=== PATIENT | female | born 1960 | race Hispanic/Latino ===

== ENCOUNTER 2018-05-16 17:55 | Emergency (ER) | payer BC ==
--- OUTSIDE RECORDS SUMMARY | 2018-05-16 17:57 | XMS REPORT | Clinical Summary ---
:1960 Author Organization [facility] Address [address] [place] [id number] Care Team Providers Name Role Phone Marco Marin MD Primary Care Provider Allergies Active Allergy Reactions Severity Noted Date Comments No Known Drug Allergies 03/15/2016 Medications Medication Sig Dispensed Refills Start Date End Date Status compress.stocking,kn Compression 1 each 1 04/02/2017 Active ee,reg,med Stockings use as miscIndications: directed Cardiac pacemaker in situ, Dizzy Active Problems Problem Noted Date Dizzy 04/02/2017 Cardiac pacemaker in situ 03/15/2016 Shortness of breath 03/15/2016 Syncope 03/15/2016 Encounters Date Type Specialty Care Team Description 10/18/2017 Hospital Encounter Procedural Jorge Luis Goodman Cardiology PhD 10/18/2017 Hospital Encounter Procedural Jorge Luis Goodman Cardiology PhD 10/18/2017 Hospital Encounter Radiology Roberto Carlos Nichols Transient cerebral MD Justice ischemia, unspecified type 08/30/2017 Transcribe Orders Radiology Malka Chapman Transient cerebral ischemia, unspecified type (Primary Dx) after 05/15/2017 Family History Medical History Relation Name Comments Coronary artery disease Other Family Hx Relation Name Status Comments Other Family Hx Social History Tobacco Use Types Packs/Day Years Used Date Never Smoker Smokeless Tobacco: Never Used Alcohol Use Drinks/Week oz/Week Comments Yes occasional Sex Assigned at Date Recorded Not on file Job Start Date Occupation Industry Not on file Not on file Not on file Travel History Travel Start Travel End No recent travel history available. Last Filed Vital Signs Vital Sign Reading Time Taken Blood Pressure 139/79 10/18/2017 1:52 PM CDT Pulse 70 10/18/2017 1:52 PM CDT Temperature - - Respiratory Rate 18 10/18/2017 1:00 PM CDT Oxygen Saturation 93% 10/18/2017 1:52 PM CDT Inhaled Oxygen Concentration - - Weight 81.6 kg (180 lb) 10/18/2017 1:00 PM CDT Height - - Body Mass Index 32.92 10/18/2017 1:00 PM CDT Plan of Treatment Health Maintenance Due Date Last Done Comments CERVICAL CANCER SCREENING 1981 BREAST CANCER SCREENING 2010 COLON CANCER SCREENING 2010 SHINGLES VACCINES (1 of 2) 2010 INFLUENZA VACCINE 12/18/2017 Procedures Procedure Name Priority Date/Time Associated Diagnosis Comments MRI BRAIN WO Routine 10/18/2017 2:00 PM Transient cerebral Results for this CONTRAST CDT ischemia, procedure are in unspecified type the results section. after 05/15/2017 Results MRI Brain Wo Contrast (10/18/2017 2:00 PM CDT) Narrative Performed At EXAMINATION:MRI BRAIN WO CONTRAST [facility] CLINICAL HISTORY:G45.9 Transient cerebral ischemic attackunspecified, G45.9 COMPARISON:MRI of the brain dated December 02, 2015 TECHNIQUE: Multiplanar MRI imaging without IV Gadolinium was performed. FINDINGS: The brain parenchyma is unremarkable with no signal abnormality. There is no evidence of acute infarction, hemorrhage, mass lesion, or midline shift. Ventricles, sulci, and cisterns are age-appropriate in size and configuration. There is no extra-axial fluid collection. Flow voids of the major intracranial vessels are intact. Visualized paranasal sinuses and mastoid air cells are clear. Bones, orbits, and soft tissues are unremarkable. IMPRESSION: Unremarkable brain MRI with no evidence of acute infarction, hemorrhage, or mass lesion. [facility]-[id number] Procedure Note Hm Interface, Radiology Results Incoming - 10/18/2017 2:44 PM CDT EXAMINATION: MRI BRAIN WO CONTRAST CLINICAL HISTORY: G45.9 Transient cerebral ischemic attack unspecified, G45.9 COMPARISON: MRI of the brain dated December 02, 2015 TECHNIQUE: Multiplanar MRI imaging without IV Gadolinium was performed. FINDINGS: The brain parenchyma is unremarkable with no signal abnormality. There is no evidence of acute infarction, hemorrhage, mass lesion, or midline shift. Ventricles, sulci, and cisterns are age-appropriate in size and configuration. There is no extra-axial fluid collection. Flow voids of the major intracranial vessels are intact. Visualized paranasal sinuses and mastoid air cells are clear. Bones, orbits, and soft tissues are unremarkable. IMPRESSION: Unremarkable brain MRI with no evidence of acute infarction, hemorrhage, or mass lesion. [id number] Performing Organization Address City/State/Zipcode Phone Number [facility] [address] [place] [address] after 05/15/2017 Insurance Payer Benefit Plan / Group Subscriber ID Type Phone Address BCBS BCBS CHOICE PPO/F[employer]ERAL EMPL PPO xxxxxxxxxxxx PPO [phone] [id number] (Work) Advance Directives Patient has advance care planning documents on file. For more information, please contact:Junior Claire[address] [place] [address]
[2018-05-16 18:46] LABS: Absolute Monocytes 0.5 K/uL (0.1-1.3); Basophils % 0.5 % (0-1.3); Eosinophils % 2.4 % (0-4.4); Hematocrit 37.9 % (36.0-45.0); Lymphocytes % 44.8 % (15.3-44.8); MPV 8.3 fL (7.6-11.3); Monocytes % 7.5 % (3.3-12.3); RBC Red Blood Cell Count 4.25 M/uL (3.86-4.86)
[2018-05-16 18:48] LABS: Urine Blood NEGATIVE (NEG); Urine Glucose NEGATIVE (NEG); Urine Protein NEGATIVE (NEG); Urine Specific Gravity 1.015 (1.005-1.030); Urine pH 7.5 (5.0-7.0)
[2018-05-16] MEDS ORDERED: ACETAMINOPHEN 325 MG TABLET ONE (18:53)
[2018-05-16] MEDS ORDERED: NA CHLORIDE 0.9% 1,000 ML ONE (18:55)
[2018-05-16 19:06] LABS: Albumin 3.4 g/dL (3.4-5.0); Bilirubin Total 0.3 mg/dL (0.2-1.0); Potassium 3.4 mmol/L (3.5-5.1); Protein, Total 6.8 g/dL (6.4-8.2); Troponin I 0.03 ng/mL (0.0-0.045)
--- NOTE | 2018-05-16 19:11 | EDPHYS ---
Physician Documentation [facility] Name: Crystal Bates Age: 58 yrs Sex: Female : 1960 Arrival Date: 05/16/2018 Time: 17:57 Bed 23 Private MD: ED Physician Juan Carlos Gardner HPI: 05/16 18:07 This 58 yrs old Female presents to ER via EMS with complaints of Near Syncope. nicol 19:12 This 58 yrs old Female presents to ER via EMS with complaints of Near Syncope, nicol after giving blood. 18:07 The patient has experienced near-syncope, almost passed out, felt dizzy, felt faint, nicol felt generally weak. Onset: The symptoms/episode began/occurred just prior to arrival. Duration: This was a single episode, that lasted an unknown period of time. Context: the episode(s) was witnessed, by family. Associated injury: The patient did not suffer any apparent associated injury. Associated signs and symptoms: Pertinent positives:. Current symptoms: Currently, the patient is not experiencing any symptoms. The patient has not experienced similar symptoms in the past. Historical: - Allergies: 18:07 No Known Allergies; kr2 - Home Meds: 18:07 Magnesium Oxide Oral [Active]; Aspirin Oral [Active]; kr2 - PMHx: 18:07 Hypertension; kr2 - PSHx: 18:07 pacemaker; ; kr2 - Immunization history:: Adult Immunizations up to date. - Social history:: Smoking status: Patient/guardian denies using tobacco. - Ebola Screening: : No symptoms or risks identified at this time. - Family history:: not pertinent. ROS: 18:07 Constitutional: Negative for fever, chills, and weight loss, Eyes: Negative for injury, nicol pain, redness, and discharge, ENT: Negative for injury, pain, and discharge, Neck: Negative for injury, pain, and swelling, Cardiovascular: Negative for chest pain, palpitations, and edema, Respiratory: Negative for shortness of breath, cough, wheezing, and pleuritic chest pain, Abdomen/GI: Negative for abdominal pain, nausea, vomiting, diarrhea, and constipation, Back: Negative for injury and pain, : Negative for injury, bleeding, discharge, and swelling, MS/Extremity: Negative for injury and deformity, Skin: Negative for injury, rash, and discoloration, Psych: Negative for depression, anxiety, suicide ideation, homicidal ideation, and hallucinations, Allergy/Immunology: Negative for hives, rash, and allergies, Endocrine: Negative for neck swelling, polydipsia, polyuria, polyphagia, and marked weight changes, Hematologic/Lymphatic: Negative for swollen nodes, abnormal bleeding, and unusual bruising. 18:07 Neuro: Positive for dizziness, near syncope, weakness. Exam: 18:07 Constitutional: This is a well developed, well nourished patient who is awake, alert, nicol and in no acute distress. Head/Face: Normocephalic, atraumatic. Eyes: Pupils equal round and reactive to light, extra-ocular motions intact. Lids and lashes normal. Conjunctiva and sclera are non-icteric and not injected. Cornea within normal limits. Periorbital areas with no swelling, redness, or edema. ENT: Nares patent. No nasal discharge, no septal abnormalities noted. Tympanic membranes are normal and external auditory canals are clear. Oropharynx with no redness, swelling, or masses, exudates, or evidence of obstruction, uvula midline. Mucous membranes moist. Neck: Trachea midline, no thyromegaly or masses palpated, and no cervical lymphadenopathy. Supple, full range of motion without nuchal rigidity, or vertebral point tenderness. No Meningismus. Chest/axilla: Normal chest wall appearance and motion. Nontender with no deformity. No lesions are appreciated. Cardiovascular: Regular rate and rhythm with a normal S1 and S2. No gallops, murmurs, or rubs. Normal PMI, no JVD. No pulse deficits. Respiratory: Lungs have equal breath sounds bilaterally, clear to auscultation and percussion. No rales, rhonchi or wheezes noted. No increased work of breathing, no retractions or nasal flaring. Abdomen/GI: Soft, non-tender, with normal bowel sounds. No distension or tympany. No guarding or rebound. No evidence of tenderness throughout. Back: No spinal tenderness. No costovertebral tenderness. Full range of motion. Skin: Warm, dry with normal turgor. Normal color with no rashes, no lesions, and no evidence of cellulitis. MS/ Extremity: Pulses equal, no cyanosis. Neurovascular intact. Full, normal range of motion. Neuro: Awake and alert, GCS 15, oriented to person, place, time, and situation. Cranial nerves II-XII grossly intact. Motor strength 5/5 in all extremities. Sensory grossly intact. Cerebellar exam normal. Normal gait. Psych: Awake, alert, with orientation to person, place and time. Behavior, mood, and affect are within normal limits. 18:07 Musculoskeletal/extremity: DVT Exam: No signs of deep vein thrombosis. no pain, no swelling, no tenderness, negative Homans' sign noted on exam, no appreciated bluish discoloration, no erythema, no increased warmth. Vital Signs: 18:05 BP 141 / 81; Pulse 60; Resp 17; Temp 98.8; Pulse Ox 99% ; Weight 82.55 kg; Height 5 ft. kr2 2 in. (157.48 cm); Pain 0/10; 18:52 BP 135 / 78; Pulse 60; Resp 17; Pulse Ox 98% ; kr2 19:20 BP 130 / 70; Pulse 60; Resp 17; Pulse Ox 100% ; kr2 18:05 Body Mass Index 33.29 (82.55 kg, 157.48 cm) kr2 MDM: 17:59 Patient medically screened. [facility] 18:11 Data reviewed: vital signs, nurses notes, lab test result(s), EKG, radiologic studies, [facility] CT scan, plain films. 05/16 18:07 Order name: CBC with Diff; Complete Time: 19:08 [facility] 05/16 18:07 Order name: Comprehensive Metabolic Panel; Complete Time: 19:08 [facility] 05/16 18:07 Order name: Troponin I; Complete Time: 19:08 [facility] 05/16 18:07 Order name: Chest Single View XRAY [facility] 05/16 18:07 Order name: BNP; Complete Time: 19:08 [facility] 05/16 18:37 Order name: Urine Dipstick--Ancillary (enter results); Complete Time: 19:08 05/16 18:07 Order name: EKG; Complete Time: 18:08 [facility] 05/16 18:07 Order name: EKG - Nurse/Tech; Complete Time: 18:19 [facility] 05/16 18:07 Order name: Urine Dipstick-Ancillary (obtain specimen); Complete Time: 18:40 [facility] Administered Medications: 18:19 Drug: NS 0.9% 1000 ml Route: IV; Rate: 1 bolus; Site: right antecubital; kr2 19:24 Follow up: Response: No adverse reaction; IV Status: Completed infusion kr2 18:47 Drug: Tylenol 650 mg Route: PO; kr2 19:24 Follow up: Response: No adverse reaction; Pain is decreased kr2 19:24 Drug: Potassium Effervescent Tablet 25 mEq Route: PO; kr2 19:27 Follow up: Response: Medication administered at discharge. kr2 Disposition: 05/16/18 19:10 Discharged to Home. Impression: Syncope and collapse - near. - Condition is Stable. - Discharge Instructions: Near-Syncope, Weakness, Near-Syncope, [id number], Weakness, [id number], Vasovagal Syncope, Adult. - Medication Reconciliation Form, Thank You Letter, Antibiotic Education, Prescription Opioid Use form. - Follow up: Private Physician; When: 2 - 3 days; Reason: Recheck today's complaints, Continuance of care, Re-evaluation by your physician. - Problem is new. - Symptoms have improved. Signatures: Dispatcher [employer] EDJuan Carlos Esquivel MD MD cha Reaves, Karey, RN RN kr2 Corrections: (The following items were deleted from the chart) 19:36 19:10 05/16/2018 19:10 Discharged to Home. Impression: Syncope and collapse - near. kr2 Condition is Stable. Forms are Medication Reconciliation Form, Thank You Letter, Antibiotic Education, Prescription Opioid Use. Follow up: Private Physician; When: 2 - 3 days; Reason: Recheck today's complaints, Continuance of care, Re-evaluation by your physician. Problem is new. Symptoms have improved. nicol
--- NOTE | 2018-05-16 19:11 | ER ---
Nurse's Notes [facility] Name: Crystal Bates Age: 58 yrs Sex: Female : 1960 Arrival Date: 05/16/2018 Time: 17:57 Bed 23 Private MD: Diagnosis: Syncope and collapse-near Presentation: 05/16 18:01 Presenting complaint: EMS states: Patient gave blood today and began feeling dizzy, kr2 light headed and like she was going to pass out. We started an IV and gave her NS and she has started to feel better, she does have a pacemaker. Transition of care: patient was not received from another setting of care. Onset of symptoms. Risk Assessment: Do you want to hurt yourself or someone else? Patient reports no desire to harm self or others. Initial Sepsis Screen: Does the patient meet any 2 criteria? No. Patient's initial sepsis screen is negative. Does the patient have a suspected source of infection? No. Patient's initial sepsis screen is negative. Care prior to arrival: Medication(s) given: Normal saline infusion, IV initiated. 20 GA, in the right antecubital area, Glucose check: 121. 18:01 Method Of Arrival: EMS: [facility] kr2 18:01 Acuity: SONIA 3 kr2 Triage Assessment: 18:08 General: Appears in no apparent distress. comfortable, well nourished, Behavior is kr2 calm, cooperative. Pain: Denies pain. Neuro: Level of Consciousness is awake, alert, obeys commands, Oriented to person, place, time, situation, Appropriate for age. Cardiovascular: Capillary refill < 3 seconds in bilateral fingers Patient's skin is warm and dry. Rhythm is Respiratory: Airway is patent Respiratory pattern is regular, symmetrical. GI: Abdomen is non-distended, obese. Derm: Skin is intact, is healthy with good turgor, Skin is pink, warm \T\ dry. pale. Musculoskeletal: Circulation, motion, and sensation intact. Historical: - Allergies: 18:07 No Known Allergies; kr2 - Home Meds: 18:07 Magnesium Oxide Oral [Active]; Aspirin Oral [Active]; kr2 - PMHx: 18:07 Hypertension; kr2 - PSHx: 18:07 pacemaker; ; kr2 - Immunization history:: Adult Immunizations up to date. - Social history:: Smoking status: Patient/guardian denies using tobacco. - Ebola Screening: : No symptoms or risks identified at this time. - Family history:: not pertinent. Screenin:07 Abuse screen: Denies threats or abuse. Denies injuries from another. Nutritional kr2 screening: No deficits noted. Tuberculosis screening: No symptoms or risk factors identified. Fall Risk Assessment: 18:27 Reassessment: See triage assessment. kr2 19:29 Reassessment: Patient appears in no apparent distress at this time. Patient and/or kr2 family updated on plan of care and expected duration. Pain level reassessed. Patient is alert, oriented x 3, equal unlabored respirations, skin warm/dry/pink. Patient denies pain at this time. Patient states feeling better. Vital Signs: 18:05 BP 141 / 81; Pulse 60; Resp 17; Temp 98.8; Pulse Ox 99% ; Weight 82.55 kg; Height 5 ft. kr2 2 in. (157.48 cm); Pain 0/10; 18:52 BP 135 / 78; Pulse 60; Resp 17; Pulse Ox 98% ; kr2 19:20 BP 130 / 70; Pulse 60; Resp 17; Pulse Ox 100% ; kr2 18:05 Body Mass Index 33.29 (82.55 kg, 157.48 cm) kr2 ED Course: 17:57 Patient arrived in ED. ss 17:59 Juan Carlos Gardner MD is Attending Physician. nicol 18:01 Joana Drew, MATTIE is Primary Nurse. kr2 18:04 Triage completed. kr2 18:09 Patient has correct armband on for positive identification. Bed in low position. Call kr2 light in reach. Side rails up X2. Adult w/ patient. quality assurance monitor final on. Pulse ox on. NIBP on. Door closed. Warm blanket given. Head of bed elevated. 18:10 Arm band placed on right wrist. kr2 18:21 EKG done, by ED staff, reviewed by Juan Carlos Gardner MD. kr2 18:58 Chest Single View XRAY In Process Unspecified. EDMS 19:29 No provider procedures requiring assistance completed. IV discontinued, intact, kr2 bleeding controlled, No redness/swelling at site. Pressure dressing applied. Administered Medications: 18:19 Drug: NS 0.9% 1000 ml Route: IV; Rate: 1 bolus; Site: right antecubital; kr2 19:24 Follow up: Response: No adverse reaction; IV Status: Completed infusion kr2 18:47 Drug: Tylenol 650 mg Route: PO; kr2 19:24 Follow up: Response: No adverse reaction; Pain is decreased kr2 19:24 Drug: Potassium Effervescent Tablet 25 mEq Route: PO; kr2 19:27 Follow up: Response: Medication administered at discharge. kr2 Outcome: 19:10 Discharge ordered by MD. camarena 19:30 Discharged to home ambulatory, with family. kr2 19:30 Condition: good 19:30 Discharge instructions given to patient, family, Instructed on discharge instructions, follow up and referral plans. Demonstrated understanding of instructions, follow-up care. 19:36 Patient left the ED. kr2 Signatures: Dispatcher [employer] EDMS Juan Carlos Gardner MD MD cha Smirch, Shelby, RN RN Joana Drew RN RN kr2 Corrections: (The following items were deleted from the chart) 19:30 19:30 BP 130 / 70; Pulse 60bpm; Resp 17bpm; Pulse Ox 100%; kr2 kr2
[2018-05-16] MEDS ORDERED: POTASSIUM 25 MEQ EFFERV TAB ONE (19:30)
--- NOTE | 2018-05-16 19:53 | RAD REPORT ---
EXAM DESCRIPTION: Freddy Single View05/16/2018 6:57 pm CLINICAL HISTORY: sob COMPARISON: none FINDINGS: The lungs appear clear of acute infiltrate. The heart is mildly enlarged. Pacemaker leads are in place. IMPRESSION: No acute abnormalities displayed
--- NOTE | 2018-05-17 08:30 | EKG ---
Test Date: 2018-05-16 Test Time: 18:13:39 Roller Leveler: RL MEASUREMENT RESULTS: Intervals: Rate: 60 CT: 310 QRSD: 130 QT: 462 QTc: 462 [place]: P: 17 CT: 310 QRS: -45 T: -18 INTERPRETIVE STATEMENTS: Atrial-paced rhythm with prolonged AV conduction Left axis deviation Nonspecific intraventricular block Cannot rule out Septal infarct, age undetermined Abnormal ECG Compared to ECG 08/16/2007 20:00:50 Sinus rhythm no longer present Myocardial infarct finding still present Electronically Signed On 05-17-18 08:29:50 DRUG ENFORCEMENT AGENT by Demario Reynoso
== END 2018-05-16 19:36 | disposition home or self-care (01) ==
LOC: ER 17:55
DX: R55 Syncope and collapse (principal); R94.31 Abnormal electrocardiogram [ECG] [EKG]; I45.4 Nonspecific intraventricular block; I10 Essential (primary) hypertension; Z79.82 Long term (current) use of aspirin
CPT/HCPCS: 36415; 71045; 80053; 81003; 83880; 84484; 85025; 93005; 96360; 99284; J7030

== ENCOUNTER 2019-06-15 07:11 | Day surgery (SDC) | payer BC ==
[2019-06-15] MEDS ORDERED: Ringers Lactate 1,000 ML IV ONE (08:02)
[2019-06-15] MEDS ORDERED: propofoL 200 MG/20 ML VIAL IV ONE (08:26)
--- NOTE | 2019-06-15 08:58 | ENDO RPT ---
[address], [address] COLONOSCOPY PROCEDURE REPORT EXAM DATE: 06/15/2019 PATIENT NAME: Crystal Bates MR #: [id number] BIRTHDATE: 1960 ATTENDING: Justin Collazo MD STATUS: outpatient [employer] DE[employer] SHERIFF: Jessica Hickman and Luann Hudson RN INDICATIONS: The patient is a 59 yr old Female here for a colonoscopy due to change in bowel habits PROCEDURE PERFORMED: Colonoscopy MEDICATIONS: Per Anesthesia. ESTIMATED BLOOD LOSS: None CONSENT: The patient understands the risks and benefits of the procedure and understands that these risks include, but are not limited to: sedation, allergic reaction, infection, perforation and/or bleeding. Alternative means of evaluation and treatment include, among others: physical exam, x-rays, and/or surgical intervention. The patient elects to proceed with this endoscopic procedure. DESCRIPTION OF PROCEDURE: During intra-op preparation period all mechanical medical equipment was checked for proper function. Hand hygiene and appropriate measures for infection prevention was taken. Procedure, possible complications, alternatives including, but not limited to possibility of bleeding, perforation, tear, infection, sepsis, need for surgery, need for blood transfusion, were explained to the patient. After the risks, benefits and alternatives of the procedure were thoroughly explained, Informed consent was verified, confirmed and timeout was successfully executed by the treatment team. The patient was placed in the left lateral position. A digital rectal exam was performed and revealed external hemorrhoids. After appropriate level of anesthesia, the scope was passed. The [id number] ([id number]) endoscope was introduced through the anus and advanced to the cecum, which was identified by transillumination from the light source, the appendix, and the ileocecal valve. The instrument was then slowly withdrawn as the colon was fully examined. Scope withdrawal time was . COLON FINDINGS: Diverticula was found in the descending colon. The opening was medium sized. Retroflexed views revealed no abnormalities and Retroflexed views revealed small hemorrhoids. The scope was then completely withdrawn from the patient and the procedure terminated. ADVERSE EVENTS: There were no complications. IMPRESSIONS: 1. Diverticula in the descending colon 2. External hemorrhoids 3. Internal hemorrhoids RECOMMENDATIONS: 1. follow-up: office 1 week(s) 2. hemorrhoidal hygiene 3. no seeds in diet RECALL: Return in 5-10 year(s) for Colonoscopy. Justin Collazo MD eSigned: Justin Collazo MD 06/15/2019 8:58 AM cc: Marco Marin M.D. CPT CODES: ICD9 CODES: PATIENT NAME: Crystal BatesRanjan MR#: [id number]
[2019-06-15 09:10] VITALS: TEMP 97.5
[2019-06-15 09:11] VITALS: O2SAT 99
[2019-06-15 09:42] VITALS: BP 144/83
== END 2019-06-15 09:41 | disposition home or self-care (01) ==
LOC: OR 07:11
PROVIDERS: ATTEND Surgery
PROC: 0DJD8ZZ Inspection of Lower Intestinal Tract, Via Natural or Artificial Opening Endoscopic (ICD-10-PCS; principal; 2019-06-15 08:30)
DX: K59.00 Constipation, unspecified (principal); K57.30 Diverticulosis of large intestine without perforation or abscess without bleeding; K64.4 Residual hemorrhoidal skin tags; K64.8 Other hemorrhoids
CPT/HCPCS: J2704; J7120

== ENCOUNTER 2022-11-07 20:54 | Inpatient (IN) | payer BC ==
--- OUTSIDE RECORDS SUMMARY | 2022-11-07 20:58 | XMS REPORT | Continuity of Care Document ---
:1960 Author Organization [facility] t Address [address] [facility]. [address] [place] [address] Care Team Providers Name Role Phone Marco Augustin MD Primary Care Physician Arjun Marc Attending Clinician Unavailable Danilo Laurent Attending Clinician Unavailable Mishel Jacques MA Attending Clinician Unavailable MARCUS RIZZO Attending Clinician Unavailable MD MARCUS RIZZO Attending Clinician Unavailable MARÍA HOPPER Attending Clinician Unavailable Malka Jain RN Attending Clinician Unavailable Only, Adc Test Attending Clinician Unavailable Wan Larson MD Attending Clinician WAN LARSON Attending Clinician Unavailable Doctor Unassigned, [place] Attending Clinician Unavailable Arjun Marc Admitting Clinician Unavailable Danilo Laurent Admitting Clinician Unavailable MARCUS RIZZO Admitting Clinician Unavailable MD MARCUS RIZZO Admitting Clinician Unavailable MARÍA HOPPER Admitting Clinician Unavailable Payers Payer Name Policy Type Policy Number Effective Date Expiration Date S ource Problems Condition Condition Condition Status Onset Resolution Last Treating Co mments Source Name Details Category Date Date Treatment Clinician Date Exhaustion Exhaustion Disease Active M ethodi of cardiac of cardiac 9-[facility] pacemaker pacemaker 00:00: [facility] battery battery 00 l Abnormal Abnormal Disease Active Metho di cardiovasc cardiovasc 8-11 st ular ular 00:00: Hospita stress stress 00 l test test CAD in CAD in Disease Active Methodi [place] 8-11 st artery artery 00:00: Hospita 00 l Dizzy Dizzy Disease Active 2016-05 Methodi 1-[facility] 00:00: Hospita 00 l Cardiac Cardiac Disease Active 2015-05 Methodi pacemaker pacemaker 0-27 st in situ in situ 00:00: Hospita 00 l SOB SOB Disease Active 2015-05 Methodi (shortness (shortness 0-27 st of breath) of breath) 00:00: Ho spita 00 l Syncope Syncope Disease Active 2015-05 Methodi 0[facility] [address] 00:00: Hospita 00 l Allergies, Adverse Reactions, Alerts Allergy Allergy Status Severity Reaction(s) Onset Inactive Treating Comm ents Source Name Type Date Date Clinician No Known DA Active U [facility] Allergie 9-12 [facility] 00:[facility]: [facility] 00 [place] [facility] [place] NO KNOWN Drug Active Univers ALLERGIE Class ity of S [facility] Family History Family Member Diagnosis Comments Start Date Stop Date Source Other Coronary artery [facility] disease Social History Social Habit Start Date Stop Date Quantity Comments Source Exposure to Not sure [facility] SARS-CoV-2 (event) [facility] Gender identity [facility] Sexual orientation [facility] History of Social 2022-08-23 2022-08-[address] function 00:00:00 00:00:00 Hospital Alcohol intake 2020-02-05 2020-02-05 Current drinker Metho dist 00:00:00 00:00:00 of [facility] Hospital (finding) Tobacco use and 2017-04-23 2017-04-23 Smokeless tobacco Me [facility]ist exposure 00:00:00 00:00:00 non-user Hospital Alcohol Comment 2016-03-15 2016-03-15 occasional [facility] 00:00:00 00:00:00 Hospital Sex Assigned At [birth year] [facility] 00:00:00 00:00:00 Hospital Smoking Status Start Date Stop Date Source Unknown if ever smoked [facility] Never smoked tobacco [facility]spital Medications Ordered Filled Start Stop Current Ordering Indication Dosage Frequency Signature Comments Components Source Medication Medication Date Date Medication? 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 [facility] mg tablet 21 l tretinoin-e 2020-0 Yes QD Apply 1 Met hodi mol 9-skin 02-[address] cleansr1 09:20: n Hospita (TRETIN-X 21 topically l Cream Kit) daily. 0.1 % combo Topical pack cream UNABLE TO 2020-0 Yes Q90D every 3 Metho di FIND 02-15 (three) st 09:20: months. Hospita 21 Bio T l hormone replacemen t pellets vitamin 2020-0 Yes 1{tbl} QD Take 1 Method i D3-folic 02-[address] acid 5,000 09:20: mouth Hospit a unit- 1 mg 21 daily. l tablet UNABLE TO 2020-0 Yes 1{tbl} QD 1 tablet Me thodi FIND 02-[address] 09:20: Shield 1 Hospita 21 tablet l daily (immune supplement ) docusate 2020-0 Yes 300mg QD Take 300 Meth hawk sodium 9-[address] (COLACE) 09:20: mouth Hospita 100 MG 21 daily. l capsule GARLIC ORAL 2020-0 Yes 1{tbl} QD Take 1 Me thodi -[address] 09:20: mouth Hospita 21 daily. l magnesium 2020-0 Yes 800mg QD Take 800 Met hodi oxide 9-[address] (MAG-OX) 09:20: mouth Hospita 400 mg 21 daily. l (241.3 mg magnesium) tablet multivitami 2020-0 Yes 1{tbl} QD Take 1 Me thodi n - tablet by st (THERAGRAN) 09:20: mouth Hospi ta tablet 21 daily. l medroxyPROG 2020-0 Yes 10mg QD Take 10 mg Methodi ESTERone - by mouth st (PROVERA) 09:20: daily. Hospit a 10 MG 21 l tablet TURMERIC 2020-0 Yes 1{tbl} QD Take 1 Metho di ORAL - tablet by st 09:20: mouth Hospita 21 daily. l UNABLE TO 2020-0 Yes DIMS SGS Meth hawk FIND 02-[address] 09:20: tablet Hospita 21 daily l UNABLE TO 2020-0 Yes Liver Methodi FIND 02-[address] 09:20: take 1 Hospita 21 tablet [place] [address] 50mg Q8H Take 50 mg Me thodi (ULTRAM) 50 9-[address] mg tablet 09:20: every 8 Hospi ta 21 (eight) l hours as needed for moderate pain .acute pain. New prescripti on minocycline Yes 100mg Q.5D Take 100 M ethodi (MINOCIN) 9-[address] 100 MG 09:20: mouth 2 Hospita capsule 21 (two) l times a day. For 5 days only ( new prescripti on ) No known No [facility] No known No [facility] medications ity [facility] No known No Univers medications [facility] Procedures Procedure Date / Time Performed Performing Clinician [facility] debra [id number] 2020-05-10 00:00:00 MICAELA Anasri [facility] PHYSICIAN ORDERS 2020-01-04 05:01:00 Doctor Unassigned, No Unive [facility] Plan of Care Planned Activity Planned Date Details Comments Source Future Scheduled 2022-10-24 [facility]ening for [facility] Test 20:06:53 malignant neoplasm of colon (procedure) [code = 954071885] Future Scheduled 2022-10-24 [facility]ening for [facility] Test 20:06:53 malignant neoplasm of colon (procedure) [code = 151218286] Future Scheduled 2022-10-24 [facility]ening for [facility] Test 20:06:53 malignant neoplasm of colon (procedure) [code = 491352933] Future Scheduled 2022-10-24 COVID-19 VACCINE (#1) [facility] Test 20:06:53 [code = COVID-19 VACCINE (#1)] Future Scheduled 2022-10-24 Pneumococcal Vaccine: [facility] Test 20:06:53 Pediatrics (0 to 5 Years) and At-Risk Patients (6 to 64 Years) (1 - PCV) [code = Pneumococcal Vaccine: Pediatrics (0 to 5 Years) and At-Risk Patients (6 to 64 Years) (1 - PCV)] Future Scheduled 2022-10-24 Hepatitis C screening [facility] Test 20:06:53 (procedure) [code = 967066009] Future Scheduled 2022-10-24 Screening for [facility] Test 20:06:53 malignant neoplasm of cervix (procedure) [code = 298930277] Future Scheduled 2022-10-24 BREAST CANCER [facility] Test 20:06:53 SCREENING [code = BREAST CANCER SCREENING] Future Scheduled 2022-10-24 Screening for [facility] Test 20:06:53 malignant neoplasm of colon (procedure) [code = 311547181] Future Scheduled 2022-10-24 Screening for [facility] Test 20:06:53 malignant neoplasm of colon (procedure) [code = 615514894] Future Scheduled 2022-10-24 SHINGLES VACCINES (1 Met [facility] Test 20:06:53 of 2) [code = SHINGLES VACCINES (1 of 2)] Future Scheduled 2022-10-24 INFLUENZA VACCINE [facility] Test 20:06:53 [code = INFLUENZA VACCINE] Encounters Start End Encounter Admission Attending Care Care Encounter Source Date/Time Date/Time Type Type Clinicians Facility Department ID 2020-05-08 Inpatient JULITA Marc [facility] [id number] [facility] 02:05:[address] [place] [address] 2022-08-01 2022-08-01 Outpatient [facility] [id number] [facility] 11:52:00 11:52:00 Danilo 35 [facility] 2022-07-05 2022-07-05 Telephone Jacques, 1.2.840.1 [id number] Methodi 00:00:00 00:00:[address] 3.430.2.7 Hospit a .3.652555 l .8 2022-07-04 2022-07-04 Telephone Jacques, 1.2.840.1 [id number] Methodi 00:00:00 00:00:[address] 3.430.2.7 Hospit a .3.740447 l .8 2022-02-15 2022-02-15 Outpatient KYLE Laurent [facility] [id number] [facility] 08:00:00 08:00:00 Danilo 65 [facility] 2020-02-01 2020-02-01 Outpatient [facility] [id number] [place] [address] 00:00:00 00:00:00 NADIM 084 Method i 2020-01-29 2020-01-29 Outpatient SO, [facility] [id number] [place] 00:00:00 00:00:00 NADIM 174 Method i 2020-01-07 2020-01-07 Outpatient HOPPER, [facility] [id number] [place] 00:00:00 00:00:00 MARÍA 632 Method i 2020-01-05 2020-01-05 Letter SASCHA Jain 1.2.840.114 [id number] 00:00:00 00:00:00 (Out) Malka PEACOCK 350.1.13.10 it y of [place] [address].2.7.2.[address] Mick [id number] [address] 2020-01-05 2020-01-05 Letter SASCHA Jain 1.2.840.114 [id number] 00:00:00 00:00:00 (Out) Malka PEACOCK 350.1.13.10 [place] [address]..2.[facility] [id number] 019 2020-01-04 2020-01-04 Laboratory Only, [facility] Test [facility] 1.2.840. 114 [id number] [facility] 09:16:06 09:31:06 Only Wan Larson 350.1.13.10 ity [facility] 4.2.7.2.686 [facility] [id number] [address] 2020-01-04 2020-01-04 Laboratory Only, [facility] 1.2.840.114 [id number] 09:16:06 09:31:06 Only Test [place] 350.1.13.10 [place] 4.2.7.2.686 [place] [id number] 2020-01-04 2020-01-04 Outpatient R WAN LARSON [facility] [id number] Univers 09:00:00 09:00:00 ity [facility] 2020-01-04 2020-01-04 Orders Doctor CAICEDO 1.2.840.114 [id number] 00:00:00 00:00:00 Only UnassignedAYUSH 350.1.13.10 [place] [facility] 4.2.7.2.686 [id number] 009 2020-01-04 2020-01-04 Orders Doctor SASCHA 1.2.840.114 [id number] 00:00:00 00:00:00 Only Unassigned, AYUSH 350.1.13.10 ity of [place] [facility] 4.2.7.2.[address] Mick as [id number] [facility] 009 Branch 2019-12-29 2019-12-29 Outpatient WARD [facility] [id number] [place] 00:00:00 00:00:00 MARÍA [address] 2019-12-22 2019-12-22 Outpatient [facility] [id number] [place] 00:00:00 00:00:[address] 2019-12-08 2019-12-08 Outpatient WARD [facility] [id number] [place] 00:00:00 00:00:00 MARÍA [address] Results Test Description Test Time Test Comments Results Result Comments Source SURGICAL 2022-08-02 16:12:00 Test Item Value Reference Range Interpretation Comme nts SURGICAL RUN (test DATE: 08/02/22 [facility] PAGE 1 RUN TIME: 1612 Specimen Inquiry RUN USER: INTERFACE code = LORE SR) ENT: LAKSHMI BATES LOC: JOHN U #: [id number] AGE/SX: 62/F ROOM: RE08/01/22REG DR: Latasha Laurent DO : 60 BED: DIS: STATUS: REG REF TLOC: SPEC #: [id number] RECD: 08/01/22 STATUS: SOUSteve REQ #: [id number] ZENON: 08/01/[address]: Danilo Laurent DO ENTE RED: 08/01/22 SP TYPE: SURGICAL OTHR DR: ORDERED: ANATOMIC SPEC, SPEC TRACK, [id number] PROC EDURES: [id number] (08/01/22) TISSUES: A. ENDOMETRIUM CURETTINGS / BIOPSY - CURETTINGS POLYP F INAL DIAGNOSIS A. UTERUS, ENDOMETRIAL POLYP, CURETTAGE: - Fragments of benign endocervical tissu e with polyp, negative for atypia, negative for malignancy - Copious mucin GROSS DESCRIPTION Rece ived in formalin labeled with the patient's name, , MRN and designated"endometrial curet tings", is a 4.5 x 4.5 x 0.3 cm aggregate of minute sagastume tissue fragmentsand an abundance of clear mucin. Received in a surgical collection sock. Filtered andentirely submitted in kecia settes A1-A3. MP 08/01/22 Technical component performed at [facility] [place] [address] Immunohistochemical stains and Special Stains are performed at [facility] [employer], [address], [place] [address] Unless gross only, the diagnosis is based upon microscopic examination. Immunohistochemistry: This t est was developed and its performance characteristicsdetermined by this laboratory. It has not been approved nor does it need approval by [place] FDA. Appropriate positive and negative contro ls are reviewed and judged to beacceptable. This laboratory is certified under the Clinical Laboratory ImprovementAmendments (CLIA-88) as qualified to perform high complexity clinical lab oratory testing. CLINICAL INFORMATION 3/15/23 POST MENOPAUSAL BLEEDING. OUT OF BODY 0834, IN FORMALIN 0835 DMITRY ALEJANDRE ON NEXT PAGE RUN DATE: 08/02/22 [facility] PAGE 2 RUN TIME: 1611 Specimen Inquiry RUN USER: INTERFACE SPEC #: [id number] PATIENT: LAKSHMI BATES Meghan #[id number] (Continued) ------- Signed SIGNATURE ON FILE Darwin Pitts 08/02/22 7383 END OF REPORT CBC W/AUTO [id number] 07:52:00 Test Item Value Reference Range Interpretation Comments WHITE BLOOD CELL (test code = 7.5 x10 3/uL 4.5-11.0 N WBC) RED BLOOD CELL (test code = 3.09 x10 6/uL 3.54-5.02 L RBC) HEMOGLOBIN (test code = HGB) 8.5 g/dL 11.0-15.0 L HEMATOCRIT (test code = HCT) 27.6 % 33.0-45.0 L MEAN CELL VOLUME (test code = 89.3 fL 81.0-99.0 N MCV) MEAN CELL HGB (test code = MCH) 27.5 pg 27.0-33.0 N MEAN CELL HGB CONCETRATION 30.8 g/dL 33.0-37.0 L (test code = MCHC) RED CELL DISTRIBUTION WIDTH CV 14.6 % 11.5-14.5 H (test code = RDW) RED CELL DISTRIBUTION WIDTH SD 46.8 fL 37.0-54.0 N (test code = RDW-SD) PLATELET COUNT (test code = 528 x10 3/uL 150-400 H PLT) MEAN PLATELET VOLUME (test code 9.4 fL 7.0-9.0 H = MPV) NEUTROPHIL % (test code = NT%) 65.9 % 56.0-77.0 N IMMATURE GRANULOCYTE % (test 1.7 % 0.0-2.0 N code = IG%) LYMPHOCYTE % (test code = LY%) 19.9 % 14.0-32.0 N MONOCYTE % (test code = MO%) 8.9 % 4.8-9.0 N EOSINOPHIL % (test code = EO%) 2.9 % 0.3-3.7 N BASOPHIL % (test code = BA%) 0.7 % 0.0-2.0 N NUCLEATED RBC % (test code = 0.0 % 0-0 N NRBC%) NEUTROPHIL # (test code = NT#) 4.95 x10 3/uL 2.0-7.6 N IMMATURE GRANULOCYTE # (test 0.13 x10 3/uL 0.00-0.03 H code = IG#) LYMPHOCYTE # (test code = LY#) 1.50 x10 3/uL 1.0-3.8 N MONOCYTE # (test code = MO#) 0.67 x10 3/uL 0.1-0.8 N EOSINOPHIL # (test code = EO#) 0.22 x10 3/uL 0.0-0.2 H BASOPHIL # (test code = BA#) 0.05 x10 3/uL 0.0-0.2 N NUCLEATED RBC # (test code = 0.00 x10 3/uL 0.0-0.1 N NRBC#) MANUAL DIFF REQUIRED (test code NO = MDIFF) BASIC METABOLIC [id number] 07:31:00 Test Item Value Reference Range Interpretation Comments SODIUM (test code = NA) 139 mEq/L 134-147 N POTASSIUM (test code = 3.5 mEq/L 3.4-5.0 N K) CHLORIDE (test code = 104 mEq/L 100-108 N CL) CARBON DIOXIDE (test 26 mEq/l 21-33 N code = CO2) ANION GAP (test code = 13 0-20 N GAP) GLUCOSE (test code = 102 mg/dL 70-110 GLU) BLOOD UREA NITROGEN 17 mg/dL 7-18 N (test code = BUN) GLOMERULAR FILTRATION 20.6 80-90 L Units of measure = RATE (test code = GFR) ml/mi n/1.73 m2 CREATININE (test code = 2.4 mg/dL 0.6-1.3 H CREAT) CALCIUM (test code = 9.5 mg/dL 8.0-10.5 N CA) [id number] 07:31:00 Test Item Value Reference Range Interpretation Comments PHOSPHOROUS (test code = PHOS) 4.4 MG/DL 2.5-4.9 N [id number] 07:31:00 Test Item Value Reference Range Interpretation Comments MAGNESIUM (test code = MAG) 2.27 mg/dL 1.80-2.40 N CBC W/AUTO [id number] 08:06:00 Test Item Value Reference Range Interpretation Comments WHITE BLOOD CELL (test code = 10.6 x10 3/uL 4.5-11.0 N WBC) RED BLOOD CELL (test code = 3.06 x10 6/uL 3.54-5.02 L RBC) HEMOGLOBIN (test code = HGB) 8.4 g/dL 11.0-15.0 L HEMATOCRIT (test code = HCT) 27.4 % 33.0-45.0 L MEAN CELL VOLUME (test code = 89.5 fL 81.0-99.0 N MCV) MEAN CELL HGB (test code = MCH) 27.5 pg 27.0-33.0 N MEAN CELL HGB CONCETRATION 30.7 g/dL 33.0-37.0 L (test code = MCHC) RED CELL DISTRIBUTION WIDTH CV 14.4 % 11.5-14.5 N (test code = RDW) RED CELL DISTRIBUTION WIDTH SD 46.5 fL 37.0-54.0 N (test code = RDW-SD) PLATELET COUNT (test code = 537 x10 3/uL 150-400 H PLT) MEAN PLATELET VOLUME (test code 9.4 fL 7.0-9.0 H = MPV) NEUTROPHIL % (test code = NT%) 74.9 % 56.0-77.0 N IMMATURE GRANULOCYTE % (test 2.0 % 0.0-2.0 N code = IG%) LYMPHOCYTE % (test code = LY%) 14.8 % 14.0-32.0 N MONOCYTE % (test code = MO%) 5.9 % 4.8-9.0 N EOSINOPHIL % (test code = EO%) 1.9 % 0.3-3.7 N BASOPHIL % (test code = BA%) 0.5 % 0.0-2.0 N NUCLEATED RBC % (test code = 0.0 % 0-0 N NRBC%) NEUTROPHIL # (test code = NT#) 7.93 x10 3/uL 2.0-7.6 H IMMATURE GRANULOCYTE # (test 0.21 x10 3/uL 0.00-0.03 H code = IG#) LYMPHOCYTE # (test code = LY#) 1.56 x10 3/uL 1.0-3.8 N MONOCYTE # (test code = MO#) 0.62 x10 3/uL 0.1-0.8 N EOSINOPHIL # (test code = EO#) 0.20 x10 3/uL 0.0-0.2 N BASOPHIL # (test code = BA#) 0.05 x10 3/uL 0.0-0.2 N NUCLEATED RBC # (test code = 0.00 x10 3/uL 0.0-0.1 N NRBC#) MANUAL DIFF REQUIRED (test code NO = MDIFF) BASIC METABOLIC [id number] 07:57:00 Test Item Value Reference Range Interpretation Comments SODIUM (test code = NA) 138 mEq/L 134-147 N POTASSIUM (test code = 3.6 mEq/L 3.4-5.0 N K) CHLORIDE (test code = 103 mEq/L 100-108 N CL) CARBON DIOXIDE (test 26 mEq/l 21-33 N code = CO2) ANION GAP (test code = 13 0-20 N GAP) GLUCOSE (test code = 161 mg/dL 70-110 H GLU) BLOOD UREA NITROGEN 19 mg/dL 7-18 H (test code = BUN) GLOMERULAR FILTRATION 22.8 80-90 L Units of measure = RATE (test code = GFR) ml/mi n/1.73 m2 CREATININE (test code = 2.2 mg/dL 0.6-1.3 H CREAT) CALCIUM (test code = 9.2 mg/dL 8.0-10.5 N CA) BASIC METABOLIC [id number] 07:38:00 Test Item Value Reference Range Interpretation Comments SODIUM (test code = NA) 137 mEq/L 134-147 N POTASSIUM (test code = 3.1 mEq/L 3.4-5.0 L K) CHLORIDE (test code = 101 mEq/L 100-108 N CL) CARBON DIOXIDE (test 26 mEq/l 21-33 N code = CO2) ANION GAP (test code = 13 0-20 N GAP) GLUCOSE (test code = 90 mg/dL 70-110 N GLU) BLOOD UREA NITROGEN 20 mg/dL 7-18 H (test code = BUN) GLOMERULAR FILTRATION 20.6 80-90 L Units of measure = RATE (test code = GFR) ml/mi n/1.73 m2 CREATININE (test code = 2.4 mg/dL 0.6-1.3 H CREAT) CALCIUM (test code = 8.8 mg/dL 8.0-10.5 N CA) [id number] 07:38:00 Test Item Value Reference Range Interpretation Comments PHOSPHOROUS (test code = PHOS) 4.7 MG/DL 2.5-4.9 N [id number] 07:38:00 Test Item Value Reference Range Interpretation Comments MAGNESIUM (test code = MAG) 2.04 mg/dL 1.80-2.40 N CBC W/AUTO [id number] 07:16:00 Test Item Value Reference Range Interpretation Comments WHITE BLOOD CELL (test code = 12.8 x10 3/uL 4.5-11.0 H WBC) RED BLOOD CELL (test code = 2.74 x10 6/uL 3.54-5.02 L RBC) HEMOGLOBIN (test code = HGB) 7.6 g/dL 11.0-15.0 L HEMATOCRIT (test code = HCT) 24.4 % 33.0-45.0 L MEAN CELL VOLUME (test code = 89.1 fL 81.0-99.0 N MCV) MEAN CELL HGB (test code = MCH) 27.7 pg 27.0-33.0 N MEAN CELL HGB CONCETRATION 31.1 g/dL 33.0-37.0 L (test code = MCHC) RED CELL DISTRIBUTION WIDTH CV 14.6 % 11.5-14.5 H (test code = RDW) RED CELL DISTRIBUTION WIDTH SD 46.5 fL 37.0-54.0 N (test code = RDW-SD) PLATELET COUNT (test code = 492 x10 3/uL 150-400 H PLT) MEAN PLATELET VOLUME (test code 9.6 fL 7.0-9.0 H = MPV) NEUTROPHIL % (test code = NT%) 77.1 % 56.0-77.0 H IMMATURE GRANULOCYTE % (test 1.8 % 0.0-2.0 N code = IG%) LYMPHOCYTE % (test code = LY%) 12.3 % 14.0-32.0 L MONOCYTE % (test code = MO%) 6.7 % 4.8-9.0 N EOSINOPHIL % (test code = EO%) 1.7 % 0.3-3.7 N BASOPHIL % (test code = BA%) 0.4 % 0.0-2.0 N NUCLEATED RBC % (test code = 0.0 % 0-0 N NRBC%) NEUTROPHIL # (test code = NT#) 9.82 x10 3/uL 2.0-7.6 H IMMATURE GRANULOCYTE # (test 0.23 x10 3/uL 0.00-0.03 H code = IG#) LYMPHOCYTE # (test code = LY#) 1.57 x10 3/uL 1.0-3.8 N MONOCYTE # (test code = MO#) 0.86 x10 3/uL 0.1-0.8 H EOSINOPHIL # (test code = EO#) 0.22 x10 3/uL 0.0-0.2 H BASOPHIL # (test code = BA#) 0.05 x10 3/uL 0.0-0.2 N NUCLEATED RBC # (test code = 0.00 x10 3/uL 0.0-0.1 N NRBC#) MANUAL DIFF REQUIRED (test code NO = MDIFF) BASIC METABOLIC [id number] 04:46:00 Test Item Value Reference Range Interpretation Comments SODIUM (test code = NA) 138 mEq/L 134-147 N POTASSIUM (test code = 3.7 mEq/L 3.4-5.0 N K) CHLORIDE (test code = 105 mEq/L 100-108 N CL) CARBON DIOXIDE (test 22 mEq/l 21-33 N code = CO2) ANION GAP (test code = 15 0-20 N GAP) GLUCOSE (test code = 111 mg/dL 70-110 H GLU) BLOOD UREA NITROGEN 19 mg/dL 7-18 H (test code = BUN) GLOMERULAR FILTRATION 18.0 80-90 L Units of measure = RATE (test code = GFR) ml/mi n/1.73 m2 CREATININE (test code = 2.7 mg/dL 0.6-1.3 H CREAT) CALCIUM (test code = 8.7 mg/dL 8.0-10.5 N CA) [id number] 04:46:00 Test Item Value Reference Range Interpretation Comments PHOSPHOROUS (test code = PHOS) 4.7 MG/DL 2.5-4.9 N [id number] 04:46:00 Test Item Value Reference Range Interpretation Comments MAGNESIUM (test code = MAG) 2.10 mg/dL 1.80-2.40 N - XR SHOULDER 1 V [id number] 15:34:00 [facility] 1960 Sex: F FAX: Arjun Saenz [phone] [place]: St: ADM Name: LAKSHMI BATES [facility] : 1960 Age/S: 60/F [address] [place] [address] Unit #: [id number] Loc: G.5509 [place] [address] Phys: Seamus Bower MD Acct: [id number] Dis Date: Status: ADM IN PHONE #: [phone] Exam Date: 05/12/2020 1340 FAX #: Reason: PICC PLACEMENT EXAMS: CPT CODE: [id number] XR SHOULDER 1 [place] [id number] PROCEDURE: Single view right shoulder INDICATION: 60-year-old female post PICC placement COMPARISON: Chest radiograph 05/09/2020 FINDINGS: Right upper extremity PICC noted terminating in the proximal SVC. Partially visualized left subclavian pacer leads. No acute osseous abnormality. Visualized right lung appears clear.IMPRESSION: 1. Right upper extremity PICC noted terminating in the proximal SVC. SL: [id number] at 1534 Reported and signed by: Chapito Cox M.D. CC: Arjun Marc DO Technologist: ANTHONY Cha) Trnscrd Date/Time/By: 05/12/2020 (3370) : By: [email or web address] Orig Print D/T: S: 05/12/2020 (1244) PAGE 1 Signed ReportBASIC METABOLIC [id number] 04:43:00 Test Item Value Reference Range Interpretation Comments SODIUM (test code = NA) 138 mEq/L 134-147 N POTASSIUM (test code = 3.7 mEq/L 3.4-5.0 N K) CHLORIDE (test code = 108 mEq/L 100-108 N CL) CARBON DIOXIDE (test 21 mEq/l 21-33 N code = CO2) ANION GAP (test code = 13 0-20 N GAP) GLUCOSE (test code = 115 mg/dL 70-110 H GLU) BLOOD UREA NITROGEN 17 mg/dL 7-18 N (test code = BUN) GLOMERULAR FILTRATION 19.6 80-90 L Units of measure = RATE (test code = GFR) ml/mi n/1.73 m2 CREATININE (test code = 2.5 mg/dL 0.6-1.3 H CREAT) CALCIUM (test code = 8.5 mg/dL 8.0-10.5 N CA) [id number] 04:43:00 Test Item Value Reference Range Interpretation Comments PHOSPHOROUS (test code = PHOS) 4.2 MG/DL 2.5-4.9 N [id number] 04:43:00 Test Item Value Reference Range Interpretation Comments MAGNESIUM (test code = MAG) 2.22 mg/dL 1.80-2.40 N - US RETROPERITONEAL [id number] 14:44:00 [facility]: LAKSHMI BATES : 1960 Sex: F Name:LAKSHMI BATES [facility] [place] : 1960 Age/S: 60 / F [address] [place] [address] Unit #: [id number] Loc: [facility] [id number] Phys: Mynor Hines MD Acct: [id number] Dis Date: Status: ADM IN PHONE #: [phone] Exam Date: 05/11/2020 1441 FAX #: [phone] Reason: ARF, ON VANC, SEPSIS, R/O ATN/INTERSTITIAL NEPH EXAMS: CPT CODE: [id number] [facility] COM [id number] PROCEDURE: RENAL ULTRASOUND CHRIST CATION: Acute renal failure COMPARISON: CT abdomen pelvis 05/07/2020 TECHNIQUE: Sonographic evaluation of the kidneys and urinary bladder was performed. FINDINGS: KIDNEYS: The right kidney measures 11.1 cm in length. Normal contour and parenchymal echogenicity. There is no hydronephrosis, nephrolithiasis, mass lesion or perinephric collection. 3.5 cm echogenic mass above the upper pole right kidney compatible with myelolipoma of the adrenal gland noted on recent CT The left kidney measures 12.2 cm in length. Normal contour and parenchymal echogenicity. There is no hydronephrosis, nephrolithiasis, mass lesion or perinephric collection. BLADDER: Not visualized due to patient condition VASCULATURE: The visualized aorta, common iliac arteries and IVC are unremarkable. IMPRESSION: 1. Normal evaluationof kidneys. 2. 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 PAGE 1 Signed Report (CONTINUED) Name: LAKSHMI BATES [facility] [place] : 1960 Age/S: 60 / F [address] [place] [address] Unit #: [id number] Loc: [place] [address] Phys: Mynor Hines MD Acct: [id number] Dis Date: Status: ADM IN PHONE #: [phone] Exam Date: 05/11/2020 1441 FAX #: [phone] Reason: ARF, ON VANC, SEPSIS, R/O ATN/INTERSTITIAL NEPH EXAMS: CPT CODE: [id number] [facility] [address] (Continued) CC: Arjun Marc DO; Mynor Hines MD Technologist: Shahnaz De RDMS(Nora)(BR) Trnscb Date/Time:05/11/2020 (1444) PreetG Orig Print D/T: S: 05/11/2020 (2170) Probe: PAGE 2 Signed ReportBASIC METABOLIC [id number] 07:55:00 Test Item Value Reference Range Interpretation Comments SODIUM (test code = NA) 136 mEq/L 134-147 N POTASSIUM (test code = 3.9 mEq/L 3.4-5.0 N K) CHLORIDE (test code = 106 mEq/L 100-108 N CL) CARBON DIOXIDE (test 22 mEq/l 21-33 N code = CO2) ANION GAP (test code = 12 0-20 N GAP) GLUCOSE (test code = 116 mg/dL 70-110 H GLU) BLOOD UREA NITROGEN 15 mg/dL 7-18 N (test code = BUN) GLOMERULAR FILTRATION 21.6 80-90 L Units of measure = RATE (test code = GFR) ml/mi n/1.73 m2 CREATININE (test code = 2.3 mg/dL 0.6-1.3 H CREAT) CALCIUM (test code = 9.6 mg/dL 8.0-10.5 N CA) [id number] 07:55:00 Test Item Value Reference Range Interpretation Comments PHOSPHOROUS (test code = PHOS) 4.2 MG/DL 2.5-4.9 N [id number] 07:55:00 Test Item Value Reference Range Interpretation Comments MAGNESIUM (test code = MAG) 2.29 mg/dL 1.80-2.40 N TOTAL IRON BINDING [id number] 21:04:00 Test Item Value Reference Range Interpretation Comments SERUM IRON (test code = IRON) 25 mcg/dL 35-150 L TOTAL IRON BINDING CAPACITY (test 220 mcg/dL 260-445 L code = TIBC) UIBC (test code = UIBC) 195 mcg/dL IRON SATURATION (test code = 11.4 % 14-34 L FESAT) VITAMIN [id number] 21:04:00 Test Item Value Reference Range Interpretation Comments VITAMIN B12 (test code = VITB12) 3984 pg/mL 193-986 H [id number] 21:04:00 Test Item Value Reference Range Interpretation Comments VANCOMYCIN (test code = VANCO) 28.2 mcg/mL [id number] 21:04:00 Test Item Value Reference Range Interpretation Comments FERRITIN (test code = TEDDY) 92.0 ng/mL 11.0-306.8 N URINALYSIS [id number] 20:45:00 Test Item Value Reference Range Interpretation Comments UA COLOR (test code = COLU) STRAW YEL/STRAW UA APPEARANCE (test code = APPU) CLEAR CLEAR UA GLUCOSE DIPSTICK (test code = NEGATIVE NEGATIVE DGLUU) UA BILIRUBIN DIPSTICK (test code NEGATIVE NEGATIVE = BILU) UA KETONE DIPSTICK (test code = NEGATIVE NEGATIVE KETU) UA SPECIFIC GRAVITY (test code = 1.002 1.005-1.030 L SGU) UA BLOOD DIPSTICK (test code = NEGATIVE NEGATIVE ZAC) UA PH DIPSTICK (test code = AYO) 6.0 5.0-7.0 N UA PROTEIN DIPSTICK (test code = NEGATIVE NEGATIVE PROU) UA UROBILINIOGEN DIPSTICK (test 0.2 mg/dL 0.2-1.0 code = URO) UA NITRITE DIPSTICK (test code = NEGATIVE NEGATIVE LESLIE) UA LEUKOCYTE ESTERASE DIPSTICK NEGATIVE NEGATIVE (test code = LEUU) UA RBC (test code = RBCU) 0-3 RBC/HPF 0-3 UA WBC NO REFLEX (test code = 0-3 WBC/HPF 0-3 WBCUCL) UA BACTERIA (test code = BACU) TRACE /HPF NONE SEEN UA SQUAMOUS CELLS (test code = 0-5 /HPF NONE SEEN SQU) UR SODIUM [id number] 20:45:00 Test Item Value Reference Range Interpretation Comments UR SODIUM RANDOM 12 MEQ/L The Referen ce Range and (test code = BRIANNA) Method Per formance specificationsh ave not been established for this fluid. The test result should be correlated into the clinical context forinte rpretation. URINALYSIS [id number] 20:42:00 Test Item Value Reference Range Interpretation Comments UA COLOR (test code = COLU) YEL/STRAW UA APPEARANCE (test code = APPU) CLEAR UA GLUCOSE DIPSTICK (test code = NEGATIVE DGLUU) UA BILIRUBIN DIPSTICK (test code = NEGATIVE BILU) UA KETONE DIPSTICK (test code = NEGATIVE KETU) UA SPECIFIC GRAVITY (test code = 1.005-1.030 SGU) UA BLOOD DIPSTICK (test code = ZAC) NEGATIVE UA PH DIPSTICK (test code = AYO) 5.0-7.0 UA PROTEIN DIPSTICK (test code = NEGATIVE PROU) UA UROBILINIOGEN DIPSTICK (test code mg/dL 0.2-1.0 = URO) UA NITRITE DIPSTICK (test code = NEGATIVE LESLIE) UA LEUKOCYTE ESTERASE DIPSTICK (test NEGATIVE code = LEUU) UA RBC (test code = RBCU) RBC/HPF 0-3 UR SODIUM [id number] 20:42:00 Test Item Value Reference Range Interpretation Comments UR SODIUM RANDOM 12 MEQ/L The Referen ce Range and (test code = BRIANNA) Method Per formance specificationsh ave not been established for this fluid. The test result should be correlated into the clinical context forinte rpretation. UR PROTEIN [id number] 19:49:00 Test Item Value Reference Range Interpretation Comments UR PROTEIN RANDOM 16 mg/dL No te: Change in (test code = UNITS of MEASUR EMENT. PROTU) The Reference R jordana and Method Performa nce specificationsh ave not been established for this fluid. The test result should be correlated into the clinical context forinte rpretation. UR CREATININE [id number] 19:49:00 Test Item Value Reference Range Interpretation Comments UR CREATININE 19.8 mg/dL The Reference Range and RANDOM (test code Method Per formance = CREATU) specificationsh ave not been establishe d for this fluid. The test resultshould be correlated into the clinical contex t forinterpretati on. BASIC METABOLIC [id number] 09:49:00 Test Item Value Reference Range Interpretation Comments SODIUM (test code = NA) 134 mEq/L 134-147 N POTASSIUM (test code = 3.8 mEq/L 3.4-5.0 N K) CHLORIDE (test code = 104 mEq/L 100-108 N CL) CARBON DIOXIDE (test 22 mEq/l 21-33 N code = CO2) ANION GAP (test code = 12 0-20 N GAP) GLUCOSE (test code = 159 mg/dL 70-110 H GLU) BLOOD UREA NITROGEN 12 mg/dL 7-18 N (test code = BUN) GLOMERULAR FILTRATION 30.7 80-90 L Units of measure = RATE (test code = GFR) ml/mi n/1.73 m2 CREATININE (test code = 1.7 mg/dL 0.6-1.3 H CREAT) CALCIUM (test code = 8.5 mg/dL 8.0-10.5 N CA) BASIC METABOLIC [id number] 08:05:00 Test Item Value Reference Range Interpretation Comments SODIUM (test code = NA) 134 mEq/L 134-147 N POTASSIUM (test code = 4.0 mEq/L 3.4-5.0 N K) CHLORIDE (test code = 105 mEq/L 100-108 N CL) CARBON DIOXIDE (test 22 mEq/l 21-33 N code = CO2) ANION GAP (test code = 11 0-20 N GAP) GLUCOSE (test code = 139 mg/dL 70-110 H GLU) BLOOD UREA NITROGEN 12 mg/dL 7-18 (test code = BUN) GLOMERULAR FILTRATION 32.9 80-90 L Units of measure = RATE (test code = GFR) ml/mi n/1.73 m2 CREATININE (test code = 1.6 mg/dL 0.6-1.3 H CREAT) CALCIUM (test code = 8.9 mg/dL 8.0-10.5 N CA) CBC W/AUTO [id number] 07:51:00 Test Item Value Reference Range Interpretation Comments WHITE BLOOD CELL (test code = 16.4 x10 3/uL 4.5-11.0 H WBC) RED BLOOD CELL (test code = 2.73 x10 6/uL 3.54-5.02 L RBC) HEMOGLOBIN (test code = HGB) 7.5 g/dL 11.0-15.0 L HEMATOCRIT (test code = HCT) 24.5 % 33.0-45.0 L MEAN CELL VOLUME (test code = 89.7 fL 81.0-99.0 N MCV) MEAN CELL HGB (test code = 27.5 pg 27.0-33.0 N MCH) MEAN CELL HGB CONCETRATION 30.6 g/dL 33.0-37.0 L (test code = MCHC) RED CELL DISTRIBUTION WIDTH CV 14.6 % 11.5-14.5 H (test code = RDW) RED CELL DISTRIBUTION WIDTH SD 46.8 fL 37.0-54.0 N (test code = RDW-SD) PLATELET COUNT (test code = 508 x10 3/uL 150-400 H PLT) MEAN PLATELET VOLUME (test 9.7 fL 7.0-9.0 H code = MPV) NEUTROPHIL % (test code = NT%) 86.5 % 56.0-77.0 H IMMATURE GRANULOCYTE % (test 2.0 % 0.0-2.0 N code = IG%) LYMPHOCYTE % (test code = LY%) 6.9 % 14.0-32.0 L MONOCYTE % (test code = MO%) 4.4 % 4.8-9.0 L EOSINOPHIL % (test code = EO%) 0.1 % 0.3-3.7 L BASOPHIL % (test code = BA%) 0.1 % 0.0-2.0 N NUCLEATED RBC % (test code = 0.0 % 0-0 N NRBC%) NEUTROPHIL # (test code = NT#) 14.21 x10 3/uL 2.0-7.6 H IMMATURE GRANULOCYTE # (test 0.33 x10 3/uL 0.00-0.03 H code = IG#) LYMPHOCYTE # (test code = LY#) 1.14 x10 3/uL 1.0-3.8 N MONOCYTE # (test code = MO#) 0.73 x10 3/uL 0.1-0.8 N EOSINOPHIL # (test code = EO#) 0.01 x10 3/uL 0.0-0.2 N BASOPHIL # (test code = BA#) 0.02 x10 3/uL 0.0-0.2 N NUCLEATED RBC # (test code = 0.00 x10 3/uL 0.0-0.1 N NRBC#) MANUAL DIFF REQUIRED (test NO code = MDIFF) - XR CHEST 1 [id number] 11:11:00 [facility] 1960 Sex: F FAX: Arjun Saenz [phone] [place]: St: ADM FAX: Ana Arguello [phone] -------- Name: LAKSHMI BATES [facility] : 1960 Age/S: 60/F [address] [place] [address] Unit #: [id number] Loc: G.[id number] [facility] [id number] Phys: Ana Coates MD Acct: [id number] Dis Date: Status: ADM IN PHONE #: [phone] Exam Date: 05/09/2020 1108 FAX #: [phone] Reason: PREOP PROTOCOL EXAMS: CPT CODE: [id number] XR CHEST 1 V 49956 Study: - XR CHEST 1 V 05/09/2020 10:42 AM Patient Name: LAKSHMI BATES MR: [id number] : 1960; Age: 60 years y/o Female Ordering Physician: Ana Coates MD Clinical Indication: PREOP PROTOCOL Comparison: January 29, 2014 x-ray FINDINGS LUNGS: The lungs are clear of consolidation, pleural effusion, and pneumothorax. Bibasilar linear atelectasis. HEART AND MEDIASTINUM: Heart size at the upper limits of normal with a left subclavian pacemaker. LINES: None. OSSEOUS STRUCTURES: No fracture, dislocation, or suspicious focal osseous lesion. OTHER: None. IMPRESSION: No acute abnormality as above discussed. SL: [id number] at 1111 Reported and signed by: Francesco Lowe M.D. CC: Arjun Marc DO; Ana Coates MD Technologist: Carolyn Ferreira RT(R) Trnscrd Date/Time/By: 05/09/2020 (1111) : By: [email or web address] Orig Print D/T: S: 05/09/2020 (1119) PAGE 1 Signed ReportBASIC METABOLIC PANEL 2020-05-09 07:23:00 Test Item Value Reference Range Interpretation Comments SODIUM (test code = NA) 134 mEq/L 134-147 N POTASSIUM (test code = 3.6 mEq/L 3.4-5.0 N K) CHLORIDE (test code = 105 mEq/L 100-108 N CL) CARBON DIOXIDE (test 23 mEq/l 21-33 N code = CO2) ANION GAP (test code = 10 0-20 N GAP) GLUCOSE (test code = 118 mg/dL 70-110 H GLU) BLOOD UREA NITROGEN 8 mg/dL 7-18 N (test code = BUN) GLOMERULAR FILTRATION 85.4 80-90 N Units of measure = RATE (test code = GFR) ml/mi n/1.73 m2 CREATININE (test code = 0.7 mg/dL 0.6-1.3 CREAT) CALCIUM (test code = 8.5 mg/dL 8.0-10.5 N CA) CBC W/AUTO [id number] 07:13:00 Test Item Value Reference Range Interpretation Comments WHITE BLOOD CELL (test code = 12.8 x10 3/uL 4.5-11.0 H WBC) RED BLOOD CELL (test code = 2.67 x10 6/uL 3.54-5.02 L RBC) HEMOGLOBIN (test code = HGB) 7.5 g/dL 11.0-15.0 L HEMATOCRIT (test code = HCT) 24.5 % 33.0-45.0 L MEAN CELL VOLUME (test code = 91.8 fL 81.0-99.0 N MCV) MEAN CELL HGB (test code = MCH) 28.1 pg 27.0-33.0 N MEAN CELL HGB CONCETRATION 30.6 g/dL 33.0-37.0 L (test code = MCHC) RED CELL DISTRIBUTION WIDTH CV 14.6 % 11.5-14.5 H (test code = RDW) RED CELL DISTRIBUTION WIDTH SD 49.0 fL 37.0-54.0 N (test code = RDW-SD) PLATELET COUNT (test code = 541 x10 3/uL 150-400 H PLT) MEAN PLATELET VOLUME (test code 9.8 fL 7.0-9.0 H = MPV) NEUTROPHIL % (test code = NT%) 77.9 % 56.0-77.0 H IMMATURE GRANULOCYTE % (test 1.4 % 0.0-2.0 N code = IG%) LYMPHOCYTE % (test code = LY%) 10.6 % 14.0-32.0 L MONOCYTE % (test code = MO%) 8.5 % 4.8-9.0 N EOSINOPHIL % (test code = EO%) 1.3 % 0.3-3.7 N BASOPHIL % (test code = BA%) 0.3 % 0.0-2.0 N NUCLEATED RBC % (test code = 0.0 % 0-0 N NRBC%) NEUTROPHIL # (test code = NT#) 9.97 x10 3/uL 2.0-7.6 H IMMATURE GRANULOCYTE # (test 0.18 x10 3/uL 0.00-0.03 H code = IG#) LYMPHOCYTE # (test code = LY#) 1.36 x10 3/uL 1.0-3.8 N MONOCYTE # (test code = MO#) 1.09 x10 3/uL 0.1-0.8 H EOSINOPHIL # (test code = EO#) 0.16 x10 3/uL 0.0-0.2 N BASOPHIL # (test code = BA#) 0.04 x10 3/uL 0.0-0.2 N NUCLEATED RBC # (test code = 0.00 x10 3/uL 0.0-0.1 N NRBC#) MANUAL DIFF REQUIRED (test code NO = MDIFF) COVID 19 Asymptomatic IH [id number] 02:31:00 Test Item Value Reference Range Interpretation Comments COVID 19 Asymptomatic Negative Negative A nega tive result is IH AG (test code = presumpti ve and should COVNONPUIAG) be confirmedwit h an FDA authorized mole cular assay, if venu hodges forpatient khadar ash.A positive result does not rule out co-inf ections withother patho gens.This test detects tegan th viable (live) and non-viable,SARS -CoV, and SARS-CoV-2. Zuleika t performance dep ends on theamount of vi teresa (antigen) in th e sample.This zuleika t has not been FDA cleare d or approved; the t est hasbeen authori zed by FDA under an Em ergency Use Authorizati on(EUA) for use by labo ratories certified under the CLIA thatmeet the requirements to perform moderate, high or waivedcomplexit y tests. COMMENTS: If not done this admissionBASIC METABOLIC [id number] 12:07:00 Test Item Value Reference Range Interpretation Comments SODIUM (test code = NA) 134 mEq/L 134-147 N POTASSIUM (test code = 3.7 mEq/L 3.4-5.0 N K) CHLORIDE (test code = 104 mEq/L 100-108 N CL) CARBON DIOXIDE (test 24 mEq/l 21-33 N code = CO2) ANION GAP (test code = 10 0-20 N GAP) GLUCOSE (test code = 102 mg/dL 70-110 N GLU) BLOOD UREA NITROGEN 8 mg/dL 7-18 N (test code = BUN) GLOMERULAR FILTRATION 125.9 80-90 H Units of measure = RATE (test code = GFR) ml/mi n/1.73 m2 CREATININE (test code = 0.5 mg/dL 0.6-1.3 L CREAT) CALCIUM (test code = 8.8 mg/dL 8.0-10.5 N CA) [id number] 12:07:00 Test Item Value Reference Range Interpretation Comments PHOSPHOROUS (test code = PHOS) 3.4 MG/DL 2.5-4.9 N [id number] 12:07:00 Test Item Value Reference Range Interpretation Comments MAGNESIUM (test code = MAG) 2.15 mg/dL 1.80-2.40 N CBC W/AUTO [id number] 11:39:00 Test Item Value Reference Range Interpretation Comments WHITE BLOOD CELL (test code = 15.7 x10 3/uL 4.5-11.0 H WBC) RED BLOOD CELL (test code = 3.23 x10 6/uL 3.54-5.02 L RBC) HEMOGLOBIN (test code = HGB) 9.0 g/dL 11.0-15.0 L HEMATOCRIT (test code = HCT) 29.4 % 33.0-45.0 L MEAN CELL VOLUME (test code = 91.0 fL 81.0-99.0 N MCV) MEAN CELL HGB (test code = 27.9 pg 27.0-33.0 N MCH) MEAN CELL HGB CONCETRATION 30.6 g/dL 33.0-37.0 L (test code = MCHC) RED CELL DISTRIBUTION WIDTH CV 14.2 % 11.5-14.5 N (test code = RDW) RED CELL DISTRIBUTION WIDTH SD 47.7 fL 37.0-54.0 N (test code = RDW-SD) PLATELET COUNT (test code = 608 x10 3/uL 150-400 H PLT) MEAN PLATELET VOLUME (test 9.3 fL 7.0-9.0 H code = MPV) NEUTROPHIL % (test code = NT%) 75.3 % 56.0-77.0 N IMMATURE GRANULOCYTE % (test 1.1 % 0.0-2.0 N code = IG%) LYMPHOCYTE % (test code = LY%) 13.9 % 14.0-32.0 L MONOCYTE % (test code = MO%) 7.9 % 4.8-9.0 N EOSINOPHIL % (test code = EO%) 1.5 % 0.3-3.7 N BASOPHIL % (test code = BA%) 0.3 % 0.0-2.0 N NUCLEATED RBC % (test code = 0.0 % 0-0 N NRBC%) NEUTROPHIL # (test code = NT#) 11.85 x10 3/uL 2.0-7.6 H IMMATURE GRANULOCYTE # (test 0.18 x10 3/uL 0.00-0.03 H code = IG#) LYMPHOCYTE # (test code = LY#) 2.18 x10 3/uL 1.0-3.8 N MONOCYTE # (test code = MO#) 1.24 x10 3/uL 0.1-0.8 H EOSINOPHIL # (test code = EO#) 0.24 x10 3/uL 0.0-0.2 H BASOPHIL # (test code = BA#) 0.05 x10 3/uL 0.0-0.2 N NUCLEATED RBC # (test code = 0.00 x10 3/uL 0.0-0.1 N NRBC#) MANUAL DIFF REQUIRED (test NO code = MDIFF) SARS-CoV-2 (COVID-19) RNA [Presence] in Respiratory specimen by DEZ with probe [id number] 13:26:06 Test Item Value Reference Range Interpretation Comments SARS-CoV-2 (COVID-19) RNA Not detected Not-Detected [Presence] in Respiratory specimen by DEZ with probe detection (test code = 50123-2) [facility] Notes Date/Time Note Provider Source 2020-05-16 19:15:00-00:00 [facility] ([facility]) Infectious Dis. Progress Note REPORT#:[id number] REPORT STATUS: Signed DATE:05/16/20 TIME: 1914 PATIENT: LAKSHMI BATES UNIT #: [id number] ROOM/BED: [place] [address] : 60 AGE: 60 SEX: F ATTEND: Wan Marc DO ADM AUTHOR: Ceci Irby MD * ALL edits or amendments must be made on the [employer]/computer document * Subjective Chief Complaint: F/U abdominal cellulitis Patient reports: No: bowel movement, cough, diarrhea, feeling bet ter, fever, headache. Comments: Late entry Portions of this section were scribed by Janis Sharpe on 05/16/20 at 1915 Objective General VS/I O: Last Documented: Result Date Time Pulse Ox 96 05/16 1608 B/P 144/78 05/16 1608 B/P Mean 100.3 05/16 1608 Temp 36.6 05/16 1608 Pulse 59 05/16 1608 Resp 16 05/16 1608 O2 Delivery Room air 05/16 0359 FiO2 21 05/09 2314 O2 Flow Rate 9 05/09 1237 Vital Signs Date Temp Pulse Resp B/P B/P Mean Pulse Ox FiO2 05/15-05/16 36.6-37.1 53-63 16 126-147/68-78 91 .7-100.3 95-97 24 hour I O ending at 00: 05/16 0700 05/15 1900 Intake Total 200.00 500.00 Output Total Balance 200.00 500.00 Intake, IV 200.00 100.00 Intake, Oral 400 Number 2 Bowel Movements Number Voids 1 5 PATIENT WEIGHT: Weight (lb): 186 Weight (oz): 15.23 Weight (kg): 84.800 Physical Exam General appearance: alert, awake, oriented Wound/incision: Location: abdominal surgical incision right lower abdomen surigcal incision +draining , packing in place mid lower abdominal surgical incision Head/Eyes: atraumatic, clear cornea, EOMI, mohsen l conjunctiva/sclera, normal eyelids/periorb, normocephalic, PERRL ENT: normal dentition, normal nose, normal phary nx, normal sinus Neck: full range of motion, non-tender, normal thyroid, supple/no meningismus, no bruit/NL carotids, no JVD, no masses or swell ing, no lymphadenopathy Cardiovascular: regular rate rhythm Respiratory: clear to auscultation, no distress Abdomen: non-tender, soft, n o distention, no guarding, no mass/organomegaly, no rebound Extremities: moves all, normal capillary refill, normal sensory Musculoskeletal: full range of motion Considered stroke alert: no Skin: dry, intact Results Findings/Data: Laboratory Tests 05/16 0520 Chemistry Sodium (134 - 147 mEq/L) 139 Potassium (3.4 - 5.0 mEq/L) 3.5 Chloride (100 - 108 mEq/L) 104 Carbon Dioxide (21 - 33 mEq/l) 26 Anion Gap (0 - 20) 13 BUN (7 - 18 mg/dL) 17 Creatinine (0.6 - 1.3 mg/dL) 2.4 H Glomerular Filtr Rate (80 - 90) 20.6 L Glucose (70 - 110 mg/dL) 102 Calcium (8.0 - 10.5 mg/dL) 9.5 Phosphorus (2.5 - 4.9 MG/DL) 4.4 Magnesium (1.80 - 2.40 mg/dL) 2.27 Laboratory Tests 05/16 0520 Hematology WBC (4.5 - 11.0 x10 3/uL) 7.5 RBC (3.54 - 5.02 x10 6/uL) 3.09 L Hgb (11.0 - 15.0 g/dL) 8.5 L Hct (33.0 - 45.0 %) 27.6 L MCV (81.0 - 99.0 fL) 89.3 MCH (27.0 - 33.0 pg) 27.5 MCHC (33.0 - 37.0 g/dL) 30.8 L RDW (11.5 - 14.5 %) 14.6 H Plt Count (150 - 400 x10 3/uL) 528 H MPV (7.0 - 9.0 fL) 9.4 H Neut % (Auto) (56.0 - 77.0 %) 65.9 Lymph % (Auto) (14.0 - 32.0 %) 19.9 [place] % (Auto) (4.8 - 9.0 %) 8.9 Eos % (Auto) (0.3 - 3.7 %) 2.9 Baso % (Auto) (0.0 - 2.0 %) 0.7 Neut # (Auto) (2.0 - 7.6 x10 3/uL) 4.95 Lymph # (Auto) (1.0 - 3.8 x10 3/uL) 1.50 [place] # (Auto) (0.1 - 0.8 x10 3/uL) 0.67 Eos # (Auto) (0.0 - 0.2 x10 3/uL) 0.22 H Baso # (Auto) (0.0 - 0.2 x10 3/uL) 0.05 Abs Immat Gran (auto) (0.00 - 0.03 x10 3/uL) 0. 13 H Add Manual Diff NO Immature Gran % (0.0 - 2.0 %) 1.7 Nucleated RBC % (0 - 0 %) 0.0 Nucleated RBCs # (Man) (0.0 - 0.1 x10 3/uL) 0.0 0 Active Meds + DC'd Last 24 Hrs Enoxaparin Sodium 30 MG Q24H SUBQ (DCD) Hydrocodone Bitart/Acetaminophen 1 TAB Q4H PRN P RN PO (DCD) Piperacillin Sod/Tazobactam Sod 3.375 GM Q8H IV (DCD) Sodium Chloride 100 ML Amlodipine Besylate 10 MG DAILY PO (DCD) Nystatin 1 APPLIC BID TOPICAL (DCD) Sodium Chloride 10 ML BID IV (DCD) Sodium Chloride 10 ML ASDIR PRN IV (DCD) Ondansetron HCl 4 MG Q6H PRN PRN IV (DCD) Sodium Chloride 10 ML ASDIR IV (DCD) Progesterone 200 MG BEDTIME PO (DCD) Enoxaparin Sodium 40 MG Q24H SUBQ (DC) Al Hydrox/Mg Hydrox/Simethicone 30 ML Q4H PRN MD N PO (DCD) Docusate Sodium 100 MG BID PRN PRN PO (DCD) Hydralazine HCl 10 MG Q6H PRN PRN IV (DCD) Ondansetron HCl 4 MG Q4H PRN PRN IV (DCD) Portions of this section were scribed by Janis Sharpe on 05/16/20 at 1915 Diagnosis, Assessment Plan Problem List/A P: 1. Sepsis 2. Abdominal abscess 3. Cellulitis, abdominal wall Free Text A P: 1. Sepsis sec to abdominal abscess 2. 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 S/p recent abdominoplasty 4. Darian 5. Leukocytosis Portions of this section were scribed by Janis Sharpe on 05/16/20 at 1915 Electronically Signed by Ceci Irby MD on at 1027 RPT #:[id number] END OF REPORT 2020-05-16 13:00:00-00:00 [facility] Progress Note REPORT#:[id number] REPORT STATUS: Signed DATE:05/16/20 TIME: 1300 PATIENT: LAKSHMI BATES UNIT #: [id number] ROOM/BED: [place] [address] : 60 AGE: 60 SEX: F ATTEND: Wan Marc DO ADM AUTHOR: Sidra Melendez RP * ALL edits or amendments must be made on the [employer] document * Pharmacy Note Current therapy: 40mg SQ Q24hr Vital signs: Vital Signs Date Temp Pulse Resp B/P B/P Mean Pulse Ox FiO2 05/13-05/16 97.9-99.1 53-65 16-20 121-169/64-82 0.0-110.8 94-97 Labs: Laboratory Tests: 05/16 05/15 05/14 0520 0510 0440 Chemistry BUN (7 - 18 mg/dL) 17 19 H 20 H Creatinine (0.6 - 1.3 mg/dL) 2.4 H 2.2 H 2.4 H Treatment plan: change regimen Regimen: Adjust to enoxaparin 30mg SQ Q24hr per p rotocol for CrCl < 30 mL/min and BMI < 40 kg/m2 at [address] [facility] #:[id number] END OF REPORT 2020-05-16 07:57:00-00:00 [facility]ph[facility] Progress Note REPORT#:[id number] REPORT STATUS: Signed DATE:05/16/20 TIME: 0757 PATIENT: LAKSHMI BATES UNIT #: [id number] ROOM/BED: [address] : 60 AGE: 60 SEX: F ATTEND: Wan Marc DO ADM AUTHOR: Jonatan Virk MD * ALL edits or amendments must be made on the [employer] document * Subjective Chief Complaint: Abdominal wall abscess/DARIAN Patient reports: No: complaints. Comments: Patient seen evaluate, HPI no change from initia l, feels okay Review of Systems Constitutional: Yes chills, Yes fever Skin: Yes swelling Allergy/Immun: No hives, No itching Eyes: No redness, No discharge ENT: No ear drainage, No ear ringing Respiratory: No hemoptysis, No SOB Cardiovascular: No chest pain, No palpitations Objective General VS/I O: Vital Signs: Date Time Temp Pulse Resp B/P B/P Pulse O2 O2 F low FiO2 Mean Ox Delivery Rate 05/16 0732 36.9 60 16 137/78 97.4 96 05/16 0359 36.9 53 16 147/68 94.5 97 Room air 05/15 2350 36.7 63 16 126/74 91.7 95 Room air 05/15 1940 37.1 59 16 130/73 91.7 96 Room air 05/15 1455 37.0 61 20 133/77 96.0 96 05/15 1120 36.9 61 20 125/64 84.2 97 24 hour I O ending at 0700: 05/16 0700 05/15 1900 Intake Total 200.00 500.00 Output Total Balance 200.00 500.00 Intake, IV 200.00 100.00 Intake, Oral 400 Number 2 Bowel Movements Number Voids 1 5 Medications Active Meds + DC'd Last 24 Hrs Hydrocodone Bitart/Acetaminophen 1 TAB Q4H PRN P RN PO Piperacillin Sod/Tazobactam Sod 3.375 GM Q8H IV Sodium Chloride 100 ML Amlodipine Besylate 10 MG DAILY PO Nystatin 1 APPLIC BID TOPICAL Sodium Chloride 10 ML BID IV Sodium Chloride 10 ML ASDIR PRN IV Ondansetron HCl 4 MG Q6H PRN PRN IV Sodium Chloride 10 ML ASDIR IV Progesterone 200 MG BEDTIME PO Enoxaparin Sodium 40 MG Q24H SUBQ Al Hydrox/Mg Hydrox/Simethicone 30 ML Q4H PRN MD N PO Docusate Sodium 100 MG BID PRN PRN PO Hydralazine HCl 10 MG Q6H PRN PRN IV Ondansetron HCl 4 MG Q4H PRN PRN IV Physical Exam General appearance: alert, no acute distress Head/eyes: atraumatic, normocephalic ENT: normal nose Neck: supple/no meningismus Cardiovascular: normal heart sounds, no rub Respiratory: aerating well, no distress Abdomen: soft Genitourinary: no flank pain Extremities: pitting edema, non-tender Musculoskeletal: no CVA tenderness, no tenderene ss 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, normal speech Skin: dry, intact Results Findings/Data: Laboratory Tests 05/16 05/15 05/14 0520 0510 0440 Chemistry Sodium (134 - 147 mEq/L) 139 138 137 Potassium (3.4 - 5.0 mEq/L) 3.5 3.6 3.1 L Chloride (100 - 108 mEq/L) 104 103 101 Carbon Dioxide (21 - 33 mEq/l) 26 26 26 Anion Gap (0 - 20) 13 13 13 BUN (7 - 18 mg/dL) 17 19 H 20 H Creatinine (0.6 - 1.3 mg/dL) 2.4 H 2.2 H 2.4 H Glomerular Filtr Rate (80 - 90) 20.6 L 22.8 L 2 0.6 L Glucose (70 - 110 mg/dL) 102 161 H 90 Calcium (8.0 - 10.5 mg/dL) 9.5 9.2 8.8 Phosphorus (2.5 - 4.9 MG/DL) 4.4 4.7 Magnesium (1.80 - 2.40 mg/dL) 2.27 2.04 Laboratory Tests 05/16 05/15 05/14 0520 0510 0440 Hematology WBC (4.5 - 11.0 x10 3/uL) 7.5 10.6 12.8 H RBC (3.54 - 5.02 x10 6/uL) 3.09 L 3.06 L 2.74 L Hgb (11.0 - 15.0 g/dL) 8.5 L 8.4 L 7.6 L Hct (33.0 - 45.0 %) 27.6 L 27.4 L 24.4 L MCV (81.0 - 99.0 fL) 89.3 89.5 89.1 MCH (27.0 - 33.0 pg) 27.5 27.5 27.7 MCHC (33.0 - 37.0 g/dL) 30.8 L 30.7 L 31.1 L RDW (11.5 - 14.5 %) 14.6 H 14.4 14.6 H Plt Count (150 - 400 x10 3/uL) 528 H 537 H 492 H MPV (7.0 - 9.0 fL) 9.4 H 9.4 H 9.6 H Neut % (Auto) (56.0 - 77.0 %) 65.9 74.9 77.1 H Lymph % (Auto) (14.0 - 32.0 %) 19.9 14.8 12.3 L [place] % (Auto) (4.8 - 9.0 %) 8.9 5.9 6.7 Eos % (Auto) (0.3 - 3.7 %) 2.9 1.9 1.7 Baso % (Auto) (0.0 - 2.0 %) 0.7 0.5 0.4 Neut # (Auto) (2.0 - 7.6 x10 3/uL) 4.95 7.93 H 9.82 H Lymph # (Auto) (1.0 - 3.8 x10 3/uL) 1.50 1.56 1 .57 [place] # (Auto) (0.1 - 0.8 x10 3/uL) 0.67 0.62 0. 86 H Eos # (Auto) (0.0 - 0.2 x10 3/uL) 0.22 H 0.20 0 .22 H Baso # (Auto) (0.0 - 0.2 x10 3/uL) 0.05 0.05 0. 05 Abs Immat Gran (auto) (0.00 - 0.03 x10 3/uL) 0. 13 H 0.21 H 0.23 H Add Manual Diff NO NO NO Immature Gran % (0.0 - 2.0 %) 1.7 2.0 1.8 Nucleated RBC % (0 - 0 %) 0.0 0.0 0.0 Nucleated RBCs # (Man) (0.0 - 0.1 x10 3/uL) 0.0 0 0.00 0.00 Laboratory Tests 05/16 0520 Chemistry Sodium (134 - 147 mEq/L) 139 Potassium (3.4 - 5.0 mEq/L) 3.5 Chloride (100 - 108 mEq/L) 104 Carbon Dioxide (21 - 33 mEq/l) 26 Anion Gap (0 - 20) 13 BUN (7 - 18 mg/dL) 17 Creatinine (0.6 - 1.3 mg/dL) 2.4 H Glomerular Filtr Rate (80 - 90) 20.6 L Glucose (70 - 110 mg/dL) 102 Calcium (8.0 - 10.5 mg/dL) 9.5 Phosphorus (2.5 - 4.9 MG/DL) 4.4 Magnesium (1.80 - 2.40 mg/dL) 2.27 Laboratory Tests 05/16 0520 Hematology WBC (4.5 - 11.0 x10 3/uL) 7.5 RBC (3.54 - 5.02 x10 6/uL) 3.09 L Hgb (11.0 - 15.0 g/dL) 8.5 L Hct (33.0 - 45.0 %) 27.6 L MCV (81.0 - 99.0 fL) 89.3 MCH (27.0 - 33.0 pg) 27.5 MCHC (33.0 - 37.0 g/dL) 30.8 L RDW (11.5 - 14.5 %) 14.6 H Plt Count (150 - 400 x10 3/uL) 528 H MPV (7.0 - 9.0 fL) 9.4 H Neut % (Auto) (56.0 - 77.0 %) 65.9 Lymph % (Auto) (14.0 - 32.0 %) 19.9 [place] % (Auto) (4.8 - 9.0 %) 8.9 Eos % (Auto) (0.3 - 3.7 %) 2.9 Baso % (Auto) (0.0 - 2.0 %) 0.7 Neut # (Auto) (2.0 - 7.6 x10 3/uL) 4.95 Lymph # (Auto) (1.0 - 3.8 x10 3/uL) 1.50 [place] # (Auto) (0.1 - 0.8 x10 3/uL) 0.67 Eos # (Auto) (0.0 - 0.2 x10 3/uL) 0.22 H Baso # (Auto) (0.0 - 0.2 x10 3/uL) 0.05 Abs Immat Gran (auto) (0.00 - 0.03 x10 3/uL) 0. 13 H Add Manual Diff NO Immature Gran % (0.0 - 2.0 %) 1.7 Nucleated RBC % (0 - 0 %) 0.0 Nucleated RBCs # (Man) (0.0 - 0.1 x10 3/uL) 0.0 0 Diagnosis, Assessment Plan Free Text A P: Patient seen and evaluated, discussed with care team, images and laboratories reviewed. History of arrhythmia status post pacemaker plac ement History of abdominoplasty co mplicated by cellulitis and abdominal wall abscess, status post I D, was treated with vancomycin and Zosyn. Acute kidney injury: Possibilities include contr ast with her CT scan of the abdomen and pelvis and oral vancomycin. Will amairani ck random back level, check urinalysis, check urine protein creatinine ratio . Mild hyponatremia Significant anemia: We will check iron studies B 12. 05/11/2020 laboratory this m orning showed sodium 136, potassium 3.9, CO2 22, BUN 15, creatinine 2.3 continues to rise, vancomycin level 28 almost 20 hours after the last dose, her DARIAN is likely related to comb ination of contrast plus vancomycin toxicity, urinalysis negative, B12 wi thin normal limit, iron saturation 11% with a ferritin around 92. 05/12/2020 laboratory this m orning showed sodium 138, potassium 3.7, CO2 21, BUN 17, creatinine 2.5 up from 2.3 hopefully reaching plateau. We will continue to monitor closely 05/13/2020 laboratory this m orning showed sodium 138, potassium 3.7, CO2 22, BUN /creatinine 19 and 2.7 continue to trend up slow ly. 05/14/2020 laboratory this m orning showed sodium 137, potassium 3.1 we will give KCl 20 mg p.o. x3 doses, CO2 26, BUN and creatinine 22.4 started to improve down from 2.7, hemoglobin 7.6, platelet 492, white bl ood count 12.8, okay to discharge home from renal standpoint wit h outpatient follow-up. Blood pressure is elevated will add Norvasc 10 mg p.o. daily. 05/15/2020 laboratory this m orning showed sodium 130, potassium 3.6, CO2 26, BUN 19, creatinine 2.2 down from 2.4 continues to improve, hemoglobin 8.4, platelet, white blood count 10.6 05/16/2020 laboratory this m orning showed sodium 139, potassium 3.5, CO2 26, BUN 17, creatinine 2.4 slightly up from yesterday, okay to discharge home from renal standpoint with outpatient follow-up in 1 to 2 w eeks. at 1051 RPT #:[id number] END OF REPORT 2020-05-15 13:14:00-00:00 [facility] Hospitalist Progress Note REPORT#:[id number] REPORT STATUS: Signed DATE:05/15/20 TIME: 1314 PATIENT: LAKSHMI BATES UNIT #: [id number] [place] [facility] [place] AGE: 60 SEX: F ATTEND: Wan Marc DO ADM AUTHOR: Mynor Hines MD * ALL edits or amendments must be made on the [employer]/computer document * Subjective Chief Complaint: AMBULATING IN THE HALLWAY, R PIERRE TO GO HOME BUT KNOWS SHE HAS TO WAIT FOR CM TO ARRANGE FOR HOME EZEKIEL BX SETUP. Objective General VS/I O: Vital Signs: Date Time Temp Pulse Resp B/P B/P Pulse O2 O2 Flow FiO2 Mean Ox Delivery Rate 05/15 1120 98.4 61 20 125/64 84.2 97 05/15 0749 98.6 62 20 132/75 93.8 95 05/15 0430 97.9 56 16 121/73 89.2 97 Room air 05/14 2350 99.1 55 16 131/79 96.4 95 Room air 05/14 1923 98.2 61 16 137/72 93.3 96 Room air 05/14 1623 98.4 59 18 169/82 110.8 94 Room air 24 hour I O ending at 0700: 05/15 0700 05/14 1900 Intake Total 200.00 1100.00 Output Total Balance 200.00 1100.00 Intake, IV 200.00 100.00 Intake, Oral 1000 Number Voids 4 PATIENT WEIGHT: Weight (lb): 186 Weight (oz): 15.23 Weight (kg): 84.800 Medications: Active Meds + DC'd Last 24 Hrs Hydrocodone Bitart/Acetaminophen 1 TAB Q4H PRN P RN PO Piperacillin Sod/Tazobactam Sod 3.375 GM Q8H IV Sodium Chloride 100 ML Amlodipine Besylate 10 MG DAILY PO Nystatin 1 APPLIC BID TOPICAL Sodium Chloride 10 ML BID IV Sodium Chloride 10 ML ASDIR PRN IV Ondansetron HCl 4 MG Q6H PRN PRN IV Sodium Chloride 10 ML ASDIR IV Progesterone 200 MG BEDTIME PO Enoxaparin Sodium 40 MG Q24H SUBQ Al Hydrox/Mg Hydrox/Simethicone 30 ML Q4H PRN MD N PO Docusate Sodium 100 MG BID PRN PRN PO Hydralazine HCl 10 MG Q6H PRN PRN IV Ondansetron HCl 4 MG Q4H PRN PRN IV Physical Exam General appearance: obese, alert, awake, oriente d Neck: no JVD Cardiovascular: normal heart sounds, regular rat e rhythm Respiratory: aerating well, clear to auscultatio n Abdomen: obese, normal bowel sounds, soft, SUPRAPUBIC WOUND PARTIALLY SEEN WITH TRACKING HOLE, AND PARTLY DRESSED. Extremities: no edema 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, oriented X 3, normal speech, n o motor deficits Psychiatry: anxious Results Findings/Data: Laboratory Tests 05/15 0510 Chemistry Sodium (134 - 147 mEq/L) 138 Potassium (3.4 - 5.0 mEq/L) 3.6 Chloride (100 - 108 mEq/L) 103 Carbon Dioxide (21 - 33 mEq/l) 26 Anion Gap (0 - 20) 13 BUN (7 - 18 mg/dL) 19 H Creatinine (0.6 - 1.3 mg/dL) 2.2 H Glomerular Filtr Rate (80 - 90) 22.8 L Glucose (70 - 110 mg/dL) 161 H Calcium (8.0 - 10.5 mg/dL) 9.2 Laboratory Tests 05/15 0510 Hematology WBC (4.5 - 11.0 x10 3/uL) 10.6 RBC (3.54 - 5.02 x10 6/uL) 3.06 L Hgb (11.0 - 15.0 g/dL) 8.4 L Hct (33.0 - 45.0 %) 27.4 L MCV (81.0 - 99.0 fL) 89.5 MCH (27.0 - 33.0 pg) 27.5 MCHC (33.0 - 37.0 g/dL) 30.7 L RDW (11.5 - 14.5 %) 14.4 Plt Count (150 - 400 x10 3/uL) 537 H MPV (7.0 - 9.0 fL) 9.4 H Neut % (Auto) (56.0 - 77.0 %) 74.9 Lymph % (Auto) (14.0 - 32.0 %) 14.8 [place] % (Auto) (4.8 - 9.0 %) 5.9 Eos % (Auto) (0.3 - 3.7 %) 1.9 Baso % (Auto) (0.0 - 2.0 %) 0.5 Neut # (Auto) (2.0 - 7.6 x10 3/uL) 7.93 H Lymph # (Auto) (1.0 - 3.8 x10 3/uL) 1.56 [place] # (Auto) (0.1 - 0.8 x10 3/uL) 0.62 Eos # (Auto) (0.0 - 0.2 x10 3/uL) 0.20 Baso # (Auto) (0.0 - 0.2 x10 3/uL) 0.05 Abs Immat Gran (auto) (0.00 - 0.03 x10 3/uL) 0. 21 H Add Manual Diff NO Immature Gran % (0.0 - 2.0 %) 2.0 Nucleated RBC % (0 - 0 %) 0.0 Nucleated RBCs # (Man) (0.0 - 0.1 x10 3/uL) 0.0 0 Diagnosis, Assessment Plan Hospital course to date: 1. POST OP WOUND INFECTION WITH POLYMICROBIAL (ENTEROCOCCUS/E.COLI/STREP GRP B) , S/P DEBRIDEMENT (FAT NECROSIS/PURULENCE IN OP REPORT) - CONT ZOSYN AT RENAL DOSE X 4 WEEKS AT HOME, ID/G S SEEN, S/P PICC LINE, D/C HOME ON SATURDAY WITH CM TO ARRANGE FOR HOME IV ABX BY [facility] 2. ARF DUE TO SEPSIS/ATN, V ANC AND CONTRAST-INDUCED - FROM 0.7 TO 2.1, 2.3, 2.5 , 2.7, 2.4 AND 2.2 NOW, D/C VANC, RENAL SEEN, RE NAL US WITH RIGHT ADRENAL MYELOLIPOMA, ALSO FLUID OL F ROM INITIAL IVF, S/P LASIX 20 IV BID X 4 DOSES, O/P F/U WITH RENAL. F/U O/P. Antibiotics as DOSE above. General surgery consulted for drainage of abdominal abscess. Will need to send fluid for Gram stain and culture 3. Anemia OF CD, RECENT BLOOD LOSS FROM ABDOMIN OPLASTY - STABLE, NL IRON STUDIES S/O ACUTE SURGICAL BLOOD LOSS Hemoglobin 9.3, will monitor. Transfuse PRBCs f or hemoglobin less than 7.0. 4. Hyponatremia FROM FLUID OL - RESOLVE D, D/C IVF DUE TO FLUID OL, AND EATING NOW 5. Sepsis, POA - ABOVE, WILL NEED 28 DAYS OF IV ABX SETUP BY CM, AND PICC, HAS [employer] INSURANCE. Patient meets criteria for sepsis due to fever and leukocytosis, source abdominal cellulitis and abscess. Continue fluid resuscitation with IV normal saline, will treat with IV Zosyn as above. I SPENT 20 MINUTES ON REVIEWING CHART, LABS, ZULEIKA TS, MEDS, PROGRESS NOTES, TRT PLAN, AND DISCUSSION WITH THE PATIENT. Problem List/A P: 1. Cellulitis, abdominal wall Will start patient on IV Zo syn due to cellulitis and abscess of abdominal wall. 2. Abdominal abscess Antibiotics as above. General surgery consulted for drainage of abdominal abscess. Will need to send fluid for Gram stain and culture 3. Anemia Hemoglobin 9.3, will monitor. Transfuse PRBCs f or hemoglobin less than 7.0. 4. Hyponatremia 5. Sepsis Patient meets criteria for sepsis due to fever and leukocytosis, source abdominal cellulitis and abscess. Continue fluid resuscitation with IV normal saline, will treat with IV Zosyn as above. Free Text DxA P Notes Free text DxA P notes: 1. POST OP WOUND INFECTION WITH POLYMICROBIAL (ENTEROCOCCUS/E.COLI/STREP GRP B) , S/P DEBRIDEMENT (FAT NECROSIS/PURULENCE IN OP REPORT) - CONT ZOSYN AT RENAL DOSE, ID/GS SEEN, S/P PICC LINE Will start patient on IV Zo syn due to cellulitis and abscess of abdominal wall. 2. ARF DUE TO SEPSIS/ATN, V ANC AND CONTRAST-INDUCED - FROM 0.7 TO 2.1, 2.3 2.5, 2.7 NOW, OFF VANC, RENAL SEEN, RENAL US WITH RIG HT ADRENAL MYELOLIPOMA, ALSO FLUID OL FROM INITIAL IVF, GIVE LASIX 20 IV BID X 4 DOSES WITH KCL 10 BID X3 DOSES. RECOMMEND TO STAY UNTIL RENAL FUNCTION IM PROVES. SHE WANTS TO GO HOME EARLY NOW. Antibiotics as DOSE above. General surgery consulted for drainage of abdominal abscess. Will need to send fluid for Gram stain and culture 3. Anemia OF CD, RECENT BLOOD LOSS FROM ABDOMIN OPLASTY - STABLE, NL IRON STUDIES S/O ACUTE SURGICAL BLOOD LOSS Hemoglobin 9.3, will monitor. Transfuse PRBCs f or hemoglobin less than 7.0. 4. Hyponatremia FROM FLUID OL - RESOLVE D, D/C IVF DUE TO FLUID OL, AND EATING NOW 5. Sepsis, POA - ABOVE, WILL NEED 28 DAYS OF IV ABX, HAS [employer] INSURANCE. Patient meets criteria for sepsis due to fever and leukocytosis, source abdominal cellulitis and abscess. Continue fluid resuscitation with IV normal saline, will treat with IV Zosyn as above. I SPENT 25 MINUTES ON REVIEWING CHART, LABS, ZULEIKA TS, MEDS, PROGRESS NOTES, TRT PLAN, AND DISCUSSION WITH THE PATIENT, AND HER N [place]. Electronically Signed by Mynor Hines MD on 05/15 at 1320 RPT #:[id number] END OF REPORT 2020-05-15 07:55:00-00:00 [facility] ([facility] Nephrology Progress Note REPORT#:[id number] REPORT STATUS: Signed DATE:05/15/20 TIME: 0755 PATIENT: LAKSHMI BATES UNIT #: [id number] ROOM/BED: [place] [address] : 60 AGE: 60 SEX: F ATTEND: Wan Marc DO ADM AUTHOR: Jonatan Virk MD * ALL edits or amendments must be made on the [employer]/computer document * Subjective Chief Complaint: Abdominal wall abscess/DARIAN Patient reports: Yes: complaints. Comments: Patient seen and evaluated, HPI no change from i nitial, feels okay. Review of Systems Constitutional: Yes chills, Yes fever Skin: Yes swelling Allergy/Immun: No hives, No itching Eyes: No redness, No discharge ENT: No ear drainage, No ear ringing Respiratory: No hemoptysis, No SOB Cardiovascular: No chest pain, No palpitations Objective General VS/I O: Vital Signs: Date Time Temp Pulse Resp B/P B/P Pulse O2 O2 F low FiO2 Mean Ox Delivery Rate 05/15 0749 37.0 62 20 132/75 93.8 95 05/15 0430 36.6 56 16 121/73 89.2 97 Room air 05/14 2350 37.3 55 16 131/79 96.4 95 Room air 05/14 1923 36.8 61 16 137/72 93.3 96 Room air 05/14 1623 36.9 59 18 169/82 110.8 94 Room air 05/14 1052 36.9 61 18 147/79 102.0 96 Room air 05/14 0810 36.7 65 18 163/70 100.9 95 Room air 24 hour I O ending at 0700: 05/15 0700 05/14 1900 Intake Total 200.00 1100.00 Output Total Balance 200.00 1100.00 Intake, IV 200.00 100.00 Intake, Oral 1000 Number Voids 4 Medications Active Meds + DC'd Last 24 Hrs Hydrocodone Bitart/Acetaminophen 1 TAB Q4H PRN P RN PO Piperacillin Sod/Tazobactam Sod 3.375 GM Q8H IV Sodium Chloride 100 ML Amlodipine Besylate 10 MG DAILY PO Potassium Chloride 20 MEQ Q2H PO (DC) Nystatin 1 APPLIC BID TOPICAL Sodium Chloride 10 ML BID IV Sodium Chloride 10 ML ASDIR PRN IV Hydrocodone Bitart/Acetaminophen 1 TAB Q4H PRN P RN PO (DC) Hydrocodone Bitart/Acetaminophen 1 TAB Q4H PRN P RN PO (DC) Ondansetron HCl 4 MG Q6H PRN PRN IV Sodium Chloride 10 ML ASDIR IV Progesterone 200 MG BEDTIME PO Enoxaparin Sodium 40 MG Q24H SUBQ Al Hydrox/Mg Hydrox/Simethicone 30 ML Q4H PRN MD N PO Docusate Sodium 100 MG BID PRN PRN PO Hydralazine HCl 10 MG Q6H PRN PRN IV Ondansetron HCl 4 MG Q4H PRN PRN IV Physical Exam General appearance: alert, no acute distress Head/eyes: atraumatic, normocephalic ENT: normal nose Neck: supple/no meningismus Cardiovascular: normal heart sounds, no rub Respiratory: aerating well, no distress Abdomen: soft Genitourinary: no flank pain Extremities: pitting edema, non-tender Musculoskeletal: no CVA tenderness, no tenderene ss 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, normal speech Skin: dry, intact Results Findings/Data: Laboratory Tests 05/14 05/13 0440 0345 Chemistry Sodium (134 - 147 mEq/L) 137 138 Potassium (3.4 - 5.0 mEq/L) 3.1 L 3.7 Chloride (100 - 108 mEq/L) 101 105 Carbon Dioxide (21 - 33 mEq/l) 26 22 Anion Gap (0 - 20) 13 15 BUN (7 - 18 mg/dL) 20 H 19 H Creatinine (0.6 - 1.3 mg/dL) 2.4 H 2.7 H Glomerular Filtr Rate (80 - 90) 20.6 L 18.0 L Glucose (70 - 110 mg/dL) 90 111 H Calcium (8.0 - 10.5 mg/dL) 8.8 8.7 Phosphorus (2.5 - 4.9 MG/DL) 4.7 4.7 Magnesium (1.80 - 2.40 mg/dL) 2.04 2.10 Laboratory Tests 05/14 0440 Hematology WBC (4.5 - 11.0 x10 3/uL) 12.8 H RBC (3.54 - 5.02 x10 6/uL) 2.74 L Hgb (11.0 - 15.0 g/dL) 7.6 L Hct (33.0 - 45.0 %) 24.4 L MCV (81.0 - 99.0 fL) 89.1 MCH (27.0 - 33.0 pg) 27.7 MCHC (33.0 - 37.0 g/dL) 31.1 L RDW (11.5 - 14.5 %) 14.6 H Plt Count (150 - 400 x10 3/uL) 492 H MPV (7.0 - 9.0 fL) 9.6 H Neut % (Auto) (56.0 - 77.0 %) 77.1 H Lymph % (Auto) (14.0 - 32.0 %) 12.3 L [place] % (Auto) (4.8 - 9.0 %) 6.7 Eos % (Auto) (0.3 - 3.7 %) 1.7 Baso % (Auto) (0.0 - 2.0 %) 0.4 Neut # (Auto) (2.0 - 7.6 x10 3/uL) 9.82 H Lymph # (Auto) (1.0 - 3.8 x10 3/uL) 1.57 [place] # (Auto) (0.1 - 0.8 x10 3/uL) 0.86 H Eos # (Auto) (0.0 - 0.2 x10 3/uL) 0.22 H Baso # (Auto) (0.0 - 0.2 x10 3/uL) 0.05 Abs Immat Gran (auto) (0.00 - 0.03 x10 3/uL) 0. 23 H Add Manual Diff NO Immature Gran % (0.0 - 2.0 %) 1.8 Nucleated RBC % (0 - 0 %) 0.0 Nucleated RBCs # (Man) (0.0 - 0.1 x10 3/uL) 0.0 0 Diagnosis, Assessment Plan Free Text A P: Patient seen and evaluated, discussed with care team, images and laboratories reviewed. History of arrhythmia status post pacemaker plac ement History of abdominoplasty co mplicated by cellulitis and abdominal wall abscess, status post I D, was treated with vancomycin and Zosyn. Acute kidney injury: Possibilities include contr ast with her CT scan of the abdomen and pelvis and oral vancomycin. Will amairani ck random back level, check urinalysis, check urine protein creatinine ratio . Mild hyponatremia Significant anemia: We will check iron studies B 12. 05/11/2020 laboratory this m orning showed sodium 136, potassium 3.9, CO2 22, BUN 15, creatinine 2.3 continues to rise, vancomycin level 28 almost 20 hours after the last dose, her DARIAN is likely related to comb ination of contrast plus vancomycin toxicity, urinalysis negative, B12 wi thin normal limit, iron saturation 11% with a ferritin around 92. 05/12/2020 laboratory this m orning showed sodium 138, potassium 3.7, CO2 21, BUN 17, creatinine 2.5 up from 2.3 hopefully reaching plateau. We will continue to monitor closely 05/13/2020 laboratory this m orning showed sodium 138, potassium 3.7, CO2 22, BUN /creatinine 19 and 2.7 continue to trend up slow ly. 05/14/2020 laboratory this m orning showed sodium 137, potassium 3.1 we will give KCl 20 mg p.o. x3 doses, CO2 26, BUN and creatinine 22.4 started to improve down from 2.7, hemoglobin 7.6, platelet 492, white bl ood count 12.8, okay to discharge home from renal standpoint wit h outpatient follow-up. Blood pressure is elevated will add Norvasc 10 mg p.o. daily. 05/15/2020 laboratory this m orning showed sodium 130, potassium 3.6, CO2 26, BUN 19, creatinine 2.2 down from 2.4 continues to improve, hemoglobin 8.4, platelet, white blood count 10.6 at 1109 RPT #:[id number] END OF REPORT 2020-05-14 13:01:00-00:00 [facility] Hospitalist Progress Note REPORT#:[id number] REPORT STATUS: Signed DATE:05/14/20 TIME: 1301 PATIENT: LAKSHMI BATES UNIT #: [id number] ROOM/BED: [place] [address] : 60 AGE: 60 SEX: F ATTEND: Wan Marc DO ADM AUTHOR: Mynor Hines MD * ALL edits or amendments must be made on the [employer]/computer document * Subjective Chief Complaint: HE'S READY TO GO HOME, AND ADVISED TO F/U WITH R ENAL/PLASTIC/ID/GS Objective General Medications: Active Meds + DC'd Last 24 Hrs Amlodipine Besylate 10 MG DAILY PO Potassium Chloride 20 MEQ Q2H PO (DC) Furosemide 20 MG BID 9A 5P IV (DC) Nystatin 1 APPLIC BID TOPICAL Sodium Chloride 10 ML BID IV Sodium Chloride 10 ML ASDIR PRN IV Hydrocodone Bitart/Acetaminophen 1 TAB Q4H PRN P RN PO (DC) Hydrocodone Bitart/Acetaminophen 1 TAB Q4H PRN P RN PO (DC) Ondansetron HCl 4 MG Q6H PRN PRN IV Sodium Chloride 10 ML ASDIR IV Progesterone 200 MG BEDTIME PO Enoxaparin Sodium 40 MG Q24H SUBQ Al Hydrox/Mg Hydrox/Simethicone 30 ML Q4H PRN MD N PO Docusate Sodium 100 MG BID PRN PRN PO Hydralazine HCl 10 MG Q6H PRN PRN IV Ondansetron HCl 4 MG Q4H PRN PRN IV Physical Exam General appearance: obese, alert, awake, oriente d Neck: no JVD Cardiovascular: normal heart sounds, regular rat e rhythm Respiratory: aerating well, clear to auscultatio n Abdomen: obese, normal bowel sounds, soft, SUPRAPUBIC WOUND PARTIALLY SEEN WITH TRACKING HOLE, AND PARTLY DRESSED. Extremities: no edema 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, oriented X 3, normal speech, n o motor deficits Psychiatry: anxious Results Findings/Data: Laboratory Tests 05/14 0440 Chemistry Sodium (134 - 147 mEq/L) 137 Potassium (3.4 - 5.0 mEq/L) 3.1 L Chloride (100 - 108 mEq/L) 101 Carbon Dioxide (21 - 33 mEq/l) 26 Anion Gap (0 - 20) 13 BUN (7 - 18 mg/dL) 20 H Creatinine (0.6 - 1.3 mg/dL) 2.4 H Glomerular Filtr Rate (80 - 90) 20.6 L Glucose (70 - 110 mg/dL) 90 Calcium (8.0 - 10.5 mg/dL) 8.8 Phosphorus (2.5 - 4.9 MG/DL) 4.7 Magnesium (1.80 - 2.40 mg/dL) 2.04 Laboratory Tests 05/14 0440 Hematology WBC (4.5 - 11.0 x10 3/uL) 12.8 H RBC (3.54 - 5.02 x10 6/uL) 2.74 L Hgb (11.0 - 15.0 g/dL) 7.6 L Hct (33.0 - 45.0 %) 24.4 L MCV (81.0 - 99.0 fL) 89.1 MCH (27.0 - 33.0 pg) 27.7 MCHC (33.0 - 37.0 g/dL) 31.1 L RDW (11.5 - 14.5 %) 14.6 H Plt Count (150 - 400 x10 3/uL) 492 H MPV (7.0 - 9.0 fL) 9.6 H Neut % (Auto) (56.0 - 77.0 %) 77.1 H Lymph % (Auto) (14.0 - 32.0 %) 12.3 L [place] % (Auto) (4.8 - 9.0 %) 6.7 Eos % (Auto) (0.3 - 3.7 %) 1.7 Baso % (Auto) (0.0 - 2.0 %) 0.4 Neut # (Auto) (2.0 - 7.6 x10 3/uL) 9.82 H Lymph # (Auto) (1.0 - 3.8 x10 3/uL) 1.57 [place] # (Auto) (0.1 - 0.8 x10 3/uL) 0.86 H Eos # (Auto) (0.0 - 0.2 x10 3/uL) 0.22 H Baso # (Auto) (0.0 - 0.2 x10 3/uL) 0.05 Abs Immat Gran (auto) (0.00 - 0.03 x10 3/uL) 0. 23 H Add Manual Diff NO Immature Gran % (0.0 - 2.0 %) 1.8 Nucleated RBC % (0 - 0 %) 0.0 Nucleated RBCs # (Man) (0.0 - 0.1 x10 3/uL) 0.0 0 Diagnosis, Assessment Plan Hospital course to date: 1. POST OP WOUND INFECTION WITH POLYMICROBIAL (ENTEROCOCCUS/E.COLI/STREP GRP B) , S/P DEBRIDEMENT (FAT NECROSIS/PURULENCE IN OP REPORT) - CONT ZOSYN AT RENAL DOSE X 4 WEEKS AT HOME, ID/GS SEEN, S/P PICC BREE E, D/C HOME NOW Will start patient on IV Zo syn due to cellulitis and abscess of abdominal wall. 2. ARF DUE TO SEPSIS/ATN, V ANC AND CONTRAST-INDUCED - FROM 0.7 TO 2.1, 2.3, 2.5 , 2.7 ADN 2.4 NOW, D/C VANC, RENAL SEEN, RENAL US WITH RIGHT ADRENAL MYELOLIPOMA , ALSO FLUID OL FROM INITIAL IVF, S/P LASIX 20 I V BID X 4 DOSES, O/P F/U WITH RENAL. Antibiotics as DOSE above. General surgery consulted for drainage of abdominal abscess. Will need to send fluid for Gram stain and culture 3. Anemia OF CD, RECENT BLOOD LOSS FROM ABDOMIN OPLASTY - STABLE, NL IRON STUDIES S/O ACUTE SURGICAL BLOOD LOSS Hemoglobin 9.3, will monitor. Transfuse PRBCs f or hemoglobin less than 7.0. 4. Hyponatremia FROM FLUID OL - RESOLVE D, D/C IVF DUE TO FLUID OL, AND EATING NOW 5. Sepsis, POA - ABOVE, WILL NEED 28 DAYS OF IV ABX SETUP BY CM, AND PICC, HAS [employer] INS[employer]ANCE. Patient meets criteria for sepsis due to fever and leukocytosis, source abdominal cellulitis and abscess. Continue fluid resuscitation with IV normal saline, will treat with IV Zosyn as above. I SPENT 35 MINUTES ON REVIEWING CHART, LABS, ZULEIKA TS, MEDS, PROGRESS NOTES, TRT PLAN, AND DISCUSSION WITH THE PATIENT, AND DR. Nora REYES. Problem List/A P: 1. Cellulitis, abdominal wall Will start patient on IV Zo syn due to cellulitis and abscess of abdominal wall. 2. Abdominal abscess Antibiotics as above. General surgery consulted for drainage of abdominal abscess. Will need to send fluid for Gram stain and culture 3. Anemia Hemoglobin 9.3, will monitor. Transfuse PRBCs f or hemoglobin less than 7.0. 4. Hyponatremia 5. Sepsis Patient meets criteria for sepsis due to fever and leukocytosis, source abdominal cellulitis and abscess. Continue fluid resuscitation with IV normal saline, will treat with IV Zosyn as above. Free Text DxA P Notes Free text DxA P notes: 1. POST OP WOUND INFECTION WITH POLYMICROBIAL (ENTEROCOCCUS/E.COLI/STREP GRP B) , S/P DEBRIDEMENT (FAT NECROSIS/PURULENCE IN OP REPORT) - CONT ZOSYN AT RENAL DOSE, ID/GS SEEN, S/P PICC LINE Will start patient on IV Zo syn due to cellulitis and abscess of abdominal wall. 2. ARF DUE TO SEPSIS/ATN, V ANC AND CONTRAST-INDUCED - FROM 0.7 TO 2.1, 2.3 2.5, 2.7 NOW, OFF VANC, RENAL SEEN, RENAL US WITH RIG HT ADRENAL MYELOLIPOMA, ALSO FLUID OL FROM INITIAL IVF, GIVE LASIX 20 IV BID X 4 DOSES WITH KCL 10 BID X3 DOSES. RECOMMEND TO STAY UNTIL RENAL FUNCTION IM PROVES. SHE WANTS TO GO HOME EARLY NOW. Antibiotics as DOSE above. General surgery consulted for drainage of abdominal abscess. Will need to send fluid for Gram stain and culture 3. Anemia OF CD, RECENT BLOOD LOSS FROM ABDOMIN OPLASTY - STABLE, NL IRON STUDIES S/O ACUTE SURGICAL BLOOD LOSS Hemoglobin 9.3, will monitor. Transfuse PRBCs f or hemoglobin less than 7.0. 4. Hyponatremia FROM FLUID OL - RESOLVE D, D/C IVF DUE TO FLUID OL, AND EATING NOW 5. Sepsis, POA - ABOVE, WILL NEED 28 DAYS OF IV ABX, HAS [employer] INSURANCE. Patient meets criteria for sepsis due to fever and leukocytosis, source abdominal cellulitis and abscess. Continue fluid resuscitation with IV normal saline, will treat with IV Zosyn as above. I SPENT 25 MINUTES ON REVIEWING CHART, LABS, ZULEIKA TS, MEDS, PROGRESS NOTES, TRT PLAN, AND DISCUSSION WITH THE PATIENT, AND HER N LUKE. Electronically Signed by Mnyor Hines MD on 05/14 at 1304 RPT #:[id number] END OF REPORT 2020-05-14 08:29:00-00:00 [facility] ([facility]) Nephrology Progress Note REPORT#:[id number] REPORT STATUS: Signed DATE:05/14/20 TIME: 828 PATIENT: LAKSHMI BATES UNIT #: [id number] ROOM/BED: 5509-1 : 60 AGE: 60 SEX: F ATTEND: Wan Marc DO ADM AUTHOR: Jonatan Virk MD * ALL edits or amendments must be made on the [employer]/computer document * Subjective Chief Complaint: Abdominal wall abscess/DARIAN Patient reports: Yes: complaints. Comments: Patient seen and evaluated, HPI no change from i nitial, feels okay Review of Systems Constitutional: Yes chills, Yes fever Skin: Yes swelling Allergy/Immun: No hives, No itching Eyes: No redness, No discharge ENT: No ear drainage, No ear ringing Respiratory: No hemoptysis, No SOB Cardiovascular: No chest pain, No palpitations Objective General VS/I O: Vital Signs: Date Time Temp Pulse Resp B/P B/P Pulse O2 O2 F low FiO2 Mean Ox Delivery Rate 05/14 0810 36.7 65 18 163/70 100.9 95 Room air 05/14 0405 36.8 62 16 157/75 0.0 95 Room air 05/13 2303 36.8 59 16 152/77 102.2 95 Room air 05/13 1944 37.0 64 16 155/70 98.4 96 Room air 05/13 1514 36.8 60 18 134/80 98.2 96 Room air 05/13 1036 36.9 61 18 145/80 101.6 96 Room air 24 hour I O ending at 0700: 05/14 0700 05/13 1900 Intake Total 480 680 Output Total Balance 480 680 Intake, Oral 480 680 Intake, Oral 0 Supplement Number 0 Bowel Movements Number Voids 5 2 Medications Active Meds + DC'd Last 24 Hrs Potassium Chloride 10 MEQ BID PO (DC) Furosemide 20 MG BID 9A 5P IV (DC) Nystatin 1 APPLIC BID TOPICAL Sodium Chloride 10 ML BID IV Sodium Chloride 10 ML ASDIR PRN IV Hydrocodone Bitart/Acetaminophen 1 TAB Q4H PRN P RN PO Hydrocodone Bitart/Acetaminophen 1 TAB Q4H PRN P RN PO Ondansetron HCl 4 MG Q6H PRN PRN IV Sodium Chloride 10 ML ASDIR IV Progesterone 200 MG BEDTIME PO Enoxaparin Sodium 40 MG Q24H SUBQ (r) Piperacillin Sod/Tazobactam Sod 3.375 GM Q8H IV (DC) Sodium Chloride 100 ML Al Hydrox/Mg Hydrox/Simethicone 30 ML Q4H PRN MD N PO Docusate Sodium 100 MG BID PRN PRN PO Hydralazine HCl 10 MG Q6H PRN PRN IV Ondansetron HCl 4 MG Q4H PRN PRN IV Physical Exam General appearance: alert, no acute distress Head/eyes: atraumatic, normocephalic ENT: normal nose Neck: supple/no meningismus Cardiovascular: normal heart sounds, no rub Respiratory: aerating well, no distress Abdomen: soft Genitourinary: no flank pain Extremities: pitting edema, non-tender Musculoskeletal: no CVA tenderness, no tenderene ss 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, normal speech Skin: dry, intact Results Findings/Data: Laboratory Tests 05/14 440 Chemistry Sodium (134 - 147 mEq/L) 137 Potassium (3.4 - 5.0 mEq/L) 3.1 L Chloride (100 - 108 mEq/L) 101 Carbon Dioxide (21 - 33 mEq/l) 26 Anion Gap (0 - 20) 13 BUN (7 - 18 mg/dL) 20 H Creatinine (0.6 - 1.3 mg/dL) 2.4 H Glomerular Filtr Rate (80 - 90) 20.6 L Glucose (70 - 110 mg/dL) 90 Calcium (8.0 - 10.5 mg/dL) 8.8 Phosphorus (2.5 - 4.9 MG/DL) 4.7 Magnesium (1.80 - 2.40 mg/dL) 2.04 Laboratory Tests 05/14 440 Hematology WBC (4.5 - 11.0 x10 3/uL) 12.8 H RBC (3.54 - 5.02 x10 6/uL) 2.74 L Hgb (11.0 - 15.0 g/dL) 7.6 L Hct (33.0 - 45.0 %) 24.4 L MCV (81.0 - 99.0 fL) 89.1 MCH (27.0 - 33.0 pg) 27.7 MCHC (33.0 - 37.0 g/dL) 31.1 L RDW (11.5 - 14.5 %) 14.6 H Plt Count (150 - 400 x10 3/uL) 492 H MPV (7.0 - 9.0 fL) 9.6 H Neut % (Auto) (56.0 - 77.0 %) 77.1 H Lymph % (Auto) (14.0 - 32.0 %) 12.3 L [place] % (Auto) (4.8 - 9.0 %) 6.7 Eos % (Auto) (0.3 - 3.7 %) 1.7 Baso % (Auto) (0.0 - 2.0 %) 0.4 Neut # (Auto) (2.0 - 7.6 x10 3/uL) 9.82 H Lymph # (Auto) (1.0 - 3.8 x10 3/uL) 1.57 [place] # (Auto) (0.1 - 0.8 x10 3/uL) 0.86 H Eos # (Auto) (0.0 - 0.2 x10 3/uL) 0.22 H Baso # (Auto) (0.0 - 0.2 x10 3/uL) 0.05 Abs Immat Gran (auto) (0.00 - 0.03 x10 3/uL) 0. 23 H Add Manual Diff NO Immature Gran % (0.0 - 2.0 %) 1.8 Nucleated RBC % (0 - 0 %) 0.0 Nucleated RBCs # (Man) (0.0 - 0.1 x10 3/uL) 0.0 0 Diagnosis, Assessment Plan Free Text A P: Patient seen and evaluated, discussed with care team, images and laboratories reviewed. History of arrhythmia status post pacemaker plac ement History of abdominoplasty co mplicated by cellulitis and abdominal wall abscess, status post I D, was treated with vancomycin and Zosyn. Acute kidney injury: Possibilities include contr ast with her CT scan of the abdomen and pelvis and oral vancomycin. Will amairani ck random back level, check urinalysis, check urine protein creatinine ratio . Mild hyponatremia Significant anemia: We will check iron studies B 12. 05/11/2020 laboratory this m orning showed sodium 136, potassium 3.9, CO2 22, BUN 15, creatinine 2.3 continues to rise, vancomycin level 28 almost 20 hours after the last dose, her DARIAN is likely related to comb ination of contrast plus vancomycin toxicity, urinalysis negative, B12 wi thin normal limit, iron saturation 11% with a ferritin around 92. 05/12/2020 laboratory this m orning showed sodium 138, potassium 3.7, CO2 21, BUN 17, creatinine 2.5 up from 2.3 hopefully reaching plateau. We will continue to monitor closely 05/13/2020 laboratory this m orning showed sodium 138, potassium 3.7, CO2 22, BUN /creatinine 19 and 2.7 continue to trend up slow ly. 05/14/2020 laboratory this m orning showed sodium 137, potassium 3.1 we will give KCl 20 mg p.o. x3 doses, CO2 26, BUN and creatinine 22.4 started to improve down from 2.7, hemoglobin 7.6, platelet 492, white bl ood count 12.8, okay to discharge home from renal standpoint wit h outpatient follow-up. Blood pressure is elevated will add Norvasc 10 mg p.o. daily. at 1139 RPT #:[id number] END OF REPORT 2020-05-13 13:50:00-00:00 [facility] ([facility]) Hospitalist Progress Note REPORT#:[id number] REPORT STATUS: Signed DATE:05/13/20 TIME: 1350 PATIENT: LAKSHMI BATES UNIT #: [id number] ROOM/BED: 5509-1 : 60 AGE: 60 SEX: F ATTEND: Wan Marc DO ADM AUTHOR: Mynor Hines MD * ALL edits or amendments must be made on the [employer]/computer document * Subjective Chief Complaint: INFORMED OF MANAGER BAKERY 2.7 FROM 2.5 YESTERDAY, SHE REFUSED [facility], THUS SHE CAN STAY HERE UNTIL RENAL FUNCTION SHUN R, THEN SHE SAID SHE WANTS TO GO HOME. Objective General VS/I O: Vital Signs: Date Time Temp Pulse Resp B/P B/P Pulse O2 O2 F low FiO2 Mean Ox Delivery Rate 05/13 1036 98.4 61 18 145/80 101.6 96 Room air 05/13 0720 99.0 63 18 145/80 101.4 96 Room air 05/13 0337 98.6 56 16 138/76 96.6 96 Room air 05/12 2304 99.0 52 16 155/80 105.3 97 Room air 05/12 1934 98.1 64 16 133/78 96.1 96 Room air 05/12 1625 99.0 60 17 145/74 97.3 96 Room air 24 hour I O ending at 0700: 05/13 0700 05/12 1900 Intake Total 300.00 698 Output Total Balance 300.00 698 Intake, IV 100.00 Intake, Oral 200 698 Number Voids 8 PATIENT WEIGHT: Weight (lb): 186 Weight (oz): 15.23 Weight (kg): 84.800 Medications: Active Meds + DC'd Last 24 Hrs Potassium Chloride 10 MEQ BID PO (DC) Furosemide 20 MG BID 9A 5P IV Nystatin 1 APPLIC BID TOPICAL Sodium Chloride 10 ML BID IV Sodium Chloride 10 ML ASDIR PRN IV Hydrocodone Bitart/Acetaminophen 1 TAB Q4H PRN P RN PO Hydrocodone Bitart/Acetaminophen 1 TAB Q4H PRN P RN PO Ondansetron HCl 4 MG Q6H PRN PRN IV Sodium Chloride 10 ML ASDIR IV Progesterone 200 MG BEDTIME PO Enoxaparin Sodium 40 MG Q24H SUBQ (r) Piperacillin Sod/Tazobactam Sod 3.375 GM Q8H IV (DC) Sodium Chloride 100 ML Al Hydrox/Mg Hydrox/Simethicone 30 ML Q4H PRN MD N PO Docusate Sodium 100 MG BID PRN PRN PO Hydralazine HCl 10 MG Q6H PRN PRN IV Morphine Sulfate 4 MG Q4H PRN PRN IV (DC) Ondansetron HCl 4 MG Q4H PRN PRN IV Physical Exam General appearance: obese, alert, awake, oriente d Neck: no JVD Cardiovascular: normal heart sounds, regular rat e rhythm Respiratory: clear to auscultation Abdomen: obese, normal bowel sounds, soft, SUPRAPUBIC WOUND PARTIALLY SEEN WITH TRACKING HOLE, AND PARTLY DRESSED. Extremities: TRACE PRETIBIAL EDEMA 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, oriented X 3, normal speech, n o motor deficits Psychiatry: anxious Results Findings/Data: Laboratory Tests 05/13 0345 Chemistry Sodium (134 - 147 mEq/L) 138 Potassium (3.4 - 5.0 mEq/L) 3.7 Chloride (100 - 108 mEq/L) 105 Carbon Dioxide (21 - 33 mEq/l) 22 Anion Gap (0 - 20) 15 BUN (7 - 18 mg/dL) 19 H Creatinine (0.6 - 1.3 mg/dL) 2.7 H Glomerular Filtr Rate (80 - 90) 18.0 L Glucose (70 - 110 mg/dL) 111 H Calcium (8.0 - 10.5 mg/dL) 8.7 Phosphorus (2.5 - 4.9 MG/DL) 4.7 Magnesium (1.80 - 2.40 mg/dL) 2.10 Diagnosis, Assessment Plan Hospital course to date: 1. POST OP WOUND INFECTION WITH POLYMICROBIAL (ENTEROCOCCUS/E.COLI/STREP GRP B) , S/P DEBRIDEMENT (FAT NECROSIS/PURULENCE IN OP REPORT) - CONT ZOSYN AT RENAL DOSE, ID/GS SEEN, NOW HESITAE TO GO HOME , THUS ASK CM FOR LTAC EVAL, PICC LINE Will start patient on IV Zo syn due to cellulitis and abscess of abdominal wall. 2. ARF DUE TO SEPSIS/ATN, V ANC AND CONTRAST-INDUCED - FROM 0.7 TO 2.1, 2.3 2.5 NOW, HOLD VANC, RENAL SEEN, RENAL US WITH RIGHT ADRENAL MYELOLIPOMA, ALSO FLUID OL FROM INITIAL IVF, GIVE LASIX 20 IV BID X 4DOS ES, DISCUSSED WITH DR. VIRK AND OK WITH SMALL LASIX X4. Antibiotics as DOSE above. General surgery consulted for drainage of abdominal abscess. Will need to send fluid for Gram stain and culture 3. Anemia OF CD, RECENT BLOOD LOSS FROM ABDOMIN OPLASTY - STABLE, NL IRON STUDIES S/O ACUTE SURGICAL BLOOD LOSS Hemoglobin 9.3, will monitor. Transfuse PRBCs f or hemoglobin less than 7.0. 4. Hyponatremia FROM FLUID OL - RESOLVE D, D/C IVF DUE TO FLUID OL, AND EATING NOW 5. Sepsis, POA - ABOVE, WILL NEED 28 DAYS OF IV ABX SETUP BY CM, AND PICC, HAS [employer] INSURANCE. Patient meets criteria for sepsis due to fever and leukocytosis, source abdominal cellulitis and abscess. Continue fluid resuscitation with IV normal saline, will treat with IV Zosyn as above. I SPENT 35 MINUTES ON REVIEWING CHART, LABS, ZULEIKA TS, MEDS, PROGRESS NOTES, TRT PLAN, AND DISCUSSION WITH THE PATIENT, AND DR. Nora REYES. Problem List/A P: 1. Cellulitis, abdominal wall Will start patient on IV Zo syn due to cellulitis and abscess of abdominal wall. 2. Abdominal abscess Antibiotics as above. General surgery consulted for drainage of abdominal abscess. Will need to send fluid for Gram stain and culture 3. Anemia Hemoglobin 9.3, will monitor. Transfuse PRBCs f or hemoglobin less than 7.0. 4. Hyponatremia 5. Sepsis Patient meets criteria for sepsis due to fever and leukocytosis, source abdominal cellulitis and abscess. Continue fluid resuscitation with IV normal saline, will treat with IV Zosyn as above. Free Text DxA P Notes Free text DxA P notes: 1. POST OP WOUND INFECTION WITH POLYMICROBIAL (ENTEROCOCCUS/E.COLI/STREP GRP B) , S/P DEBRIDEMENT (FAT NECROSIS/PURULENCE IN OP REPORT) - CONT ZOSYN AT RENAL DOSE, ID/GS SEEN, S/P PICC LINE Will start patient on IV Zo syn due to cellulitis and abscess of abdominal wall. 2. ARF DUE TO SEPSIS/ATN, V ANC AND CONTRAST-INDUCED - FROM 0.7 TO 2.1, 2.3 2.5, 2.7 NOW, OFF VANC, RENAL SEEN, RENAL US WITH RIG HT ADRENAL MYELOLIPOMA, ALSO FLUID OL FROM INITIAL IVF, GIVE LASIX 20 IV BID X 4 DOSES WITH KCL 10 BID X3 DOSES. RECOMMEND TO STAY UNTIL RENAL FUNCTION IM PROVES. SHE WANTS TO GO HOME EARLY NOW. Antibiotics as DOSE above. General surgery consulted for drainage of abdominal abscess. Will need to send fluid for Gram stain and culture 3. Anemia OF CD, RECENT BLOOD LOSS FROM ABDOMIN OPLASTY - STABLE, NL IRON STUDIES S/O ACUTE SURGICAL BLOOD LOSS Hemoglobin 9.3, will monitor. Transfuse PRBCs f or hemoglobin less than 7.0. 4. Hyponatremia FROM FLUID OL - RESOLVE D, D/C IVF DUE TO FLUID OL, AND EATING NOW 5. Sepsis, POA - ABOVE, WILL NEED 28 DAYS OF IV ABX, HAS [employer] INSURANCE. Patient meets criteria for sepsis due to fever and leukocytosis, source abdominal cellulitis and abscess. Continue fluid resuscitation with IV normal saline, will treat with IV Zosyn as above. I SPENT 25 MINUTES ON REVIEWING CHART, LABS, ZULEIKA TS, MEDS, PROGRESS NOTES, TRT PLAN, AND DISCUSSION WITH THE PATIENT, AND HER N [place]. Electronically Signed by Mynor Hines MD on 05/13 at 1401 RPT #:[id number] END OF REPORT 2020-05-13 08:00:00-00:00 [facility] ([facility] Nephrology Progress Note REPORT#:[id number] REPORT STATUS: Signed DATE:05/13/20 TIME: 0800 PATIENT: LAKSHMI BATES UNIT #: [id number] ROOM/BED: [place] [address] : 60 AGE: 60 SEX: F ATTEND: Wan Marc DO ADM AUTHOR: Jonatan Virk MD * ALL edits or amendments must be made on the [employer]/computer document * Subjective Chief Complaint: Abdominal wall abscess/DARIAN Patient reports: Yes: complaints. Comments: Patient seen and evaluated, HPI no change from i nitial, feels okay Review of Systems Skin: Yes swelling Allergy/Immun: No hives, No itching Eyes: No redness, No discharge ENT: No ear drainage, No ear ringing Respiratory: No hemoptysis, No SOB Cardiovascular: No chest pain, No palpitations Objective General VS/I O: Vital Signs: Date Time Temp Pulse Resp B/P B/P Pulse O2 O2 F low FiO2 Mean Ox Delivery Rate 05/13 0720 37.2 63 18 145/80 101.4 96 Room air 05/13 0337 37.0 56 16 138/76 96.6 96 Room air 05/12 2304 37.2 52 16 155/80 105.3 97 Room air 05/12 1934 36.7 64 16 133/78 96.1 96 Room air 05/12 1625 37.2 60 17 145/74 97.3 96 Room air 05/12 1140 36.8 69 17 132/59 83.2 97 Room air 05/12 0817 36.8 73 17 149/77 101.2 96 Room air 24 hour I O ending at 0700: 05/13 0700 05/12 1900 Intake Total 300.00 698 Output Total Balance 300.00 698 Intake, IV 100.00 Intake, Oral 200 698 Number Voids 8 Medications Active Meds + DC'd Last 24 Hrs Potassium Chloride 10 MEQ BID PO Furosemide 20 MG BID 9A 5P IV Nystatin 1 APPLIC BID TOPICAL Sodium Chloride 10 ML BID IV Sodium Chloride 10 ML ASDIR PRN IV Hydrocodone Bitart/Acetaminophen 1 TAB Q4H PRN P RN PO Hydrocodone Bitart/Acetaminophen 1 TAB Q4H PRN P RN PO Ondansetron HCl 4 MG Q6H PRN PRN IV Sodium Chloride 10 ML ASDIR IV Progesterone 200 MG BEDTIME PO Enoxaparin Sodium 40 MG Q24H SUBQ (DA) Piperacillin Sod/Tazobactam Sod 3.375 GM Q8H IV Sodium Chloride 100 ML Al Hydrox/Mg Hydrox/Simethicone 30 ML Q4H PRN MD N PO Docusate Sodium 100 MG BID PRN PRN PO Hydralazine HCl 10 MG Q6H PRN PRN IV Morphine Sulfate 4 MG Q4H PRN PRN IV (DC) Ondansetron HCl 4 MG Q4H PRN PRN IV Physical Exam General appearance: alert, no acute distress Head/eyes: atraumatic, normocephalic ENT: normal nose Neck: supple/no meningismus Cardiovascular: normal heart sounds, no rub Respiratory: aerating well, no distress Abdomen: soft Genitourinary: no flank pain Extremities: pitting edema, non-tender Musculoskeletal: no CVA tenderness, no tenderene ss 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, normal speech Skin: dry, intact Results Findings/Data: Laboratory Tests 05/13 05/12 05/11 05/10 05/10 0345 0415 509 2011 905 Chemistry Sodium (134 - 147 mEq/L) 138 138 136 134 Potassium (3.4 - 5.0 mEq/L) 3.7 3.7 3.9 3.8 Chloride (100 - 108 mEq/L) 105 108 106 104 Carbon Dioxide (21 - 33 mEq/l) 22 21 22 22 Anion Gap (0 - 20) 15 13 12 12 BUN (7 - 18 mg/dL) 19 H 17 15 12 Creatinine (0.6 - 1.3 mg/dL) 2.7 H 2.5 H 2.3 H 1.7 H Glomerular Filtr Rate (80 - 90) 18.0 L 19.6 L 2 1.6 L 30.7 L Glucose (70 - 110 mg/dL) 111 H 115 H 116 H 159 H Calcium (8.0 - 10.5 mg/dL) 8.7 8.5 9.6 8.5 Phosphorus (2.5 - 4.9 MG/DL) 4.7 4.2 4.2 Magnesium (1.80 - 2.40 mg/dL) 2.10 2.22 2.29 Iron (35 - 150 mcg/dL) 25 L TIBC (260 - 445 mcg/dL) 220 L % Saturation (14 - 34 %) 11.4 L Unsat Iron Binding (mcg/dL) 195 Ferritin (11.0 - 306.8 ng/mL) 92.0 Vitamin B12 (193 - 986 pg/mL) 3984 H Laboratory Tests 05/10 2012 Toxicology Random Vancomycin (mcg/mL) 28.2 Laboratory Tests 05/100 1910 Urines Urine Color (YEL/STRAW) STRAW Urine Appearance (CLEAR) CLEAR Urine pH (5.0 - 7.0) 6.0 Ur Specific [place] (1.005 - 1.030) 1.002 L Urine Protein (NEGATIVE) NEGATIVE Urine Glucose (UA) (NEGATIVE) NEGATIVE Urine Ketones (NEGATIVE) NEGATIVE Urine Blood (NEGATIVE) NEGATIVE Urine Nitrite (NEGATIVE) NEGATIVE Urine Bilirubin (NEGATIVE) NEGATIVE Urine Urobilinogen (0.2 - 1.0 mg/dL) 0.2 Ur Leukocyte Esterase (NEGATIVE) NEGATIVE Urine RBC (0 - 3 RBC/HPF) 0-3 Urine WBC (0 - 3 WBC/HPF) 0-3 Ur Squamous Epith Cells (NONE SEEN /HPF) 0-5 Urine Bacteria (NONE SEEN /HPF) TRACE Ur Random Creatinine (mg/dL) 19.8 U Random Total Protein (mg/dL) 16 Ur Random Sodium (MEQ/L) 12 Recent Impressions: ULTRASOUND - US RETROPERITONEAL COM 05/11 1441 Report Impression - Status: SIGNED Entered: 05/11/2020 1447 IMPRESSION: 1. Normal evaluation of kidneys. 2. 3.5 cm right adrenal myelolipoma SL: [id number] Impression By: Lluvia Albrecht M.D. RADIOLOGY - XR SHOULDER 1 V RT 05/12 1340 Report Impression - Status: SIGNED Entered: 05/12/2020 1537 IMPRESSION: 1. Right upper extremity PICC noted terminating in the proximal SVC. SL: [id number] Impression By: [email or web address] - Chapito Cox M.D. Laboratory Tests 05/13 0345 Chemistry Sodium (134 - 147 mEq/L) 138 Potassium (3.4 - 5.0 mEq/L) 3.7 Chloride (100 - 108 mEq/L) 105 Carbon Dioxide (21 - 33 mEq/l) 22 Anion Gap (0 - 20) 15 BUN (7 - 18 mg/dL) 19 H Creatinine (0.6 - 1.3 mg/dL) 2.7 H Glomerular Filtr Rate (80 - 90) 18.0 L Glucose (70 - 110 mg/dL) 111 H Calcium (8.0 - 10.5 mg/dL) 8.7 Phosphorus (2.5 - 4.9 MG/DL) 4.7 Magnesium (1.80 - 2.40 mg/dL) 2.10 Diagnosis, Assessment Plan Free Text A P: Patient seen and evaluated, discussed with care team, images and laboratories reviewed. History of arrhythmia status post pacemaker plac ement History of abdominoplasty co mplicated by cellulitis and abdominal wall abscess, status post I D, was treated with vancomycin and Zosyn. Acute kidney injury: Possibilities include contr ast with her CT scan of the abdomen and pelvis and oral vancomycin. Will amairani ck random back level, check urinalysis, check urine protein creatinine ratio . Mild hyponatremia Significant anemia: We will check iron studies B 12. 05/11/2020 laboratory this m orning showed sodium 136, potassium 3.9, CO2 22, BUN 15, creatinine 2.3 continues to rise, vancomycin level 28 almost 20 hours after the last dose, her DARIAN is likely related to comb ination of contrast plus vancomycin toxicity, urinalysis negative, B12 wi thin normal limit, iron saturation 11% with a ferritin around 92. 05/12/2020 laboratory this m orning showed sodium 138, potassium 3.7, CO2 21, BUN 17, creatinine 2.5 up from 2.3 hopefully reaching plateau. We will continue to monitor closely 05/13/2020 laboratory this m ornkathy showed sodium 138, potassium 3.7, CO2 22, BUN /creatinine 19 and 2.7 continue to trend up slow ly. at 1224 RPT #:[id number] END OF REPORT 2020-05-12 13:21:00-00:00 [facility] ([facility]) Infectious Dis. Progress Note REPORT#:[id number] REPORT STATUS: Signed DATE:05/12/20 TIME: 1321 PATIENT: LAKSHMI BATES UNIT #: [id number] ROOM/BED: [address] : 60 AGE: 60 SEX: F ATTEND: Wan Marc DO ADM AUTHOR: Seamus Bower MD * ALL edits or amendments must be made on the [employer] document * Subjective Chief Complaint: F/U abdominal cellulitis Patient reports: No: cough, diarrhea, fever, headache, nausea, sh ortness of breath, vomiting. Portions of this section were scribed by Janis Sharpe on 05/12/20 at 1321 Objective General VS/I O: Last Documented: Result Date Time Pulse Ox 97 05/12 1140 B/P 132/59 05/12 1140 B/P Mean 83.2 05/12 1140 O2 Delivery Room air 05/12 1140 Temp 36.8 05/12 1140 Pulse 69 05/12 1140 Resp 17 05/12 1140 FiO2 21 05/09 2314 O2 Flow Rate 9 05/09 1237 Vital Signs Date Temp Pulse Resp B/P B/P Mean Pulse Ox FiO2 05/11-05/12 36.5-37.1 65-74 16-17 132-158/59-78 83.2-102.7 95-97 24 hour I O ending at 0700: 05/12 0700 05/11 1900 Intake Total 450.00 440 Output Total Balance 450.00 440 Intake, IV 200.00 Intake, Oral 250 440 Number Voids 6 1 PATIENT WEIGHT: Weight (lb): 186 Weight (oz): 15.23 Weight (kg): 84.800 Physical Exam General appearance: alert, awake, oriented Wound/incision: Location: abdominal surgical incision right lower abdomen surigcal incision +draining , packing in place mid lower abdominal surgical incision Head/Eyes: atraumatic, clear cornea, EOMI, mohsen l conjunctiva/sclera, normal eyelids/periorb, normocephalic, PERRL ENT: normal dentition, normal nose, normal phary nx, normal sinus Neck: full range of motion, non-tender, normal thyroid, supple/no meningismus, no bruit/NL carotids, no JVD, no masses or swell ing, no lymphadenopathy Cardiovascular: regular rate rhythm Respiratory: clear to auscultation, no distress Abdomen: non-tender, soft, n o distention, no guarding, no mass/organomegaly, no rebound Extremities: moves all, normal capillary refill, normal sensory Musculoskeletal: full range of motion Considered stroke alert: no Skin: dry, intact Results Findings/Data: Laboratory Tests 05/12 0415 Chemistry Sodium (134 - 147 mEq/L) 138 Potassium (3.4 - 5.0 mEq/L) 3.7 Chloride (100 - 108 mEq/L) 108 Carbon Dioxide (21 - 33 mEq/l) 21 Anion Gap (0 - 20) 13 BUN (7 - 18 mg/dL) 17 Creatinine (0.6 - 1.3 mg/dL) 2.5 H Glomerular Filtr Rate (80 - 90) 19.6 L Glucose (70 - 110 mg/dL) 115 H Calcium (8.0 - 10.5 mg/dL) 8.5 Phosphorus (2.5 - 4.9 MG/DL) 4.2 Magnesium (1.80 - 2.40 mg/dL) 2.22 Microbiology: 05/09 1243 ABDOMINAL: Wound Culture - COMP GROUP B STREPTOCOCCUS 05/09 124 ABDOMINAL: Anaerobic Culture - COMP 05/09 124 ABDOMINAL: Gram Stain - COMP 05/08 1125 BLOOD: Blood Culture - RES Active Meds + DC'd Last 24 Hrs Potassium Chloride 10 MEQ BID PO Furosemide 20 MG BID 9A 5P IV Nystatin 1 APPLIC BID TOPICAL Sodium Chloride 10 ML BID IV Sodium Chloride 10 ML ASDIR PRN IV Hydrocodone Bitart/Acetaminophen 1 TAB Q4H PRN P RN PO Hydrocodone Bitart/Acetaminophen 1 TAB Q4H PRN P RN PO Ondansetron HCl 4 MG Q6H PRN PRN IV Sodium Chloride 10 ML ASDIR IV Progesterone 200 MG BEDTIME PO Enoxaparin Sodium 40 MG Q24H SUBQ (DA) Piperacillin Sod/Tazobactam Sod 3.375 GM Q8H IV Sodium Chloride 100 ML Al Hydrox/Mg Hydrox/Simethicone 30 ML Q4H PRN MD N PO Docusate Sodium 100 MG BID PRN PRN PO Hydralazine HCl 10 MG Q6H PRN PRN IV Morphine Sulfate 4 MG Q4H PRN PRN IV Ondansetron HCl 4 MG Q4H PRN PRN IV Radiology data: Recent Impressions: ULTRASOUND - US RETROPERITONEAL COM 05/11 1441 Report Impression - Status: SIGNED Entered: 05/11/20201446 IMPRESSION: 1. Normal evaluation of kidneys. 2. 3.5 cm right adrenal myelolipoma SL: [id number] Impression By: Lluvia Albrecht M.D. Portions of this section were scribed by Janis Sharpe on 05/12/20 at 1321 Diagnosis, Assessment Plan Problem List/A P: 1. Sepsis 2. Abdominal abscess 3. Cellulitis, abdominal wall Free Text A P: 1. Sepsis sec to abdominal abscess 2. Abdominal absecess s/p I D; cx E.coli and enterococcus sp cont on Zosyn 3.375gm IV Q8hrs day #4 out of 28 days Picc line ordered ecommerce merchandising manager to arrange IV a bx thru home health ; Zosyn 3.375gm IV Q8hrs for 28 days 3. S/p recent abdominoplasty 4. Darian 5. Leukocytosis Portions of this section were scribed by Janis Sharpe on 05/12/20 at 1321 at 0940 RPT #:[id number] END OF REPORT 2020-05-12 10:17:00-00:00 [facility] ([facility]) Hospitalist Progress Note REPORT#:[id number] REPORT STATUS: Signed DATE:05/12/20 TIME: 101 PATIENT: LAKSHMI BATES UNIT #: [id number] ROOM/BED: 5509-1 : 60 AGE: 60 SEX: F ATTEND: Wan Marc DO ADM AUTHOR: Mynor Hines MD * ALL edits or amendments must be made on the [employer]/computer document * Subjective Chief Complaint: MY LEG SWELLLINGS, I'M NOT GOING HOME UN TIL MY LEGS, KIDNEYS ARE BETTER, AND I LIVE 1-2 HOURS AWAY AND NOT ABLE TO SEE DOCTORS HERE. THUS I OFFERED HER LTAC EVAL WHERE SHE CAN HAVE LABS, W/C, ABX GIVEN FOR LONGER IF HER INSURANCE APPROVES. Objective General Medications: Active Meds + DC'd Last 24 Hrs Potassium Chloride 10 MEQ BID PO (UNV) Furosemide 20 MG BID 9A 5P IV (UNVr) Nystatin 1 APPLIC BID TOPICAL Sodium Chloride 10 ML BID IV Sodium Chloride 10 ML ASDIR PRN IV Hydrocodone Bitart/Acetaminophen 1 TAB Q4H PRN P RN PO Hydrocodone Bitart/Acetaminophen 1 TAB Q4H PRN P RN PO Ondansetron HCl 4 MG Q6H PRN PRN IV Sodium Chloride 10 ML ASDIR IV Progesterone 200 MG BEDTIME PO Enoxaparin Sodium 40 MG Q24H SUBQ (DA) Piperacillin Sod/Tazobactam Sod 3.375 GM Q8H IV Sodium Chloride 100 ML Al Hydrox/Mg Hydrox/Simethicone 30 ML Q4H PRN MD N PO Docusate Sodium 100 MG BID PRN PRN PO Hydralazine HCl 10 MG Q6H PRN PRN IV Morphine Sulfate 4 MG Q4H PRN PRN IV Ondansetron HCl 4 MG Q4H PRN PRN IV Physical Exam General appearance: obese, alert, awake Neck: no JVD Cardiovascular: normal heart sounds, regular rat e rhythm Respiratory: clear to auscultation Abdomen: obese, tenderness, SUPRAPUBIC WOUND PARTIALLY SEEN WITH TRACKING HOLE, AND PARTLY DRESSED. Extremities: no edema, JUST FAT EDEMA ON LEGS 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, oriented X 3, normal speech, n o motor deficits Psychiatry: anxious Results Findings/Data: Laboratory Tests 05/12 4338 Chemistry Sodium (134 - 147 mEq/L) 138 Potassium (3.4 - 5.0 mEq/L) 3.7 Chloride (100 - 108 mEq/L) 108 Carbon Dioxide (21 - 33 mEq/l) 21 Anion Gap (0 - 20) 13 BUN (7 - 18 mg/dL) 17 Creatinine (0.6 - 1.3 mg/dL) 2.5 H Glomerular Filtr Rate (80 - 90) 19.6 L Glucose (70 - 110 mg/dL) 115 H Calcium (8.0 - 10.5 mg/dL) 8.5 Phosphorus (2.5 - 4.9 MG/DL) 4.2 Magnesium (1.80 - 2.40 mg/dL) 2.22 Radiology data: Recent Impressions: ULTRASOUND - US RETROPERITONEAL COM 05/11 1441 Report Impression - Status: SIGNED Entered: 05/11/2020 277 IMPRESSION: 1. Normal evaluation of kidneys. 2. 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 Diagnosis, Assessment Plan Hospital course to date: 1. POST OP WOUND INFECTION WITH POLYMICROBIAL (ENTEROCOCCUS/E.COLI/STREP GRP B) , S/P DEBRIDEMENT (FAT NECROSIS/PURULENCE IN OP REPORT) - CONT ZOSYN AT RENAL DOSE, ID/GS SEEN, NOW HESITAE TO GO HOME , THUS ASK CM FOR LTAC EVAL, PICC LINE Will start patient on IV Zo syn due to cellulitis and abscess of abdominal wall. 2. ARF DUE TO SEPSIS/ATN, V ANC AND CONTRAST-INDUCED - FROM 0.7 TO 2.1, 2.3 2.5 NOW, HOLD VANC, RENAL SEEN, RENAL US WITH RIGHT ADRENAL MYELOLIPOMA, ALSO FLUID OL FROM INITIAL IVF, GIVE LASIX 20 IV BID X 4DOS ES, DISCUSSED WITH DR. VIRK AND OK WITH SMALL LASIX X4. Antibiotics as DOSE above. General surgery consulted for drainage of abdominal abscess. Will need to send fluid for Gram stain and culture 3. Anemia OF CD, RECENT BLOOD LOSS FROM ABDOMIN OPLASTY - STABLE, NL IRON STUDIES S/O ACUTE SURGICAL BLOOD LOSS Hemoglobin 9.3, will monitor. Transfuse PRBCs f or hemoglobin less than 7.0. 4. Hyponatremia FROM FLUID OL - RESOLVE D, D/C IVF DUE TO FLUID OL, AND EATING NOW 5. Sepsis, POA - ABOVE, WILL NEED 28 DAYS OF IV ABX SETUP BY CM, AND PICC, HAS [employer] INSURANCE. Patient meets criteria for sepsis due to fever and leukocytosis, source abdominal cellulitis and abscess. Continue fluid resuscitation with IV normal saline, will treat with IV Zosyn as above. I SPENT 35 MINUTES ON REVIEWING CHART, LABS, ZULEIKA TS, MEDS, PROGRESS NOTES, TRT PLAN, AND DISCUSSION WITH THE PATIENT, AND DR. Nora REYES. Problem List/A P: 1. Cellulitis, abdominal wall Will start patient on IV Zo syn due to cellulitis and abscess of abdominal wall. 2. Abdominal abscess Antibiotics as above. General surgery consulted for drainage of abdominal abscess. Will need to send fluid for Gram stain and culture 3. Anemia Hemoglobin 9.3, will monitor. Transfuse PRBCs f or hemoglobin less than 7.0. 4. Hyponatremia 5. Sepsis Patient meets criteria for sepsis due to fever and leukocytosis, source abdominal cellulitis and abscess. Continue fluid resuscitation with IV normal saline, will treat with IV Zosyn as above. Electronically Signed by Mynor Hines MD on 05/12 at 1023 [facility] #:[id number] END OF REPORT 2020-05-12 08:30:00-00:00 [facility] ([facility] Nephrology Progress Note REPORT#:[id number] REPORT STATUS: Signed DATE:05/12/20 TIME: 829 PATIENT: LAKSHMI BATES UNIT #: [id number] ROOM/BED: [address] : 60 AGE: 60 SEX: F ATTEND: Wan Marc DO ADM AUTHOR: Jonatan Virk MD * ALL edits or amendments must be made on the [employer]/computer document * Subjective Chief Complaint: Abdominal wall abscess/DARIAN Patient reports: Yes: complaints. Comments: Patient seen and evaluated, HPI no change from i nitial, feels okay Review of Systems Constitutional: Yes chills, Yes fever Skin: Yes swelling Allergy/Immun: No hives, No itching Eyes: No redness, No discharge ENT: No ear drainage, No ear ringing Respiratory: No hemoptysis, No SOB Cardiovascular: No chest pain, No palpitations Objective General VS/I O: Vital Signs: Date Time Temp Pulse Resp B/P B/P Pulse O2 O2 F low FiO2 Mean Ox Delivery Rate 05/12 0817 36.8 73 17 149/77 101.2 96 Room air 05/12 0352 36.5 74 16 140/61 86.9 96 Room air 05/11 2353 36.5 66 16 158/75 102.7 95 Room air 05/11 1911 37.1 65 16 133/77 95.8 95 Room air 05/11 1624 37.1 65 17 135/78 96.8 97 Room air 05/11 1209 37.0 62 17 136/82 99.6 96 Room air 05/11 1113 36.8 61 18 128/77 93.6 97 24 hour I O ending at 0700: 05/12 0700 05/11 1900 Intake Total 450.00 440 Output Total Balance 450.00 440 Intake, IV 200.00 Intake, Oral 250 440 Number Voids 6 1 Medications Active Meds + DC'd Last 24 Hrs Nystatin 1 APPLIC BID TOPICAL Sodium Chloride 10 ML BID IV Sodium Chloride 10 ML ASDIR PRN IV Hydrocodone Bitart/Acetaminophen 1 TAB Q4H PRN P RN PO Hydrocodone Bitart/Acetaminophen 1 TAB Q4H PRN P RN PO Ondansetron HCl 4 MG Q6H PRN PRN IV Sodium Chloride 10 ML ASDIR IV Progesterone 200 MG BEDTIME PO Enoxaparin Sodium 40 MG Q24H SUBQ (DA) Piperacillin Sod/Tazobactam Sod 3.375 GM Q8H IV Sodium Chloride 100 ML Al Hydrox/Mg Hydrox/Simethicone 30 ML Q4H PRN MD N PO Docusate Sodium 100 MG BID PRN PRN PO Hydralazine HCl 10 MG Q6H PRN PRN IV Morphine Sulfate 4 MG Q4H PRN PRN IV Ondansetron HCl 4 MG Q4H PRN PRN IV Physical Exam General appearance: alert, no acute distress Head/eyes: atraumatic, normocephalic ENT: normal nose Neck: supple/no meningismus Cardiovascular: normal heart sounds, no rub Respiratory: aerating well, no distress Abdomen: soft Genitourinary: no flank pain Extremities: pitting edema, non-tender Musculoskeletal: no CVA tenderness, no tenderene ss 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, normal speech Skin: dry, intact Results Findings/Data: Laboratory Tests 05/12 Chemistry Sodium (134 - 147 mEq/L) 138 136 134 134 Potassium (3.4 - 5.0 mEq/L) 3.7 3.9 3.8 4.0 Chloride (100 - 108 mEq/L) 108 106 104 105 Carbon Dioxide (21 - 33 mEq/l) 21 22 22 22 Anion Gap (0 - 20) 13 12 12 11 BUN (7 - 18 mg/dL) 17 15 12 12 Creatinine (0.6 - 1.3 mg/dL) 2.5 H 2.3 H 1.7 H 1.6 H Glomerular Filtr Rate (80 - 90) 19.6 L 21.6 L 3 0.7 L 32.9 L Glucose (70 - 110 mg/dL) 115 H 116 H 159 H 139 H Calcium (8.0 - 10.5 mg/dL) 8.5 9.6 8.5 8.9 Phosphorus (2.5 - 4.9 MG/DL) 4.2 4.2 Magnesium (1.80 - 2.40 mg/dL) 2.22 2.29 Iron (35 - 150 mcg/dL) 25 L TIBC (260 - 445 mcg/dL) 220 L % Saturation (14 - 34 %) 11.4 L Unsat Iron Binding (mcg/dL) 195 Ferritin (11.0 - 306.8 ng/mL) 92.0 Vitamin B12 (193 - 986 pg/mL) 3984 H Laboratory Tests 05/10 05 Hematology WBC (4.5 - 11.0 x10 3/uL) 16.4 H RBC (3.54 - 5.02 x10 6/uL) 2.73 L Hgb (11.0 - 15.0 g/dL) 7.5 L Hct (33.0 - 45.0 %) 24.5 L MCV (81.0 - 99.0 fL) 89.7 MCH (27.0 - 33.0 pg) 27.5 MCHC (33.0 - 37.0 g/dL) 30.6 L RDW (11.5 - 14.5 %) 14.6 H Plt Count (150 - 400 x10 3/uL) 508 H MPV (7.0 - 9.0 fL) 9.7 H Neut % (Auto) (56.0 - 77.0 %) 86.5 H Lymph % (Auto) (14.0 - 32.0 %) 6.9 L [place] % (Auto) (4.8 - 9.0 %) 4.4 L Eos % (Auto) (0.3 - 3.7 %) 0.1 L Baso % (Auto) (0.0 - 2.0 %) 0.1 Neut # (Auto) (2.0 - 7.6 x10 3/uL) 14.21 H Lymph # (Auto) (1.0 - 3.8 x10 3/uL) 1.14 [place] # (Auto) (0.1 - 0.8 x10 3/uL) 0.73 Eos # (Auto) (0.0 - 0.2 x10 3/uL) 0.01 Baso # (Auto) (0.0 - 0.2 x10 3/uL) 0.02 Abs Immat Gran (auto) (0.00 - 0.03 x10 3/uL) 0. 33 H Add Manual Diff NO Immature Gran % (0.0 - 2.0 %) 2.0 Nucleated RBC % (0 - 0 %) 0.0 Nucleated RBCs # (Man) (0.0 - 0.1 x10 3/uL) 0.0 0 Laboratory Tests 05/10 2012 Toxicology Random Vancomycin (mcg/mL) 28.2 Laboratory Tests 05/100 Urines Urine Color (YEL/STRAW) STRAW Urine Appearance (CLEAR) CLEAR Urine pH (5.0 - 7.0) 6.0 Ur Specific [place] (1.005 - 1.030) 1.002 L Urine Protein (NEGATIVE) NEGATIVE Urine Glucose (UA) (NEGATIVE) NEGATIVE Urine Ketones (NEGATIVE) NEGATIVE Urine Blood (NEGATIVE) NEGATIVE Urine Nitrite (NEGATIVE) NEGATIVE Urine Bilirubin (NEGATIVE) NEGATIVE Urine Urobilinogen (0.2 - 1.0 mg/dL) 0.2 Ur Leukocyte Esterase (NEGATIVE) NEGATIVE Urine RBC (0 - 3 RBC/HPF) 0-3 Urine WBC (0 - 3 WBC/HPF) 0-3 Ur Squamous Epith Cells (NONE SEEN /HPF) 0-5 Urine Bacteria (NONE SEEN /HPF) TRACE Ur Random Creatinine (mg/dL) 19.8 U Random Total Protein (mg/dL) 16 Ur Random Sodium (MEQ/L) 12 Recent Impressions: ULTRASOUND - US RETROPERITONEAL COM 05/11 144 Report Impression - Status: SIGNED Entered: 05/11/2020 5787 IMPRESSION: 1. Normal evaluation of kidneys. 2. 3.5 cm right adrenal myelolipoma SL: [id number] Impression By: Lluvia Albrecht M.D. Laboratory Tests 05/12 7797 Chemistry Sodium (134 - 147 mEq/L) 138 Potassium (3.4 - 5.0 mEq/L) 3.7 Chloride (100 - 108 mEq/L) 108 Carbon Dioxide (21 - 33 mEq/l) 21 Anion Gap (0 - 20) 13 BUN (7 - 18 mg/dL) 17 Creatinine (0.6 - 1.3 mg/dL) 2.5 H Glomerular Filtr Rate (80 - 90) 19.6 L Glucose (70 - 110 mg/dL) 115 H Calcium (8.0 - 10.5 mg/dL) 8.5 Phosphorus (2.5 - 4.9 MG/DL) 4.2 Magnesium (1.80 - 2.40 mg/dL) 2.22 Diagnosis, Assessment Plan Free Text A P: Patient seen and evaluated, discussed with care team, images and laboratories reviewed. History of arrhythmia status post pacemaker plac ement History of abdominoplasty co mplicated by cellulitis and abdominal wall abscess, status post I D, was treated with vancomycin and Zosyn. Acute kidney injury: Possibilities include contr ast with her CT scan of the abdomen and pelvis and oral vancomycin. Will amairani ck random back level, check urinalysis, check urine protein creatinine ratio . Mild hyponatremia Significant anemia: We will check iron studies B 12. 05/11/2020 laboratory this m orning showed sodium 136, potassium 3.9, CO2 22, BUN 15, creatinine 2.3 continues to rise, vancomycin level 28 almost 20 hours after the last dose, her DARIAN is likely related to comb ination of contrast plus vancomycin toxicity, urinalysis negative, B12 wi thin normal limit, iron saturation 11% with a ferritin around 92. 05/12/2020 laboratory this m orning showed sodium 138, potassium 3.7, CO2 21, BUN 17, creatinine 2.5 up from 2.3 hopefully reaching plateau. We will continue to monitor closely at 1147 RPT #:[id number] END OF REPORT 2020-05-11 16:20:00-00:00 [facility] ([facility]) Clinical Note REPORT#:[id number] REPORT STATUS: Signed DATE:05/11/20 TIME: 1620 PATIENT: LAKSHMI BATES UNIT #: [id number] ROOM/BED: [place] [address] : 60 AGE: 60 SEX: F ATTEND: Wan Marc DO ADM AUTHOR: Seamus Bower MD * ALL edits or amendments must be made on the [employer] document * Clinical Note Note: Pt gone for a test Portions of this section were scribed by Janis Sharpe on 05/11/20 at 1620 at 2027 RPT #:[id number] END OF REPORT 2020-05-11 12:39:00-00:00 [facility] ([facility]) General Surgery Progress Note REPORT#:[id number] REPORT STATUS: Signed DATE:05/11/20 TIME: 1239 PATIENT: LAKSHMI BATES UNIT #: [id number] ROOM/BED: [place] [address] : 60 AGE: 60 SEX: F ATTEND: Brandon Marc DO ADM AUTHOR: Dominga Child * ALL edits or amendments must be made on the [employer] document * General Date of surgery: 05/09/20 Status post: I D abdominal wall abscess Subjective HPI: Feeling better. Pain controlled. Afebrile. Patient reports: Yes: ambulating, feeling better, pain controlled , tolerating diet. No: fever, nausea, vomiting. Objective General VS/I O: Last Documented: Result Date Time Pulse Ox 96 05/11 1209 B/P 136/82 05/11 1209 B/P Mean 99.6 05/11 1209 O2 Delivery Room air 05/11 1209 Temp 37.0 05/11 1209 Pulse 62 05/11 1209 Resp 17 05/11 1209 FiO2 21 05/09 2314 O2 Flow Rate 9 05/09 1237 Vital Signs Date Temp Pulse Resp B/P B/P Mean Pulse Ox FiO2 05/10-05/11 36.4-37.4 55-67 16-18 117-150/68-87 84.1-106.1 94-98 24 hour I O ending at 0700: 05/11 0700 05/10 1900 Intake Total 340.00 480 Output Total Balance 340.00 480 Intake, IV 100.00 Intake, Oral 240 480 Number Voids 3 PATIENT WEIGHT: Weight (lb): 186 Weight (oz): 15.23 Weight (kg): 84.800 Medications: Active Meds + DC'd Last 24 Hrs Sodium Chloride 10 ML BID IV Lidocaine HCl 5 ML ONCE ONE LOCAL (DC) Sodium Chloride 10 ML ASDIR PRN IV Hydrocodone Bitart/Acetaminophen 1 TAB Q4H PRN P RN PO Hydrocodone Bitart/Acetaminophen 1 TAB Q4H PRN P RN PO Ondansetron HCl 4 MG Q6H PRN PRN IV Sodium Chloride 10 ML ASDIR IV Vancomycin HCl 1,250 MG Q12H IV (DC) Sodium Chloride 250 ML Progesterone 200 MG BEDTIME PO Miscellaneous Information 1 EACH ASDIR IV (DC) Enoxaparin Sodium 40 MG Q24H SUBQ (DA) Piperacillin Sod/Tazobactam Sod 3.375 GM Q8H IV Sodium Chloride 100 ML Al Hydrox/Mg Hydrox/Simethicone 30 ML Q4H PRN MD N PO Docusate Sodium 100 MG BID PRN PRN PO Hydralazine HCl 10 MG Q6H PRN PRN IV Morphine Sulfate 4 MG Q4H PRN PRN IV Ondansetron HCl 4 MG Q4H PRN PRN IV Physical Exam General appearance: alert, awake, oriented, no a cute distress, pleasant, conversational, mental status normal, no respira tory distress Wound/incision: Location: lower abdomen Site condition: drainage, dressing stained, loraine thema, no ecchymosis HEENT: atraumatic, normocephalic Respiratory: no distress Abdomen: tenderness (appropriate), soft, no dist ention Extremities: moves all Musculoskeletal: normal inspection 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, oriented x 3, normal speech Considered stroke alert: no Skin: dry, intact Psychiatry: normal affect, normal judgment/insig ht, normal mood Results Findings/Data: Laboratory Tests 05/11/2010: [Embedded Image Not Available] Laboratory Tests 05/11 Chemistry Sodium (134 - 147 mEq/L) 136 Potassium (3.4 - 5.0 mEq/L) 3.9 Chloride (100 - 108 mEq/L) 106 Carbon Dioxide (21 - 33 mEq/l) 22 Anion Gap (0 - 20) 12 BUN (7 - 18 mg/dL) 15 Creatinine (0.6 - 1.3 mg/dL) 2.3 H Glomerular Filtr Rate (80 - 90) 21.6 L Glucose (70 - 110 mg/dL) 116 H Calcium (8.0 - 10.5 mg/dL) 9.6 Phosphorus (2.5 - 4.9 MG/DL) 4.2 Magnesium (1.80 - 2.40 mg/dL) 2.29 Iron (35 - 150 mcg/dL) 25 L TIBC (260 - 445 mcg/dL) 220 L % Saturation (14 - 34 %) 11.4 L Unsat Iron Binding (mcg/dL) 195 Ferritin (11.0 - 306.8 ng/mL) 92.0 Vitamin B12 (193 - 986 pg/mL) 3984 H Laboratory Tests 05/10 2012 Toxicology Random Vancomycin (mcg/mL) 28.2 Laboratory Tests 05/10 05/10 1910 1910 Urines Urine Color (YEL/STRAW) STRAW Urine Appearance (CLEAR) CLEAR Urine pH (5.0 - 7.0) 6.0 Ur Specific [place] (1.005 - 1.030) 1.002 L Urine Protein (NEGATIVE) NEGATIVE Urine Glucose (UA) (NEGATIVE) NEGATIVE Urine Ketones (NEGATIVE) NEGATIVE Urine Blood (NEGATIVE) NEGATIVE Urine Nitrite (NEGATIVE) NEGATIVE Urine Bilirubin (NEGATIVE) NEGATIVE Urine Urobilinogen (0.2 - 1.0 mg/dL) 0.2 Ur Leukocyte Esterase (NEGATIVE) NEGATIVE Urine RBC (0 - 3 RBC/HPF) 0-3 Urine WBC (0 - 3 WBC/HPF) 0-3 Ur Squamous Epith Cells (NONE SEEN /HPF) 0-5 Urine Bacteria (NONE SEEN /HPF) TRACE Ur Random Creatinine (mg/dL) 19.8 U Random Total Protein (mg/dL) 16 Ur Random Sodium (MEQ/L) 12 Results: labs reviewed Diagnosis, Assessment Plan Problem List/A P: 1. Abdominal abscess 2. Cellulitis, abdominal wall Free Text A P: Doing well Wound cultures noted Continue abx per ID - IV Zosyn. Local wound care, Change packing daily. consult wound care nurse Diet as tolerated DARIAN - Renal consulted. Off Vanc, Renal US ordere d Ok to d/c home when cleared by attending/other c onsultants Dr. Hopper will be covering ov er the holiday if there are any questions/concerns. Orders: Procedure Date/time Status Wound Care 05/11 816 Active Plan discussed with: patient, nurse Electronically Signed by Dominga Child on at 1242 RPT #:[id number] END OF REPORT 2020-05-11 12:39:00-00:00 [facility] General Surgery Progress Note REPORT#:[id number] REPORT STATUS: Signed DATE:05/11/20 TIME: 1239 PATIENT: LAKSHMI BATES UNIT #: [id number] ROOM/BED: 5509-1 : 60 AGE: 60 SEX: F ATTEND: Wan Marc DO ADM AUTHOR: Dominga Child * ALL edits or amendments must be made on the [employer]/computer document * Dominga Child 05/11/20 1239: General Date of surgery: 05/09/20 Status post: I D abdominal wall abscess Subjective HPI: Feeling better. Pain controlled. Afebrile. Patient reports: Yes: ambulating, feeling better, pain controlled , tolerating diet. No: fever, nausea, vomiting. Objective General VS/I O: Last Documented: Result Date Time Pulse Ox 96 05/11 120 B/P 136/82 05/11 1209 B/P Mean 99.6 05/11 120 O2 Delivery Room air 05/11 1209 Temp 37.0 12/23 1209 Pulse 62 05/11 1209 Resp 17 05/11 1209 FiO2 21 05/09 2314 O2 Flow Rate 9 05/09 1237 Vital Signs Date Temp Pulse Resp B/P B/P Mean Pulse Ox FiO2 05/10-05/11 36.4-37.4 55-67 16-18 117-150/68-87 84.1-106.1 94-98 24 hour I O ending at 0700: 05/11 0700 05/10 1900 Intake Total 340.00 480 Output Total Balance 340.00 480 Intake, IV 100.00 Intake, Oral 240 480 Number Voids 3 PATIENT WEIGHT: Weight (lb): 186 Weight (oz): 15.23 Weight (kg): 84.800 Medications: Active Meds + DC'd Last 24 Hrs Sodium Chloride 10 ML BID IV Lidocaine HCl 5 ML ONCE ONE LOCAL (DC) Sodium Chloride 10 ML ASDIR PRN IV Hydrocodone Bitart/Acetaminophen 1 TAB Q4H PRN P RN PO Hydrocodone Bitart/Acetaminophen 1 TAB Q4H PRN P RN PO Ondansetron HCl 4 MG Q6H PRN PRN IV Sodium Chloride 10 ML ASDIR IV Vancomycin HCl 1,250 MG Q12H IV (DC) Sodium Chloride 250 ML Progesterone 200 MG BEDTIME PO Miscellaneous Information 1 EACH ASDIR IV (DC) Enoxaparin Sodium 40 MG Q24H SUBQ (DA) Piperacillin Sod/Tazobactam Sod 3.375 GM Q8H IV Sodium Chloride 100 ML Al Hydrox/Mg Hydrox/Simethicone 30 ML Q4H PRN MD N PO Docusate Sodium 100 MG BID PRN PRN PO Hydralazine HCl 10 MG Q6H PRN PRN IV Morphine Sulfate 4 MG Q4H PRN PRN IV Ondansetron HCl 4 MG Q4H PRN PRN IV Physical Exam General appearance: alert, awake, oriented, no a cute distress, pleasant, conversational, mental status normal, no respira tory distress Wound/incision: Location: lower abdomen Site condition: drainage, dressing stained, loraine thema, no ecchymosis HEENT: atraumatic, normocephalic Respiratory: no distress Abdomen: tenderness (appropriate), soft, no dist ention Extremities: moves all Musculoskeletal: normal inspection 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, oriented x 3, normal speech Considered stroke alert: no Skin: dry, intact Psychiatry: normal affect, normal judgment/insig ht, normal mood Results Findings/Data: Laboratory Tests 05/11/20509: [Embedded Image Not Available] Laboratory Tests 05/11 Chemistry Sodium (134 - 147 mEq/L) 136 Potassium (3.4 - 5.0 mEq/L) 3.9 Chloride (100 - 108 mEq/L) 106 Carbon Dioxide (21 - 33 mEq/l) 22 Anion Gap (0 - 20) 12 BUN (7 - 18 mg/dL) 15 Creatinine (0.6 - 1.3 mg/dL) 2.3 H Glomerular Filtr Rate (80 - 90) 21.6 L Glucose (70 - 110 mg/dL) 116 H Calcium (8.0 - 10.5 mg/dL) 9.6 Phosphorus (2.5 - 4.9 MG/DL) 4.2 Magnesium (1.80 - 2.40 mg/dL) 2.29 Iron (35 - 150 mcg/dL) 25 L TIBC (260 - 445 mcg/dL) 220 L % Saturation (14 - 34 %) 11.4 L Unsat Iron Binding (mcg/dL) 195 Ferritin (11.0 - 306.8 ng/mL) 92.0 Vitamin B12 (193 - 986 pg/mL) 3984 H Laboratory Tests 05/10 2012 Toxicology Random Vancomycin (mcg/mL) 28.2 Laboratory Tests 05/10 1910 Urines Urine Color (YEL/STRAW) STRAW Urine Appearance (CLEAR) CLEAR Urine pH (5.0 - 7.0) 6.0 Ur Specific [place] (1.005 - 1.030) 1.002 L Urine Protein (NEGATIVE) NEGATIVE Urine Glucose (UA) (NEGATIVE) NEGATIVE Urine Ketones (NEGATIVE) NEGATIVE Urine Blood (NEGATIVE) NEGATIVE Urine Nitrite (NEGATIVE) NEGATIVE Urine Bilirubin (NEGATIVE) NEGATIVE Urine Urobilinogen (0.2 - 1.0 mg/dL) 0.2 Ur Leukocyte Esterase (NEGATIVE) NEGATIVE Urine RBC (0 - 3 RBC/HPF) 0-3 Urine WBC (0 - 3 WBC/HPF) 0-3 Ur Squamous Epith Cells (NONE SEEN /HPF) 0-5 Urine Bacteria (NONE SEEN /HPF) TRACE Ur Random Creatinine (mg/dL) 19.8 U Random Total Protein (mg/dL) 16 Ur Random Sodium (MEQ/L) 12 Results: labs reviewed Diagnosis, Assessment Plan Problem List/A P: 1. Abdominal abscess 2. Cellulitis, abdominal wall Free Text A P: Doing well Wound cultures noted Continue abx per ID - IV Zosyn. Local wound care, Change packing daily. consult wound care nurse Diet as tolerated DARIAN - Renal consulted. Off Vanc, Renal US ordere d Ok to d/c home when cleared by attending/other c onsultants Dr. Hopper will be covering ov er the holiday if there are any questions/concerns. Orders: Procedure Date/time Status Wound Care 05/11 816 Active Plan discussed with: patient, nurse Yo,In Emmanuelle 05/12/20 0850: Attestations Physician Attestation Agree w/findings plan: I have personally interviewe d and examined the pt. All charts, labs and imaging studies were reviewed. Her w ound looks good. Less pain per pt. I agree with the PA s exam and plan. Electronically Signed by Dominga Child on at 1242 RPT #:[id number] END OF REPORT 2020-05-11 12:39:00-00:00 [facility] General Surgery Progress Note REPORT#:[id number] REPORT STATUS: Signed DATE:05/11/20 TIME: 123 PATIENT: LAKSHMI BATES UNIT #: [id number] ROOM/BED: [place] [address] : 60 AGE: 60 SEX: F ATTEND: Wan Marc DO ADM AUTHOR: Dominga Child * ALL edits or amendments must be made on the [employer]/computer document * Dominga Child 05/11/20 1239: General Date of surgery: 05/09/20 Status post: I D abdominal wall abscess Subjective HPI: Feeling better. Pain controlled. Afebrile. Patient reports: Yes: ambulating, feeling better, pain controlled , tolerating diet. No: fever, nausea, vomiting. Objective General VS/I O: Last Documented: Result Date Time Pulse Ox 96 05/11 1209 B/P 136/82 05/11 1209 B/P Mean 99.6 05/11 1209 O2 Delivery Room air 05/11 1209 Temp 37.0 05/11 1209 Pulse 62 05/11 1209 Resp 17 05/11 1209 FiO2 21 05/09 2314 O2 Flow Rate 9 05/09 1237 Vital Signs Date Temp Pulse Resp B/P B/P Mean Pulse Ox FiO2 05/10-05/11 36.4-37.4 55-67 16-18 117-150/68-87 84.1-106.1 94-98 24 hour I O ending at 0700: 05/11 0700 05/10 1900 Intake Total 340.00 480 Output Total Balance 340.00 480 Intake, IV 100.00 Intake, Oral 240 480 Number Voids 3 PATIENT WEIGHT: Weight (lb): 186 Weight (oz): 15.23 Weight (kg): 84.800 Medications: Active Meds + DC'd Last 24 Hrs Sodium Chloride 10 ML BID IV Lidocaine HCl 5 ML ONCE ONE LOCAL (DC) Sodium Chloride 10 ML ASDIR PRN IV Hydrocodone Bitart/Acetaminophen 1 TAB Q4H PRN P RN PO Hydrocodone Bitart/Acetaminophen 1 TAB Q4H PRN P RN PO Ondansetron HCl 4 MG Q6H PRN PRN IV Sodium Chloride 10 ML ASDIR IV Vancomycin HCl 1,250 MG Q12H IV (DC) Sodium Chloride 250 ML Progesterone 200 MG BEDTIME PO Miscellaneous Information 1 EACH ASDIR IV (DC) Enoxaparin Sodium 40 MG Q24H SUBQ (DA) Piperacillin Sod/Tazobactam Sod 3.375 GM Q8H IV Sodium Chloride 100 ML Al Hydrox/Mg Hydrox/Simethicone 30 ML Q4H PRN MD N PO Docusate Sodium 100 MG BID PRN PRN PO Hydralazine HCl 10 MG Q6H PRN PRN IV Morphine Sulfate 4 MG Q4H PRN PRN IV Ondansetron HCl 4 MG Q4H PRN PRN IV Physical Exam General appearance: alert, awake, oriented, no a cute distress, pleasant, conversational, mental status normal, no respira tory distress Wound/incision: Location: lower abdomen Site condition: drainage, dressing stained, loraine thema, no ecchymosis HEENT: atraumatic, normocephalic Respiratory: no distress Abdomen: tenderness (appropriate), soft, no dist ention Extremities: moves all Musculoskeletal: normal inspection 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, oriented x 3, normal speech Considered stroke alert: no Skin: dry, intact Psychiatry: normal affect, normal judgment/insig ht, normal mood Results Findings/Data: Laboratory Tests 05/11/20509: [Embedded Image Not Available] Laboratory Tests 05/11 Chemistry Sodium (134 - 147 mEq/L) 136 Potassium (3.4 - 5.0 mEq/L) 3.9 Chloride (100 - 108 mEq/L) 106 Carbon Dioxide (21 - 33 mEq/l) 22 Anion Gap (0 - 20) 12 BUN (7 - 18 mg/dL) 15 Creatinine (0.6 - 1.3 mg/dL) 2.3 H Glomerular Filtr Rate (80 - 90) 21.6 L Glucose (70 - 110 mg/dL) 116 H Calcium (8.0 - 10.5 mg/dL) 9.6 Phosphorus (2.5 - 4.9 MG/DL) 4.2 Magnesium (1.80 - 2.40 mg/dL) 2.29 Iron (35 - 150 mcg/dL) 25 L TIBC (260 - 445 mcg/dL) 220 L % Saturation (14 - 34 %) 11.4 L Unsat Iron Binding (mcg/dL) 195 Ferritin (11.0 - 306.8 ng/mL) 92.0 Vitamin B12 (193 - 986 pg/mL) 3984 H Laboratory Tests 05/10 2012 Toxicology Random Vancomycin (mcg/mL) 28.2 Laboratory Tests 05/10 05/10 1910 1910 Urines Urine Color (YEL/STRAW) STRAW Urine Appearance (CLEAR) CLEAR Urine pH (5.0 - 7.0) 6.0 Ur Specific [place] (1.005 - 1.030) 1.002 L Urine Protein (NEGATIVE) NEGATIVE Urine Glucose (UA) (NEGATIVE) NEGATIVE Urine Ketones (NEGATIVE) NEGATIVE Urine Blood (NEGATIVE) NEGATIVE Urine Nitrite (NEGATIVE) NEGATIVE Urine Bilirubin (NEGATIVE) NEGATIVE Urine Urobilinogen (0.2 - 1.0 mg/dL) 0.2 Ur Leukocyte Esterase (NEGATIVE) NEGATIVE Urine RBC (0 - 3 RBC/HPF) 0-3 Urine WBC (0 - 3 WBC/HPF) 0-3 Ur Squamous Epith Cells (NONE SEEN /HPF) 0-5 Urine Bacteria (NONE SEEN /HPF) TRACE Ur Random Creatinine (mg/dL) 19.8 U Random Total Protein (mg/dL) 16 Ur Random Sodium (MEQ/L) 12 Results: labs reviewed Diagnosis, Assessment Plan Problem List/A P: 1. Abdominal abscess 2. Cellulitis, abdominal wall Free Text A P: Doing well Wound cultures noted Continue abx per ID - IV Zosyn. Local wound care, Change packing daily. consult wound care nurse Diet as tolerated DARIAN - Renal consulted. Off Vanc, Renal US ordere d Ok to d/c home when cleared by attending/other c onsultants Dr. Hopper will be covering ov er the holiday if there are any questions/concerns. Orders: Procedure Date/time Status Wound Care 05/11 816 Active Plan discussed with: patient, nurse OluIn Emmanuelle 05/12/20 0850: Attestations Physician Attestation Agree w/findings plan: I have personally interviewe d and examined the pt. All charts, labs and imaging studies were reviewed. Her w ound looks good. Less pain per pt. I agree with the PA s exam and plan. Electronically Signed by Dominga Child on at 1242 Electronically Signed by Kayla Raines MD on 0 at 0851 RPT #:[id number] END OF REPORT 2020-05-11 11:30:00-00:00 [facility] Hospitalist Progress Note REPORT#:[id number] REPORT STATUS: Signed DATE:05/11/20 TIME: 1130 PATIENT: LAKSHMI BATES UNIT #: [id number] ROOM/BED: [place] [address] : 60 AGE: 60 SEX: F ATTEND: Wan Marc DO ADM AUTHOR: Mynor Hines MD * ALL edits or amendments must be made on the [employer]/computer document * Subjective Chief Complaint: C/O METALLIC TASTE IN HER MOUTH THIS AM, AND STI LL HAS SOME SWELLING OF LEGS NOW. INFORMED OF TRT PLAN, AND OBSERVE S X FOR NOW AND FLUID OL FROM INITIAL IV HYDRATION. Objective General Medications: Active Meds + DC'd Last 24 Hrs Sodium Chloride 10 ML BID IV Lidocaine HCl 5 ML ONCE ONE LOCAL (DC) Sodium Chloride 10 ML ASDIR PRN IV Hydrocodone Bitart/Acetaminophen 1 TAB Q4H PRN P RN PO Hydrocodone Bitart/Acetaminophen 1 TAB Q4H PRN P RN PO Ondansetron HCl 4 MG Q6H PRN PRN IV Sodium Chloride 10 ML ASDIR IV Vancomycin HCl 1,250 MG Q12H IV (DC) Sodium Chloride 250 ML Progesterone 200 MG BEDTIME PO Miscellaneous Information 1 EACH ASDIR IV (DC) Enoxaparin Sodium 40 MG Q24H SUBQ (DA) Piperacillin Sod/Tazobactam Sod 3.375 GM Q8H IV Sodium Chloride 100 ML Al Hydrox/Mg Hydrox/Simethicone 30 ML Q4H PRN MD N PO Docusate Sodium 100 MG BID PRN PRN PO Hydralazine HCl 10 MG Q6H PRN PRN IV Morphine Sulfate 4 MG Q4H PRN PRN IV Ondansetron HCl 4 MG Q4H PRN PRN IV Physical Exam General appearance: obese, alert, awake, oriente d Neck: no JVD Cardiovascular: normal heart sounds, regular rat e rhythm Respiratory: clear to auscultation Abdomen: obese, tenderness, SUPRAPUBIC WOUND PARTIALLY SEEN WITH TRACKING HOLE, AND PARTLY DRESSED. Extremities: no edema, JUST FAT EDEMA ON LEGS 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, oriented X 3, normal speech, n o motor deficits Results Findings/Data: Laboratory Tests 05/11 Chemistry Sodium (134 - 147 mEq/L) 136 Potassium (3.4 - 5.0 mEq/L) 3.9 Chloride (100 - 108 mEq/L) 106 Carbon Dioxide (21 - 33 mEq/l) 22 Anion Gap (0 - 20) 12 BUN (7 - 18 mg/dL) 15 Creatinine (0.6 - 1.3 mg/dL) 2.3 H Glomerular Filtr Rate (80 - 90) 21.6 L Glucose (70 - 110 mg/dL) 116 H Calcium (8.0 - 10.5 mg/dL) 9.6 Phosphorus (2.5 - 4.9 MG/DL) 4.2 Magnesium (1.80 - 2.40 mg/dL) 2.29 Iron (35 - 150 mcg/dL) 25 L TIBC (260 - 445 mcg/dL) 220 L % Saturation (14 - 34 %) 11.4 L Unsat Iron Binding (mcg/dL) 195 Ferritin (11.0 - 306.8 ng/mL) 92.0 Vitamin B12 (193 - 986 pg/mL) 3984 H Laboratory Tests 05/10 2012 Toxicology Random Vancomycin (mcg/mL) 28.2 Laboratory Tests 05/10 Urines Urine Color (YEL/STRAW) STRAW Urine Appearance (CLEAR) CLEAR Urine pH (5.0 - 7.0) 6.0 Ur Specific [place] (1.005 - 1.030) 1.002 L Urine Protein (NEGATIVE) NEGATIVE Urine Glucose (UA) (NEGATIVE) NEGATIVE Urine Ketones (NEGATIVE) NEGATIVE Urine Blood (NEGATIVE) NEGATIVE Urine Nitrite (NEGATIVE) NEGATIVE Urine Bilirubin (NEGATIVE) NEGATIVE Urine Urobilinogen (0.2 - 1.0 mg/dL) 0.2 Ur Leukocyte Esterase (NEGATIVE) NEGATIVE Urine RBC (0 - 3 RBC/HPF) 0-3 Urine WBC (0 - 3 WBC/HPF) 0-3 Ur Squamous Epith Cells (NONE SEEN /HPF) 0-5 Urine Bacteria (NONE SEEN /HPF) TRACE Ur Random Creatinine (mg/dL) 19.8 U Random Total Protein (mg/dL) 16 Ur Random Sodium (MEQ/L) 12 Diagnosis, Assessment Plan Hospital course to date: 1. POST OP WOUND INFECTION WITH POLYMICROBIAL ( ENTEROCOCCUS/E.COLI), S/P DEBRIDEMENT (FAT NECROSIS/PURULENCE IN OP REPORT ) - CONT ZOSYN/VANC AT RENAL DOSE, I SPOKE TO DR. BOWER WH O WILL EVAL AND CONSIDER CHANGING TO UNASYN, GS SEEN Will start patient on IV Zo syn due to cellulitis and abscess of abdominal wall. 2. ARF DUE TO SEPSIS/ATN, P OSSIBLE VANC AND CONTRAST-INDUCED - FROM 0.7 TO 2.1 NOW, HOLD VANC, RENAL SEEN, GET RENAL US, UA, FE NA, CONSIDER UR EOSINOPHILS Antibiotics as above. General surgery consulted for drainage of abdominal abscess. Will need to send fluid for Gram stain and culture 3. Anemia OF CD, RECENT BLO OD LOSS FROM ABDOMINOPLASY - STABLE, NL IRON STUDIES Hemoglobin 9.3, will monitor. Transfuse PRBCs f or hemoglobin less than 7.0. 4. Hyponatremia - RESOLVED, D/C IVF DUE TO FLUI D OL, AND EATING NOW 5. Sepsis, POA - ABOVE, WILL NEED 28 DAYS OF HOME IV ABX SETUP BY CM, AND PICC, HAS [employer] INSURANCE. Patient meets criteria for sepsis due to fever and leukocytosis, source abdominal cellulitis and abscess. Continue fluid resuscitation with IV normal saline, will treat with IV Zosyn as above. I SPENT 35 MINUTES ON REVIEWING CHART, LABS, ZULEIKA TS, MEDS, PROGRESS NOTES, TRT PLAN, AND DISCUSSION WITH THE PATIENT, HER CM. Problem List/A P: 1. Cellulitis, abdominal wall Will start patient on IV Zo syn due to cellulitis and abscess of abdominal wall. 2. Abdominal abscess Antibiotics as above. General surgery consulted for drainage of abdominal abscess. Will need to send fluid for Gram stain and culture 3. Anemia Hemoglobin 9.3, will monitor. Transfuse PRBCs f or hemoglobin less than 7.0. 4. Hyponatremia 5. Sepsis Patient meets criteria for sepsis due to fever and leukocytosis, source abdominal cellulitis and abscess. Continue fluid resuscitation with IV normal saline, will treat with IV Zosyn as above. Electronically Signed by Mynor Hines MD on 05/11 at 1135 RPT #:[id number] END OF REPORT 2020-05-11 08:26:00-00:00 [facility] Nephrology Progress Note REPORT#:[id number] REPORT STATUS: Signed DATE:05/11/20 TIME: 825 PATIENT: LAKSHMI BATES UNIT #: [id number] ROOM/BED: [place] [id number] : 60 AGE: 60 SEX: F ATTEND: Wan Marc DO ADM AUTHOR: Jonatan Virk MD * ALL edits or amendments must be made on the [employer]/computer document * Subjective Chief Complaint: Abdominal wall abscess/DARIAN Patient reports: Yes: complaints. Comments: Patient seen evaluate, HPI no change from initia l, feels okay Review of Systems Constitutional: Yes chills, Yes fever Skin: Yes swelling Allergy/Immun: No hives, No itching Eyes: No redness, No discharge ENT: No ear drainage, No ear ringing Respiratory: No hemoptysis, No SOB Cardiovascular: No chest pain, No palpitations Objective General VS/I O: Vital Signs: Date Time Temp Pulse Resp B/P B/P Pulse O2 O2 F low FiO2 Mean Ox Delivery Rate 05/11 0740 37.4 67 18 125/76 92.3 94 05/11 0452 57 16 146/76 99.4 96 Room air 05/10 2153 36.9 55 16 117/68 84.1 96 Room air 05/10 1853 36.9 60 16 145/87 106.1 96 Room air 05/10 1739 36.4 59 16 150/84 106.1 98 Room air 05/10 1130 36.6 59 16 178/78 111.4 100 Room ai r 05/10 0850 36.4 59 14 144/84 103.8 97 Room air 24 hour I O ending at 0700: 05/11 0700 05/10 1900 Intake Total 340.00 480 Output Total Balance 340.00 480 Intake, IV 100.00 Intake, Oral 240 480 Number Voids 3 Medications Active Meds + DC'd Last 24 Hrs Sodium Chloride 10 ML BID IV Lidocaine HCl 5 ML ONCE ONE LOCAL (DC) Sodium Chloride 10 ML ASDIR PRN IV Hydrocodone Bitart/Acetaminophen 1 TAB Q4H PRN P RN PO Hydrocodone Bitart/Acetaminophen 1 TAB Q4H PRN P RN PO Ondansetron HCl 4 MG Q6H PRN PRN IV Sodium Chloride 10 ML ASDIR IV Vancomycin HCl 1,250 MG Q12H IV (DC) Sodium Chloride 250 ML Progesterone 200 MG BEDTIME PO Miscellaneous Information 1 EACH ASDIR IV (DC) Enoxaparin Sodium 40 MG Q24H SUBQ (DA) Piperacillin Sod/Tazobactam Sod 3.375 GM Q8H IV Sodium Chloride 100 ML Al Hydrox/Mg Hydrox/Simethicone 30 ML Q4H PRN MD N PO Docusate Sodium 100 MG BID PRN PRN PO Hydralazine HCl 10 MG Q6H PRN PRN IV Morphine Sulfate 4 MG Q4H PRN PRN IV Ondansetron HCl 4 MG Q4H PRN PRN IV Sodium Chloride 1,000 ML .Q10H IV (DC) Physical Exam General appearance: alert, no acute distress Head/eyes: atraumatic, normocephalic ENT: normal nose Neck: supple/no meningismus Cardiovascular: normal heart sounds, no rub Respiratory: aerating well, no distress Abdomen: soft Genitourinary: no flank pain Extremities: pitting edema, non-tender Musculoskeletal: no CVA tenderness, no tenderene ss 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, normal speech Skin: dry, intact Results Findings/Data: Laboratory Tests 05/1110 2011 09 Chemistry Sodium (134 - 147 mEq/L) 136 134 Potassium (3.4 - 5.0 mEq/L) 3.9 3.8 Chloride (100 - 108 mEq/L) 106 104 Carbon Dioxide (21 - 33 mEq/l) 22 22 Anion Gap (0 - 20) 12 12 BUN (7 - 18 mg/dL) 15 12 Creatinine (0.6 - 1.3 mg/dL) 2.3 H 1.7 H Glomerular Filtr Rate (80 - 90) 21.6 L 30.7 L Glucose (70 - 110 mg/dL) 116 H 159 H Calcium (8.0 - 10.5 mg/dL) 9.6 8.5 Phosphorus (2.5 - 4.9 MG/DL) 4.2 Magnesium (1.80 - 2.40 mg/dL) 2.29 Iron (35 - 150 mcg/dL) 25 L TIBC (260 - 445 mcg/dL) 220 L % Saturation (14 - 34 %) 11.4 L Unsat Iron Binding (mcg/dL) 195 Ferritin (11.0 - 306.8 ng/mL) 92.0 Vitamin B12 (193 - 986 pg/mL) 3984 H Laboratory Tests 05/10 2012 Toxicology Random Vancomycin (mcg/mL) 28.2 Laboratory Tests 05/10 05/10 1910 1910 Urines Urine Color (YEL/STRAW) STRAW Urine Appearance (CLEAR) CLEAR Urine pH (5.0 - 7.0) 6.0 Ur Specific [place] (1.005 - 1.030) 1.002 L Urine Protein (NEGATIVE) NEGATIVE Urine Glucose (UA) (NEGATIVE) NEGATIVE Urine Ketones (NEGATIVE) NEGATIVE Urine Blood (NEGATIVE) NEGATIVE Urine Nitrite (NEGATIVE) NEGATIVE Urine Bilirubin (NEGATIVE) NEGATIVE Urine Urobilinogen (0.2 - 1.0 mg/dL) 0.2 Ur Leukocyte Esterase (NEGATIVE) NEGATIVE Urine RBC (0 - 3 RBC/HPF) 0-3 Urine WBC (0 - 3 WBC/HPF) 0-3 Ur Squamous Epith Cells (NONE SEEN /HPF) 0-5 Urine Bacteria (NONE SEEN /HPF) TRACE Ur Random Creatinine (mg/dL) 19.8 U Random Total Protein (mg/dL) 16 Ur Random Sodium (MEQ/L) 12 Diagnosis, Assessment Plan Free Text A P: Patient seen and evaluated, discussed with care team, images and laboratories reviewed. History of arrhythmia status post pacemaker plac ement History of abdominoplasty co mplicated by cellulitis and abdominal wall abscess, status post I D, was treated with vancomycin and Zosyn. Acute kidney injury: Possibilities include contr ast with her CT scan of the abdomen and pelvis and oral vancomycin. Will amairani ck random back level, check urinalysis, check urine protein creatinine ratio . Mild hyponatremia Significant anemia: We will check iron studies B 12. 05/11/2020 laboratory this m lauren showed sodium 136, potassium 3.9, CO2 22, BUN 15, creatinine 2.3 continues to rise, vancomycin level 28 almost 20 hours after the last dose, her DARIAN is likely related to comb ination of contrast plus vancomycin toxicity, urinalysis negative, B12 wi thin normal limit, iron saturation 11% with a ferritin around 92. at 1142 RPT #:[id number] END OF REPORT 2020-05-10 17:11:00-00:00 [facility] ([facility]) Infect Disease Consult Note REPORT#:[id number] REPORT STATUS: Signed DATE:05/10/20 TIME: 1711 PATIENT: LAKSHMI BATES UNIT #: [id number] ROOM/BED: 5520-1 : 60 AGE: 60 SEX: F ATTEND: Wan Marc DO ADM AUTHOR: Seamus Bower MD * ALL edits or amendments must be made on the [employer]/computer document * History of Present Illness Requesting Clinician: Reason for consult: abdominal cellulitis Free Text HPI Notes Free Text HPI Notes: PT is a 60-year-old female with history of arrhy thmia status post pacemaker placement and recent abdomin oplasty on 04/18/2020 who presented to [facility] as a transfer in from an outside ER in [place], [place]. Patient presented to the ER due to abdominal p ain that started on 04/29/2020, pain is worse in the right lower quadrant. Associated symptom s included fever, chills and localized swelling. Also patient had some yellow drainage from the area. She had a CT scan of the abdomen and pelvis with contrast kevin t showed 18 x 9 x 3 cm fluid collection overlying the ant erior right lower abdomen and right flank containing gas bubbles a second 12 x 4 x 2 cm subcutaneous fluid collection with gas bubble is seen in the soft tissue just superior to the pubic symphysis. Patient was seen by surgery and had an I D of her abscess. C ulture grew E.coli and enterococcus sp. Portions of this section were scribed by Janis Sharpe on 05/11/20 at 0914 History - Adult longitudinal Past medical history: Reports: Hypertension. Past surgical history: Reports: Abdominal surgery (abdominoplasty), Pac larissa. Additional surgical history: Pacemaker placement Abdominoplasty Additional family history: Mother hypertension Alcohol use: Denies EtOH use Drug use: Denies recreational drugs Smoking status for patients 13 years old or olde r: Never Smoker Allergies: Coded Allergies: No Known Allergies (01/29/14) Portions of this section were scribed by Janis Sharpe on 05/10/20 at 1724 Review of Systems GI: Reports: abdominal pain. Denies: diarrhea, dysph agia, GERD. All systems rev neg: except as marked Portions of this section were scribed by Janis Sharpe on 05/10/20 at 1724 Objective General VS/I O: Last Documented: Result Date Time Pulse Ox 100 05/10 1130 B/P 178/78 05/10 1130 B/P Mean 111.4 05/10 1130 O2 Delivery Room air 05/10 1130 Temp 36.6 05/10 1130 Pulse 59 05/10 1130 Resp 16 05/10 1130 FiO2 21 05/09 2314 O2 Flow Rate 9 05/09 1237 Vital Signs Date Temp Pulse Resp B/P B/P Mean Pulse Ox FiO2 05/09-05/10 36.4-36.8 52-60 14-16 117-178/72-84 87.1-111.4 95-100 21 24 hour I O ending at 0700: 05/10 0700 05/09 1900 Intake Total 720 Output Total Balance 720 Intake, Oral 720 Number Voids 5 PATIENT WEIGHT: Weight (lb): 186 Weight (oz): 15.23 Weight (kg): 84.800 Physical Exam General appearance: alert, awake, oriented Wound/incision: Location: Abdominal surgical wound; right lower abdomen +drainage lower abdominal surgical wound +drainage +packin g Head/eyes: atraumatic, clear cornea, EOMI, mohsen l conjunctiva/sclera, normal eyelids/periorb, normocephalic, PERRL ENT: normal dentition, normal nose, normal phary nx, normal sinus Neck: full range of motion, non-tender, normal thyroid, supple/no meningismus, no bruit/NL carotids, no JVD, no masses or swell ing, no lymphadenopathy Cardiovascular: regular rate rhythm Respiratory: clear to auscultation, no distress Abdomen: non-tender, soft, n o distention, no guarding, no mass/organomegaly, no rebound Extremities: moves all, normal capillary refill, normal sensory, no edema Musculoskeletal: full range of motion, normal in spection 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, oriented X 3 Considered stroke alert: no Skin: dry, intact Results Findings/Data: Laboratory Tests 05/10 05/10 0906 0530 Chemistry Sodium (134 - 147 mEq/L) 134 134 Potassium (3.4 - 5.0 mEq/L) 3.8 4.0 Chloride (100 - 108 mEq/L) 104 105 Carbon Dioxide (21 - 33 mEq/l) 22 22 Anion Gap (0 - 20) 12 11 BUN (7 - 18 mg/dL) 12 12 Creatinine (0.6 - 1.3 mg/dL) 1.7 H 1.6 H Glomerular Filtr Rate (80 - 90) 30.7 L 32.9 L Glucose (70 - 110 mg/dL) 159 H 139 H Calcium (8.0 - 10.5 mg/dL) 8.5 8.9 Laboratory Tests 05/10 0530 Hematology WBC (4.5 - 11.0 x10 3/uL) 16.4 H RBC (3.54 - 5.02 x10 6/uL) 2.73 L Hgb (11.0 - 15.0 g/dL) 7.5 L Hct (33.0 - 45.0 %) 24.5 L MCV (81.0 - 99.0 fL) 89.7 MCH (27.0 - 33.0 pg) 27.5 MCHC (33.0 - 37.0 g/dL) 30.6 L RDW (11.5 - 14.5 %) 14.6 H Plt Count (150 - 400 x10 3/uL) 508 H MPV (7.0 - 9.0 fL) 9.7 H Neut % (Auto) (56.0 - 77.0 %) 86.5 H Lymph % (Auto) (14.0 - 32.0 %) 6.9 L [place] % (Auto) (4.8 - 9.0 %) 4.4 L Eos % (Auto) (0.3 - 3.7 %) 0.1 L Baso % (Auto) (0.0 - 2.0 %) 0.1 Neut # (Auto) (2.0 - 7.6 x10 3/uL) 14.21 H Lymph # (Auto) (1.0 - 3.8 x10 3/uL) 1.14 [place] # (Auto) (0.1 - 0.8 x10 3/uL) 0.73 Eos # (Auto) (0.0 - 0.2 x10 3/uL) 0.01 Baso # (Auto) (0.0 - 0.2 x10 3/uL) 0.02 Abs Immat Gran (auto) (0.00 - 0.03 x10 3/uL) 0. 33 H Add Manual Diff NO Immature Gran % (0.0 - 2.0 %) 2.0 Nucleated RBC % (0 - 0 %) 0.0 Nucleated RBCs # (Man) (0.0 - 0.1 x10 3/uL) 0.0 0 Microbiology: 05/09 1243 ABDOMINAL: Wound Culture - RES 05/09 1243 ABDOMINAL: Anaerobic Culture - RES 05/09 124 ABDOMINAL: Gram Stain - RES 05/08 1125 BLOOD: Blood Culture - RES Active Meds + DC'd Last 24 Hrs Sodium Chloride 10 ML BID IV Lidocaine HCl 5 ML ONCE ONE LOCAL (DC) Sodium Chloride 10 ML ASDIR PRN IV Hydrocodone Bitart/Acetaminophen 1 TAB Q4H PRN P RN PO Hydrocodone Bitart/Acetaminophen 1 TAB Q4H PRN P RN PO Ondansetron HCl 4 MG Q6H PRN PRN IV Sodium Chloride 10 ML ASDIR IV Fentanyl Citrate 100 MCG PACU Q10MIN PRN PRN IV (DC) Fentanyl Citrate 50 MCG PACU Q10MIN PRN PRN IV ( DC) Hydralazine HCl 2 MG PACU Q10MIN PRN PRN IV (DC) Hydrocodone Bitart/Acetaminophen 1 TAB PACU ONCE PO (DC) Hydromorphone HCl 1 MG PACU Q10MIN PRN PRN IV (D C) Hydromorphone HCl 0.5 MG PACU Q5MIN PRN PRN IV ( DC) Insulin Human Lispro 0 PACU ONCE PRN SUBQ (DC) Labetalol HCl 5 MG PACU Q10MIN PRN PRN IV (DC) Lactated Ringer's 1,000 ML .Q24H IV (DC) Meperidine HCl 12.5 MG PACU ONCE PRN IV (DC) Morphine Sulfate 2 MG PACU Q10MIN PRN PRN IV (DC ) Ondansetron HCl 4 MG PACU ONCE PRN IV (DC) Promethazine HCl 25 MG PACU ONCE PRN IM (DC) Ropivacaine 150 MG ASDIR PRN LOCAL (DC) Sodium Chloride 1,000 ML .Q24H IV (DC) Tramadol HCl 50 MG PACU ONCE PO (DC) Vancomycin HCl 1,250 MG Q12H IV (DC) Sodium Chloride 250 ML Progesterone 200 MG BEDTIME PO Miscellaneous Information 1 EACH ASDIR IV (DC) Enoxaparin Sodium 40 MG Q24H SUBQ (DA) Piperacillin Sod/Tazobactam Sod 3.375 GM Q8H IV Sodium Chloride 100 ML Al Hydrox/Mg Hydrox/Simethicone 30 ML Q4H PRN MD N PO Docusate Sodium 100 MG BID PRN PRN PO Hydralazine HCl 10 MG Q6H PRN PRN IV Morphine Sulfate 4 MG Q4H PRN PRN IV Ondansetron HCl 4 MG Q4H PRN PRN IV Sodium Chloride 1,000 ML .Q10H IV (DC) Portions of this section were scribed by Janis Sharpe on 05/10/20 at 1724 Diagnosis, Assessment Plan Problem List/A P: 1. Sepsis 2. Abdominal abscess 3. Cellulitis, abdominal wall Free Text DxA P Notes Free text DxA P notes: 1. Sepsis sec to abdominal abscess 2. Abdominal absecess s/p I D; cx E.coli and enterococcus sp D/C vancomycin cont on Zosyn 3.375gm IV Q8hrs 3. S/p recent abdominoplasty 4. leukocytosis 5. DARIAN Portions of this section were scribed by Janis Sharpe on 05/11/20 at 0914 at 1014 RPT #:[id number] END OF REPORT 2020-05-10 17:04[facility]00[facility]00:00 [facility] Nephrology Consultation Note REPORT#:[id number] REPORT STATUS: Signed DATE:05/10/20 TIME: 1704 PATIENT: LAKSHMI BATES UNIT #: [id number] ROOM/BED: [place] [id number] : 60 AGE: 60 SEX: F ATTEND: Wan Marc DO ADM AUTHOR: Jonatan Virk MD * ALL edits or amendments must be made on the [employer]/computer document * History of Present Illness Requesting clinician: Sachin Hines Reason for consult: DARIAN Chief complaint: Abdominal pain/Abscess HPI: Patient seen and evaluated, discussed with care team, 60-year-old female with history of arrhythmia status post pacemaker placement and recent abdominoplasty on 04/18/2020 who presented to [facility] as a transfer in from an outside ER in [place], [place]. Patient presente d to the ER due to abdominal pain that started on 04/29/2020, pain is worse in the righ t lower quadrant. Associated symptoms included fever, chills and localized sw elling. Also patient had some yellow drainage from the are a. She had a CT scan of the abdomen and pelvis with contrast that showed 18 x 9 x 3 cm fluid collection overlying the anterior right lower abdomen and right flank containing gas kailey bles a second 12 x 4 x 2 cm subcutaneous fluid collection with gas bubble is seen in the soft tissue just superior to the pubic symphysis. Patient was seen by surgery and had an I D of her abscess. Her initial ser um creatinine was 0.7 and was 1.7 today, her sodium was 134, hemoglobin 7.4, whi te blood count 16.4, renal consult was requested for evaluation management of her acute kidney injury . History - Adult longitudinal Past medical history: Reports: Hypertension. Past surgical history: Reports: Abdominal surgery (abdominoplasty), Pac emaker. Additional surgical history: Pacemaker placement Abdominoplasty Additional family history: Mother hypertension Alcohol use: Denies EtOH use Drug use: Denies recreational drugs Smoking status for patients 13 years old or olde r: Never Smoker Allergies: Coded Allergies: No Known Allergies (01/29/14) Review of Systems Constitutional: Yes chills, Yes fever Skin: Yes swelling Allergy/Immun: No hives, No itching Eyes: No redness, No discharge ENT: No ear drainage, No ear ringing Respiratory: No hemoptysis, No SOB Cardiovascular: No chest pain, No palpitations GI: Yes abdominal pain, No nausea, No vomiting : Denies: dysuria, flank pain. Musculoskeletal: No arthritis, No extremity pain Heme: No bleeding, No bruising Endocrine: No cold intolerance, No heat intolerance Neuro: No change in LOC, No seizure Psych: No agitation, No anxiety Objective General VS/I O: Vital Signs: Date Time Temp Pulse Resp B/P B/P Pulse O2 O2 F low FiO2 Mean Ox Delivery Rate 05/10 1130 36.6 59 16 178/78 111.4 100 Room air 05/10 0850 36.4 59 14 144/84 103.8 97 Room air 05/10 0351 36.8 52 16 117/72 87.1 95 Room air 05/09 2314 98 Room air 21 05/09 1940 36.8 60 16 144/79 100.4 96 Room air 24 hour I O ending at 0700: 05/10 0700 05/09 1900 Intake Total 720 Output Total Balance 720 Intake, Oral 720 Number Voids 5 PATIENT WEIGHT: Weight (lb): 186 Weight (oz): 15.23 Weight (kg): 84.800 Medications: Active Meds + DC'd Last 24 Hrs Sodium Chloride 10 ML BID IV Lidocaine HCl 5 ML ONCE ONE LOCAL (DC) Sodium Chloride 10 ML ASDIR PRN IV Hydrocodone Bitart/Acetaminophen 1 TAB Q4H PRN P RN PO Hydrocodone Bitart/Acetaminophen 1 TAB Q4H PRN P RN PO Ondansetron HCl 4 MG Q6H PRN PRN IV Sodium Chloride 10 ML ASDIR IV Fentanyl Citrate 100 MCG PACU Q10MIN PRN PRN IV (DC) Fentanyl Citrate 50 MCG PACU Q10MIN PRN PRN IV ( DC) Hydralazine HCl 2 MG PACU Q10MIN PRN PRN IV (DC) Hydrocodone Bitart/Acetaminophen 1 TAB PACU ONCE PO (DC) Hydromorphone HCl 1 MG PACU Q10MIN PRN PRN IV (D C) Hydromorphone HCl 0.5 MG PACU Q5MIN PRN PRN IV ( DC) Insulin Human Lispro 0 PACU ONCE PRN SUBQ (DC) Labetalol HCl 5 MG PACU Q10MIN PRN PRN IV (DC) Lactated Ringer's 1,000 ML .Q24H IV (DC) Meperidine HCl 12.5 MG PACU ONCE PRN IV (DC) Morphine Sulfate 2 MG PACU Q10MIN PRN PRN IV (DC ) Ondansetron HCl 4 MG PACU ONCE PRN IV (DC) Promethazine HCl 25 MG PACU ONCE PRN IM (DC) Ropivacaine 150 MG ASDIR PRN LOCAL (DC) Sodium Chloride 1,000 ML .Q24H IV (DC) Tramadol HCl 50 MG PACU ONCE PO (DC) Vancomycin HCl 1,250 MG Q12H IV (DC) Sodium Chloride 250 ML Progesterone 200 MG BEDTIME PO Miscellaneous Information 1 EACH ASDIR IV (DC) Enoxaparin Sodium 40 MG Q24H SUBQ (DA) Piperacillin Sod/Tazobactam Sod 3.375 GM Q8H IV Sodium Chloride 100 ML Al Hydrox/Mg Hydrox/Simethicone 30 ML Q4H PRN MD N PO Docusate Sodium 100 MG BID PRN PRN PO Hydralazine HCl 10 MG Q6H PRN PRN IV Morphine Sulfate 4 MG Q4H PRN PRN IV Ondansetron HCl 4 MG Q4H PRN PRN IV Sodium Chloride 1,000 ML .Q10H IV (DC) Physical Exam General appearance: alert, no acute distress Head/eyes: atraumatic, normocephalic ENT: normal nose Neck: supple/no meningismus Cardiovascular: normal heart sounds, no rub Respiratory: aerating well, no distress Abdomen: soft Genitourinary: no flank pain Extremities: pitting edema, non-tender Musculoskeletal: no CVA tenderness, no tenderene ss 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, normal speech Skin: dry, intact Results Findings/Data: Laboratory Tests 05/10 05/10 05/09 05/08 0906 0530 0418 1120 Chemistry Sodium (134 - 147 mEq/L) 134 134 134 134 Potassium (3.4 - 5.0 mEq/L) 3.8 4.0 3.6 3.7 Chloride (100 - 108 mEq/L) 104 105 105 104 Carbon Dioxide (21 - 33 mEq/l) 23 24 Anion Gap (0 - 20) 12 11 10 10 BUN (7 - 18 mg/dL) 12 12 8 8 Creatinine (0.6 - 1.3 mg/dL) 1.7 H 1.6 H 0.7 0. 5 L Glomerular Filtr Rate (80 - 90) 30.7 L 32.9 L 8 5.4 125.9 H Glucose (70 - 110 mg/dL) 159 H 139 H 118 H 102 Calcium (8.0 - 10.5 mg/dL) 8.5 8.9 8.5 8.8 Phosphorus (2.5 - 4.9 MG/DL) 3.4 Magnesium (1.80 - 2.40 mg/dL) 2.15 Laboratory Tests 05/10 05/09 05/08 0530 0418 1120 Hematology WBC (4.5 - 11.0 x10 3/uL) 16.4 H 12.8 H 15.7 H RBC (3.54 - 5.02 x10 6/uL) 2.73 L 2.67 L 3.23 L Hgb (11.0 - 15.0 g/dL) 7.5 L 7.5 L 9.0 L Hct (33.0 - 45.0 %) 24.5 L 24.5 L 29.4 L MCV (81.0 - 99.0 fL) 89.7 91.8 91.0 MCH (27.0 - 33.0 pg) 27.5 28.1 27.9 MCHC (33.0 - 37.0 g/dL) 30.6 L 30.6 L 30.6 L RDW (11.5 - 14.5 %) 14.6 H 14.6 H 14.2 Plt Count (150 - 400 x10 3/uL) 508 H 541 H 608 H MPV (7.0 - 9.0 fL) 9.7 H 9.8 H 9.3 H Neut % (Auto) (56.0 - 77.0 %) 86.5 H 77.9 H 75. 3 Lymph % (Auto) (14.0 - 32.0 %) 6.9 L 10.6 L 13. 9 L [place] % (Auto) (4.8 - 9.0 %) 4.4 L 8.5 7.9 Eos % (Auto) (0.3 - 3.7 %) 0.1 L 1.3 1.5 Baso % (Auto) (0.0 - 2.0 %) 0.1 0.3 0.3 Neut # (Auto) (2.0 - 7.6 x10 3/uL) 14.21 H 9.97 H 11.85 H Lymph # (Auto) (1.0 - 3.8 x10 3/uL) 1.14 1.36 2 .18 [place] # (Auto) (0.1 - 0.8 x10 3/uL) 0.73 1.09 H 1.24 H Eos # (Auto) (0.0 - 0.2 x10 3/uL) 0.01 0.16 0.2 4 H Baso # (Auto) (0.0 - 0.2 x10 3/uL) 0.02 0.04 0. 05 Abs Immat Gran (auto) (0.00 - 0.03 x10 3/uL) 0. 33 H 0.18 H 0.18 H Add Manual Diff NO NO NO Immature Gran % (0.0 - 2.0 %) 2.0 1.4 1.1 Nucleated RBC % (0 - 0 %) 0.0 0.0 0.0 Nucleated RBCs # (Man) (0.0 - 0.1 x10 3/uL) 0.0 0 0.00 0.00 Laboratory Tests 05/09 0200 Serology SARS-CoV-2 Ag (Rapid) (Negative) Negative Recent Impressions: RADIOLOGY - XR CHEST 1 V 05/09 1108 Report Impression - Status: SIGNED Entered: 05/09/2020 1115 IMPRESSION: No acute abnormality as above discussed. SL: [id number] Impression By: Seth - Francesco Lowe M.D. Laboratory Tests 05/10 05/10 0906 0530 Chemistry Sodium (134 - 147 mEq/L) 134 134 Potassium (3.4 - 5.0 mEq/L) 3.8 4.0 Chloride (100 - 108 mEq/L) 104 105 Carbon Dioxide (21 - 33 mEq/l) 22 22 Anion Gap (0 - 20) 12 11 BUN (7 - 18 mg/dL) 12 12 Creatinine (0.6 - 1.3 mg/dL) 1.7 H 1.6 H Glomerular Filtr Rate (80 - 90) 30.7 L 32.9 L Glucose (70 - 110 mg/dL) 159 H 139 H Calcium (8.0 - 10.5 mg/dL) 8.5 8.9 Laboratory Tests 05/10 0530 Hematology WBC (4.5 - 11.0 x10 3/uL) 16.4 H RBC (3.54 - 5.02 x10 6/uL) 2.73 L Hgb (11.0 - 15.0 g/dL) 7.5 L Hct (33.0 - 45.0 %) 24.5 L MCV (81.0 - 99.0 fL) 89.7 MCH (27.0 - 33.0 pg) 27.5 MCHC (33.0 - 37.0 g/dL) 30.6 L RDW (11.5 - 14.5 %) 14.6 H Plt Count (150 - 400 x10 3/uL) 508 H MPV (7.0 - 9.0 fL) 9.7 H Neut % (Auto) (56.0 - 77.0 %) 86.5 H Lymph % (Auto) (14.0 - 32.0 %) 6.9 L [place] % (Auto) (4.8 - 9.0 %) 4.4 L Eos % (Auto) (0.3 - 3.7 %) 0.1 L Baso % (Auto) (0.0 - 2.0 %) 0.1 Neut # (Auto) (2.0 - 7.6 x10 3/uL) 14.21 H Lymph # (Auto) (1.0 - 3.8 x10 3/uL) 1.14 [place] # (Auto) (0.1 - 0.8 x10 3/uL) 0.73 Eos # (Auto) (0.0 - 0.2 x10 3/uL) 0.01 Baso # (Auto) (0.0 - 0.2 x10 3/uL) 0.02 Abs Immat Gran (auto) (0.00 - 0.03 x10 3/uL) 0. 33 H Add Manual Diff NO Immature Gran % (0.0 - 2.0 %) 2.0 Nucleated RBC % (0 - 0 %) 0.0 Nucleated RBCs # (Man) (0.0 - 0.1 x10 3/uL) 0.0 0 Diagnosis, Assessment Plan Free Text DxA P Notes Free Text DxA P Notes: Patient seen and evaluated, discussed with care team, images and laboratories reviewed. History of arrhythmia status post pacemaker plac ement History of abdominoplasty co mplicated by cellulitis and abdominal wall abscess, status post I D, was treated with vancomycin and Zosyn. Acute kidney injury: Possibilities include contr ast with her CT scan of the abdomen and pelvis and oral vancomycin. Will amairani ck random back level, check urinalysis, check urine protein creatinine ratio . Mild hyponatremia Significant anemia: We will check iron studies B 12. at 1809 RPT #:[id number] END OF REPORT 2020-05-10 15:25:00-00:00 [facility] General Surgery Progress Note REPORT#:[id number] REPORT STATUS: Signed DATE:05/10/20 TIME: 1525 PATIENT: LAKSHMI BATES UNIT #: [id number] ROOM/BED: [place] [id number] : 60 AGE: 60 SEX: F ATTEND: Wan Marc DO ADM AUTHOR: Dominga Child * ALL edits or amendments must be made on the el [employer]/computer document * General Date of surgery: 05/09/20 Status post: I D abdominal wall abscess Subjective HPI: S/p surgery- feeling better. Pain controlled. Af ebrile Patient reports: Yes: feeling better, pain controlled, tolerating diet. No: fever. Objective General VS/I O: Last Documented: Result Date Time Pulse Ox 100 05/10 1130 B/P 178/78 05/10 1130 B/P Mean 111.4 05/10 1130 O2 Delivery Room air 05/10 1130 Temp 36.6 05/10 1130 Pulse 59 05/10 1130 Resp 16 05/10 1130 FiO2 21 05/09 2314 O2 Flow Rate 9 05/09 1237 Vital Signs Date Temp Pulse Resp B/P B/P Mean Pulse Ox FiO2 05/09-05/10 36.4-36.9 52-60 14-16 117-178/72-84 87.1-111.4 95-100 21 24 hour I O ending at 0700: 05/10 0700 05/09 1900 Intake Total 720 Output Total Balance 720 Intake, Oral 720 Number Voids 5 PATIENT WEIGHT: Weight (lb): 186 Weight (oz): 15.23 Weight (kg): 84.800 Medications: Active Meds + DC'd Last 24 Hrs Sodium Chloride 10 ML BID IV Lidocaine HCl 5 ML ONCE ONE LOCAL (DC) Sodium Chloride 10 ML ASDIR PRN IV Hydrocodone Bitart/Acetaminophen 1 TAB Q4H PRN P RN PO Hydrocodone Bitart/Acetaminophen 1 TAB Q4H PRN P RN PO Ondansetron HCl 4 MG Q6H PRN PRN IV Sodium Chloride 10 ML ASDIR IV Fentanyl Citrate 100 MCG PACU Q10MIN PRN PRN IV (DC) Fentanyl Citrate 50 MCG PACU Q10MIN PRN PRN IV ( DC) Hydralazine HCl 2 MG PACU Q10MIN PRN PRN IV (DC) Hydrocodone Bitart/Acetaminophen 1 TAB PACU ONCE PO (DC) Hydromorphone HCl 1 MG PACU Q10MIN PRN PRN IV (D C) Hydromorphone HCl 0.5 MG PACU Q5MIN PRN PRN IV ( DC) Insulin Human Lispro 0 PACU ONCE PRN SUBQ (DC) Labetalol HCl 5 MG PACU Q10MIN PRN PRN IV (DC) Lactated Ringer's 1,000 ML .Q24H IV (DC) Meperidine HCl 12.5 MG PACU ONCE PRN IV (DC) Morphine Sulfate 2 MG PACU Q10MIN PRN PRN IV (DC ) Ondansetron HCl 4 MG PACU ONCE PRN IV (DC) Promethazine HCl 25 MG PACU ONCE PRN IM (DC) Ropivacaine 150 MG ASDIR PRN LOCAL (DC) Sodium Chloride 1,000 ML .Q24H IV (DC) Tramadol HCl 50 MG PACU ONCE PO (DC) Vancomycin HCl 1,250 MG Q12H IV (DC) Sodium Chloride 250 ML Progesterone 200 MG BEDTIME PO Miscellaneous Information 1 EACH ASDIR IV (DC) Enoxaparin Sodium 40 MG Q24H SUBQ (DA) Piperacillin Sod/Tazobactam Sod 3.375 GM Q8H IV Sodium Chloride 100 ML Al Hydrox/Mg Hydrox/Simethicone 30 ML Q4H PRN MD N PO Docusate Sodium 100 MG BID PRN PRN PO Hydralazine HCl 10 MG Q6H PRN PRN IV Morphine Sulfate 4 MG Q4H PRN PRN IV Ondansetron HCl 4 MG Q4H PRN PRN IV Sodium Chloride 1,000 ML .Q10H IV (DC) Physical Exam General appearance: alert, awake, oriented, no a cute distress, pleasant, conversational, mental status normal, no respira tory distress Wound/incision: Location: lower abdomen Site condition: drainage, dressing saturated, e rythema, no ecchymosis HEENT: atraumatic, normocephalic Respiratory: no distress Abdomen: tenderness (appropriate), soft, no dist ention Extremities: moves all Musculoskeletal: normal inspection 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, oriented x 3, normal speech Considered stroke alert: no Skin: dry, intact Psychiatry: normal affect, normal judgment/insig ht, normal mood Results Findings/Data: Laboratory Tests 05/10/20905: [Embedded Image Not Available] 05/10/20529: [Embedded Image Not Available] Laboratory Tests 05/10 Chemistry Sodium (134 - 147 mEq/L) 134 134 Potassium (3.4 - 5.0 mEq/L) 3.8 4.0 Chloride (100 - 108 mEq/L) 104 105 Carbon Dioxide (21 - 33 mEq/l) 22 22 Anion Gap (0 - 20) 12 11 BUN (7 - 18 mg/dL) 12 12 Creatinine (0.6 - 1.3 mg/dL) 1.7 H 1.6 H Glomerular Filtr Rate (80 - 90) 30.7 L 32.9 L Glucose (70 - 110 mg/dL) 159 H 139 H Calcium (8.0 - 10.5 mg/dL) 8.5 8.9 Laboratory Tests 05/10 0530 Hematology WBC (4.5 - 11.0 x10 3/uL) 16.4 H RBC (3.54 - 5.02 x10 6/uL) 2.73 L Hgb (11.0 - 15.0 g/dL) 7.5 L Hct (33.0 - 45.0 %) 24.5 L MCV (81.0 - 99.0 fL) 89.7 MCH (27.0 - 33.0 pg) 27.5 MCHC (33.0 - 37.0 g/dL) 30.6 L RDW (11.5 - 14.5 %) 14.6 H Plt Count (150 - 400 x10 3/uL) 508 H MPV (7.0 - 9.0 fL) 9.7 H Neut % (Auto) (56.0 - 77.0 %) 86.5 H Lymph % (Auto) (14.0 - 32.0 %) 6.9 L [place] % (Auto) (4.8 - 9.0 %) 4.4 L Eos % (Auto) (0.3 - 3.7 %) 0.1 L Baso % (Auto) (0.0 - 2.0 %) 0.1 Neut # (Auto) (2.0 - 7.6 x10 3/uL) 14.21 H Lymph # (Auto) (1.0 - 3.8 x10 3/uL) 1.14 [place] # (Auto) (0.1 - 0.8 x10 3/uL) 0.73 Eos # (Auto) (0.0 - 0.2 x10 3/uL) 0.01 Baso # (Auto) (0.0 - 0.2 x10 3/uL) 0.02 Abs Immat Gran (auto) (0.00 - 0.03 x10 3/uL) 0. 33 H Add Manual Diff NO Immature Gran % (0.0 - 2.0 %) 2.0 Nucleated RBC % (0 - 0 %) 0.0 Nucleated RBCs # (Man) (0.0 - 0.1 x10 3/uL) 0. 00 Results: labs reviewed, vital signs stable Diagnosis, Assessment Plan Problem List/A P: 1. Abdominal abscess 2. Cellulitis, abdominal wall Free Text A P: Doing well Wound cultures noted Continue abx per ID - IV Zosyn Local wound care, Change packing daily Diet as tolerated DARIAN - monitor renal fxn, Off Vanc, Renal US orde red Repeat labs in AM Plan discussed with: patient, ID Electronically Signed by Dominga Child on at 1533 RPT #:[id number] END OF REPORT 2020-05-10 15:25:00-00:00 [facility] General Surgery Progress Note REPORT#:[id number] REPORT STATUS: Signed DATE:05/10/20 TIME: 152 PATIENT: LAKSHMI BATES UNIT #: [id number] ROOM/BED: [place] [address] : 60 AGE: 60 SEX: F ATTEND: Wan Marc DO ADM AUTHOR: Dominga Child * ALL edits or amendments must be made on the [employer]/computer document * Dominga Child 05/10/20 1525: General Date of surgery: 05/09/20 Status post: I D abdominal wall abscess Subjective HPI: S/p surgery- feeling better. Pain controlled. Af ebrile Patient reports: Yes: feeling better, pain controlled, tolerating diet. No: fever. Objective General VS/I O: Last Documented: Result Date Time Pulse Ox 100 05/10 1130 B/P 178/78 05/10 1130 B/P Mean 111.4 05/10 1130 O2 Delivery Room air 05/10 1130 Temp 36.6 05/10 1130 Pulse 59 05/10 1130 Resp 16 05/10 1130 FiO2 21 05/09 2314 O2 Flow Rate 9 05/09 1237 Vital Signs Date Temp Pulse Resp B/P B/P Mean Pulse Ox FiO2 05/09-05/10 36.4-36.9 52-60 14-16 117-178/72-84 87.1-111.4 95-100 21 24 hour I O ending at 0700: 05/10 0700 05/09 1900 Intake Total 720 Output Total Balance 720 Intake, Oral 720 Number Voids 5 PATIENT WEIGHT: Weight (lb): 186 Weight (oz): 15.23 Weight (kg): 84.800 Medications: Active Meds + DC'd Last 24 Hrs Sodium Chloride 10 ML BID IV Lidocaine HCl 5 ML ONCE ONE LOCAL (DC) Sodium Chloride 10 ML ASDIR PRN IV Hydrocodone Bitart/Acetaminophen 1 TAB Q4H PRN P RN PO Hydrocodone Bitart/Acetaminophen 1 TAB Q4H PRN P RN PO Ondansetron HCl 4 MG Q6H PRN PRN IV Sodium Chloride 10 ML ASDIR IV Fentanyl Citrate 100 MCG PACU Q10MIN PRN PRN IV (DC) Fentanyl Citrate 50 MCG PACU Q10MIN PRN PRN IV ( DC) Hydralazine HCl 2 MG PACU Q10MIN PRN PRN IV (DC) Hydrocodone Bitart/Acetaminophen 1 TAB PACU ONCE PO (DC) Hydromorphone HCl 1 MG PACU Q10MIN PRN PRN IV (D C) Hydromorphone HCl 0.5 MG PACU Q5MIN PRN PRN IV ( DC) Insulin Human Lispro 0 PACU ONCE PRN SUBQ (DC) Labetalol HCl 5 MG PACU Q10MIN PRN PRN IV (DC) Lactated Ringer's 1,000 ML .Q24H IV (DC) Meperidine HCl 12.5 MG PACU ONCE PRN IV (DC) Morphine Sulfate 2 MG PACU Q10MIN PRN PRN IV (DC ) Ondansetron HCl 4 MG PACU ONCE PRN IV (DC) Promethazine HCl 25 MG PACU ONCE PRN IM (DC) Ropivacaine 150 MG ASDIR PRN LOCAL (DC) Sodium Chloride 1,000 ML .Q24H IV (DC) Tramadol HCl 50 MG PACU ONCE PO (DC) Vancomycin HCl 1,250 MG Q12H IV (DC) Sodium Chloride 250 ML Progesterone 200 MG BEDTIME PO Miscellaneous Information 1 EACH ASDIR IV (DC) Enoxaparin Sodium 40 MG Q24H SUBQ (DA) Piperacillin Sod/Tazobactam Sod 3.375 GM Q8H IV Sodium Chloride 100 ML Al Hydrox/Mg Hydrox/Simethicone 30 ML Q4H PRN MD N PO Docusate Sodium 100 MG BID PRN PRN PO Hydralazine HCl 10 MG Q6H PRN PRN IV Morphine Sulfate 4 MG Q4H PRN PRN IV Ondansetron HCl 4 MG Q4H PRN PRN IV Sodium Chloride 1,000 ML .Q10H IV (DC) Physical Exam General appearance: alert, awake, oriented, no a cute distress, pleasant, conversational, mental status normal, no respira tory distress Wound/incision: Location: lower abdomen Site condition: drainage, dressing saturated, e rythema, no ecchymosis HEENT: atraumatic, normocephalic Respiratory: no distress Abdomen: tenderness (appropriate), soft, no dist ention Extremities: moves all Musculoskeletal: normal inspection 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, oriented x 3, normal speech Considered stroke alert: no Skin: dry, intact Psychiatry: normal affect, normal judgment/insig ht, normal mood Results Findings/Data: Laboratory Tests 05/10/20 09: [Embedded Image Not Available] 05/10/20 0530: [Embedded Image Not Available] Laboratory Tests 05/10 0530 Chemistry Sodium (134 - 147 mEq/L) 134 134 Potassium (3.4 - 5.0 mEq/L) 3.8 4.0 Chloride (100 - 108 mEq/L) 104 105 Carbon Dioxide (21 - 33 mEq/l) 22 22 Anion Gap (0 - 20) 12 11 BUN (7 - 18 mg/dL) 12 12 Creatinine (0.6 - 1.3 mg/dL) 1.7 H 1.6 H Glomerular Filtr Rate (80 - 90) 30.7 L 32.9 L Glucose (70 - 110 mg/dL) 159 H 139 H Calcium (8.0 - 10.5 mg/dL) 8.5 8.9 Laboratory Tests 05/10 0530 Hematology WBC (4.5 - 11.0 x10 3/uL) 16.4 H RBC (3.54 - 5.02 x10 6/uL) 2.73 L Hgb (11.0 - 15.0 g/dL) 7.5 L Hct (33.0 - 45.0 %) 24.5 L MCV (81.0 - 99.0 fL) 89.7 MCH (27.0 - 33.0 pg) 27.5 MCHC (33.0 - 37.0 g/dL) 30.6 L RDW (11.5 - 14.5 %) 14.6 H Plt Count (150 - 400 x10 3/uL) 508 H MPV (7.0 - 9.0 fL) 9.7 H Neut % (Auto) (56.0 - 77.0 %) 86.5 H Lymph % (Auto) (14.0 - 32.0 %) 6.9 L [place] % (Auto) (4.8 - 9.0 %) 4.4 L Eos % (Auto) (0.3 - 3.7 %) 0.1 L Baso % (Auto) (0.0 - 2.0 %) 0.1 Neut # (Auto) (2.0 - 7.6 x10 3/uL) 14.21 H Lymph # (Auto) (1.0 - 3.8 x10 3/uL) 1.14 [place] # (Auto) (0.1 - 0.8 x10 3/uL) 0.73 Eos # (Auto) (0.0 - 0.2 x10 3/uL) 0.01 Baso # (Auto) (0.0 - 0.2 x10 3/uL) 0.02 Abs Immat Gran (auto) (0.00 - 0.03 x10 3/uL) 0. 33 H Add Manual Diff NO Immature Gran % (0.0 - 2.0 %) 2.0 Nucleated RBC % (0 - 0 %) 0.0 Nucleated RBCs # (Man) (0.0 - 0.1 x10 3/uL) 0.0 0 Results: labs reviewed, vital signs stable Diagnosis, Assessment Plan Problem List/A P: 1. Abdominal abscess 2. Cellulitis, abdominal wall Free Text A P: Doing well Wound cultures noted Continue abx per ID - IV Zosyn Local wound care, Change packing daily Diet as tolerated DARIAN - monitor renal fxn, Off Vanc, Renal US orde red Repeat labs in AM Plan discussed with: patient, ID Yo,In Emmanuelle 05/11/20 1330: Attestations Physician Attestation Agree w/findings plan: I have personally interviewe d and examined the pt. All charts, labs and imaging studies were reviewed. Wound looks good. Dressin g changes daily. I agree with the PA's exam and plan. Electronically Signed by Dominga Child on at 1533 RPT #:[id number] END OF REPORT 2020-05-10 15:25:00-00:00 [facility] General Surgery Progress Note REPORT#:[id number] REPORT STATUS: Signed DATE:05/10/20 TIME: 152 PATIENT: LAKSHMI BATES UNIT #: [id number] ROOM/BED: [id number] : 60 AGE: 60 SEX: F ATTEND: Wan Marc DO ADM AUTHOR: Dominga Child * ALL edits or amendments must be made on the [employer]/computer document * Dominga Child 05/10/20 1525: General Date of surgery: 05/09/20 Status post: I D abdominal wall abscess Subjective HPI: S/p surgery- feeling better. Pain controlled. Af ebrile Patient reports: Yes: feeling better, pain controlled, tolerating diet. No: fever. Objective General VS/I O: Last Documented: Result Date Time Pulse Ox 100 05/10 1130 B/P 178/78 05/10 1130 B/P Mean 111.4 05/10 1130 O2 Delivery Room air 05/10 1130 Temp 36.6 05/10 1130 Pulse 59 05/10 1130 Resp 16 05/10 1130 FiO2 21 05/09 2314 O2 Flow Rate 9 05/09 1237 Vital Signs Date Temp Pulse Resp B/P B/P Mean Pulse Ox FiO2 05/09-05/10 36.4-36.9 52-60 14-16 117-178/72-84 87.1-111.4 95-100 21 24 hour I O ending at 0700: 05/10 0700 05/09 1900 Intake Total 720 Output Total Balance 720 Intake, Oral 720 Number Voids 5 PATIENT WEIGHT: Weight (lb): 186 Weight (oz): 15.23 Weight (kg): 84.800 Medications: Active Meds + DC'd Last 24 Hrs Sodium Chloride 10 ML BID IV Lidocaine HCl 5 ML ONCE ONE LOCAL (DC) Sodium Chloride 10 ML ASDIR PRN IV Hydrocodone Bitart/Acetaminophen 1 TAB Q4H PRN P RN PO Hydrocodone Bitart/Acetaminophen 1 TAB Q4H PRN P RN PO Ondansetron HCl 4 MG Q6H PRN PRN IV Sodium Chloride 10 ML ASDIR IV Fentanyl Citrate 100 MCG PACU Q10MIN PRN PRN IV (DC) Fentanyl Citrate 50 MCG PACU Q10MIN PRN PRN IV ( DC) Hydralazine HCl 2 MG PACU Q10MIN PRN PRN IV (DC) Hydrocodone Bitart/Acetaminophen 1 TAB PACU ONC E PO (DC) Hydromorphone HCl 1 MG PACU Q10MIN PRN PRN IV (D C) Hydromorphone HCl 0.5 MG PACU Q5MIN PRN PRN IV ( DC) Insulin Human Lispro 0 PACU ONCE PRN SUBQ (DC) Labetalol HCl 5 MG PACU Q10MIN PRN PRN IV (DC) Lactated Ringer's 1,000 ML .Q24H IV (DC) Meperidine HCl 12.5 MG PACU ONCE PRN IV (DC) Morphine Sulfate 2 MG PACU Q10MIN PRN PRN IV (DC ) Ondansetron HCl 4 MG PACU ONCE PRN IV (DC) Promethazine HCl 25 MG PACU ONCE PRN IM (DC) Ropivacaine 150 MG ASDIR PRN LOCAL (DC) Sodium Chloride 1,000 ML .Q24H IV (DC) Tramadol HCl 50 MG PACU ONCE PO (DC) Vancomycin HCl 1,250 MG Q12H IV (DC) Sodium Chloride 250 ML Progesterone 200 MG BEDTIME PO Miscellaneous Information 1 EACH ASDIR IV (DC) Enoxaparin Sodium 40 MG Q24H SUBQ (DA) Piperacillin Sod/Tazobactam Sod 3.375 GM Q8H IV Sodium Chloride 100 ML Al Hydrox/Mg Hydrox/Simethicone 30 ML Q4H PRN MD N PO Docusate Sodium 100 MG BID PRN PRN PO Hydralazine HCl 10 MG Q6H PRN PRN IV Morphine Sulfate 4 MG Q4H PRN PRN IV Ondansetron HCl 4 MG Q4H PRN PRN IV Sodium Chloride 1,000 ML .Q10H IV (DC) Physical Exam General appearance: alert, awake, oriented, no a cute distress, pleasant, conversational, mental status normal, no respira tory distress Wound/incision: Location: lower abdomen Site condition: drainage, dressing saturated, e rythema, no ecchymosis HEENT: atraumatic, normocephalic Respiratory: no distress Abdomen: tenderness (appropriate), soft, no dist ention Extremities: moves all Musculoskeletal: normal inspection 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, oriented x 3, normal speech Considered stroke alert: no Skin: dry, intact Psychiatry: normal affect, normal judgment/insig ht, normal mood Results Findings/Data: Laboratory Tests 05/10/20905: [Embedded Image Not Available] 05/10/20529: [Embedded Image Not Available] Laboratory Tests 05/10 Chemistry Sodium (134 - 147 mEq/L) 134 134 Potassium (3.4 - 5.0 mEq/L) 3.8 4.0 Chloride (100 - 108 mEq/L) 104 105 Carbon Dioxide (21 - 33 mEq/l) 22 22 Anion Gap (0 - 20) 12 11 BUN (7 - 18 mg/dL) 12 12 Creatinine (0.6 - 1.3 mg/dL) 1.7 H 1.6 H Glomerular Filtr Rate (80 - 90) 30.7 L 32.9 L Glucose (70 - 110 mg/dL) 159 H 139 H Calcium (8.0 - 10.5 mg/dL) 8.5 8.9 Laboratory Tests 05/10 530 Hematology WBC (4.5 - 11.0 x10 3/uL) 16.4 H RBC (3.54 - 5.02 x10 6/uL) 2.73 L Hgb (11.0 - 15.0 g/dL) 7.5 L Hct (33.0 - 45.0 %) 24.5 L MCV (81.0 - 99.0 fL) 89.7 MCH (27.0 - 33.0 pg) 27.5 MCHC (33.0 - 37.0 g/dL) 30.6 L RDW (11.5 - 14.5 %) 14.6 H Plt Count (150 - 400 x10 3/uL) 508 H MPV (7.0 - 9.0 fL) 9.7 H Neut % (Auto) (56.0 - 77.0 %) 86.5 H Lymph % (Auto) (14.0 - 32.0 %) 6.9 L [place] % (Auto) (4.8 - 9.0 %) 4.4 L Eos % (Auto) (0.3 - 3.7 %) 0.1 L Baso % (Auto) (0.0 - 2.0 %) 0.1 Neut # (Auto) (2.0 - 7.6 x10 3/uL) 14.21 H Lymph # (Auto) (1.0 - 3.8 x10 3/uL) 1.14 [place] # (Auto) (0.1 - 0.8 x10 3/uL) 0.73 Eos # (Auto) (0.0 - 0.2 x10 3/uL) 0.01 Baso # (Auto) (0.0 - 0.2 x10 3/uL) 0.02 Abs Immat Gran (auto) (0.00 - 0.03 x10 3/uL) 0. 33 H Add Manual Diff NO Immature Gran % (0.0 - 2.0 %) 2.0 Nucleated RBC % (0 - 0 %) 0.0 Nucleated RBCs # (Man) (0.0 - 0.1 x10 3/uL) 0.0 0 Results: labs reviewed, vital signs stable Diagnosis, Assessment Plan Problem List/A P: 1. Abdominal abscess 2. Cellulitis, abdominal wall Free Text A P: Doing well Wound cultures noted Continue abx per ID - IV Zosyn Local wound care, Change packing daily Diet as tolerated DARIAN - monitor renal fxn, Off Vanc, Renal US orde red Repeat labs in AM Plan discussed with: patient, ID OluIn Emmanuelle 05/11/20 1330: Attestations Physician Attestation Agree w/findings plan: I have personally interviewe d and examined the pt. All charts, labs and imaging studies were reviewed. Wound looks good. Dressin g changes daily. I agree with the СЕРГЕЙ's exam and plan. Electronically Signed by Dominga Child on at 1533 Electronically Signed by OluIn Emmanuellebryan [place] on 0 at 1331 RPT #:[id number] END OF REPORT 2020-05-10 13:11:00-00:00 [facility] ([facility] Hospitalist Progress Note REPORT#:[id number] REPORT STATUS: Signed DATE:05/10/20 TIME: 1311 PATIENT: LAKSHMI BATES UNIT #: [id number] ROOM/BED: 5520-1 : 60 AGE: 60 SEX: F ATTEND: Wan Marc DO ADM AUTHOR: Mynor Hines MD * ALL edits or amendments must be made on the [employer]/computer document * Subjective Chief Complaint: AMBULATING SLOWLY IN HER [place] M, C/O HAND SWELLINGS FROM IVF, EATING OK. INFORMED OF TRT PLAN, ID TO EVAL AND D/C IVF Objective General VS/I O: Vital Signs: Date Time Temp Pulse Resp B/P B/P Pulse O2 O2 F low FiO2 Mean Ox Delivery Rate 05/10 1130 97.9 59 16 178/78 111.4 100 Room ai r 05/10 0850 97.5 59 14 144/84 103.8 97 Room air 05/10 0351 98.2 52 16 117/72 87.1 95 Room air 05/09 2314 98 Room air 21 05/09 1940 98.2 60 16 144/79 100.4 96 Room air 05/09 1552 98.4 59 16 141/84 102.8 96 Room air 05/09 1447 98.8 60 16 118/74 89.0 95 Room air 05/09 1405 97.9 59 16 119/79 92.4 94 24 hour I O ending at 0700: 05/10 0700 05/09 1900 Intake Total 720 Output Total Balance 720 Intake, Oral 720 Number Voids 5 PATIENT WEIGHT: Weight (lb): 186 Weight (oz): 15.23 Weight (kg): 84.800 Medications: Active Meds + DC'd Last 24 Hrs Hydrocodone Bitart/Acetaminophen 1 TAB Q4H PRN P RN PO Hydrocodone Bitart/Acetaminophen 1 TAB Q4H PRN P RN PO Ondansetron HCl 4 MG Q6H PRN PRN IV Sodium Chloride 10 ML ASDIR IV Fentanyl Citrate 100 MCG PACU Q10MIN PRN PRN IV (DC) Fentanyl Citrate 50 MCG PACU Q10MIN PRN PRN IV ( DC) Hydralazine HCl 2 MG PACU Q10MIN PRN PRN IV (DC) Hydrocodone Bitart/Acetaminophen 1 TAB PACU ONCE PO (DC) Hydromorphone HCl 1 MG PACU Q10MIN PRN PRN IV (D C) Hydromorphone HCl 0.5 MG PACU Q5MIN PRN PRN IV ( DC) Insulin Human Lispro 0 PACU ONCE PRN SUBQ (DC) Labetalol HCl 5 MG PACU Q10MIN PRN PRN IV (DC) Lactated Ringer's 1,000 ML .Q24H IV (DC) Meperidine HCl 12.5 MG PACU ONCE PRN IV (DC) Morphine Sulfate 2 MG PACU Q10MIN PRN PRN IV (DC ) Ondansetron HCl 4 MG PACU ONCE PRN IV (DC) Promethazine HCl 25 MG PACU ONCE PRN IM (DC) Ropivacaine 150 MG ASDIR PRN LOCAL (DC) Sodium Chloride 1,000 ML .Q24H IV (DC) Tramadol HCl 50 MG PACU ONCE PO (DC) Vancomycin HCl 1,250 MG Q12H IV Sodium Chloride 250 ML Progesterone 200 MG BEDTIME PO Miscellaneous Information 1 EACH ASDIR IV (CKD) Enoxaparin Sodium 40 MG Q24H SUBQ (DA) Piperacillin Sod/Tazobactam Sod 3.375 GM Q8H IV Sodium Chloride 100 ML Acetaminophen 650 MG Q4H PRN PRN PO (DC) Al Hydrox/Mg Hydrox/Simethicone 30 ML Q4H PRN MD N PO Docusate Sodium 100 MG BID PRN PRN PO Hydralazine HCl 10 MG Q6H PRN PRN IV Hydrocodone Bitart/Acetaminophen 1 TAB Q6H PRN P RN PO (DC) Morphine Sulfate 4 MG Q4H PRN PRN IV Ondansetron HCl 4 MG Q4H PRN PRN IV Sodium Chloride 1,000 ML .Q10H IV (DC) Physical Exam General appearance: obese, alert, awake, oriente d Neck: no JVD Cardiovascular: normal heart sounds, regular rat e rhythm Respiratory: clear to auscultation Abdomen: obese, tenderness, SUPRAPUBIC WOUND PARTIALLY SEEN WITH TRACKING HOLE, AND PARTLY DRESSED. Extremities: no edema 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, oriented X 3, normal speech, n o motor deficits Results Findings/Data: Laboratory Tests 05/10 05/10 0906 0530 Chemistry Sodium (134 - 147 mEq/L) 134 134 Potassium (3.4 - 5.0 mEq/L) 3.8 4.0 Chloride (100 - 108 mEq/L) 104 105 Carbon Dioxide (21 - 33 mEq/l) 22 22 Anion Gap (0 - 20) 12 11 BUN (7 - 18 mg/dL) 12 12 Creatinine (0.6 - 1.3 mg/dL) 1.7 H 1.6 H Glomerular Filtr Rate (80 - 90) 30.7 L 32.9 L Glucose (70 - 110 mg/dL) 159 H 139 H Calcium (8.0 - 10.5 mg/dL) 8.5 8.9 Laboratory Tests 05/10 0530 Hematology WBC (4.5 - 11.0 x10 3/uL) 16.4 H RBC (3.54 - 5.02 x10 6/uL) 2.73 L Hgb (11.0 - 15.0 g/dL) 7.5 L Hct (33.0 - 45.0 %) 24.5 L MCV (81.0 - 99.0 fL) 89.7 MCH (27.0 - 33.0 pg) 27.5 MCHC (33.0 - 37.0 g/dL) 30.6 L RDW (11.5 - 14.5 %) 14.6 H Plt Count (150 - 400 x10 3/uL) 508 H MPV (7.0 - 9.0 fL) 9.7 H Neut % (Auto) (56.0 - 77.0 %) 86.5 H Lymph % (Auto) (14.0 - 32.0 %) 6.9 L [place] % (Auto) (4.8 - 9.0 %) 4.4 L Eos % (Auto) (0.3 - 3.7 %) 0.1 L Baso % (Auto) (0.0 - 2.0 %) 0.1 Neut # (Auto) (2.0 - 7.6 x10 3/uL) 14.21 H Lymph # (Auto) (1.0 - 3.8 x10 3/uL) 1.14 [place] # (Auto) (0.1 - 0.8 x10 3/uL) 0.73 Eos # (Auto) (0.0 - 0.2 x10 3/uL) 0.01 Baso # (Auto) (0.0 - 0.2 x10 3/uL) 0.02 Abs Immat Gran (auto) (0.00 - 0.03 x10 3/uL) 0. 33 H Add Manual Diff NO Immature Gran % (0.0 - 2.0 %) 2.0 Nucleated RBC % (0 - 0 %) 0.0 Nucleated RBCs # (Man) (0.0 - 0.1 x10 3/uL) 0.0 0 Free Text Obj Notes Free Text Obj Notes: General appearance: alert, awake, oriented Head/Eyes: atraumatic, normocephalic ENT: moist mucosal membranes, normal pharynx Neck: non-tender, supple/no meningismus, no JVD Cardiovascular: normal capillary refill, normal heart sounds, regular rate rhythm Respiratory: aerating well, clear to auscultatio n, symmetric expansion Abdomen: Tender to palpation , normal bowel sounds, erythema and skin induration in the lower abdomen and pelvis Extremities: no clubbing, no cyanosis, no edema 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, oriented X 3, CNII-XII intact Skin: dry, intact Psychiatry: normal affect, normal judgment/insig ht Diagnosis, Assessment Plan Hospital course to date: 1. POST OP WOUND INFECTION WITH POLYMICROBIAL ( ENTEROCOCCUS/E.COLI), S/P DEBRIDEMENT (FAT NECROSIS/PURULENCE IN OP REPORT ) - CONT ZOSYN/VANC AT RENAL DOSE, I SPOKE TO DR. BOWER WH O WILL EVAL AND CONSIDER CHANGING TO UNASYN, GS SEEN Will start patient on IV Zo syn due to cellulitis and abscess of abdominal wall. 2. ARF DUE TO SEPSIS/ATN, P OSSIBLE VANC INDUCED - HOLD VANC, RENAL, GET US, UA, FENA, CONSIDER UR. EOSINPHILS Antibiotics as above. General surgery consulted for drainage of abdominal abscess. Will need to send fluid for Gram stain and culture 3. Anemia OF CD, RECENT BLOOD LOSS FROM ABDOMIN OPLASY Hemoglobin 9.3, will monitor. Transfuse PRBCs f or hemoglobin less than 7.0. 4. Hyponatremia - RESOLVED, D/C IVF DUE TO FLUI D OL, AND EATING NOW 5. Sepsis, POA - ABOVE Patient meets criteria for sepsis due to fever and leukocytosis, source abdominal cellulitis and abscess. Continue fluid resuscitation with IV normal saline, will treat with IV Zosyn as above. I SPENT 35 MINUTES ON REVIEWING CHART, LABS, ZULEIKA TS, MEDS, PROGRESS NOTES, TRT PLAN, AND DISCUSSION WITH THE PATIENT, HER NURSE , PHARMACY, AND DR. BOWER FROM [place]. Problem List/A P: 1. Cellulitis, abdominal wall Will start patient on IV Zo syn due to cellulitis and abscess of abdominal wall. 2. Abdominal abscess Antibiotics as above. General surgery consulted for drainage of abdominal abscess. Will need to send fluid for Gram stain and culture 3. Anemia Hemoglobin 9.3, will monitor. Transfuse PRBCs f or hemoglobin less than 7.0. 4. Hyponatremia 5. Sepsis Patient meets criteria for sepsis due to fever and leukocytosis, source abdominal cellulitis and abscess. Continue fluid resuscitation with IV normal saline, will treat with IV Zosyn as above. Electronically Signed by Mynor Hines MD on 05/10 at 1321 RPT #:[id number] END OF REPORT 2020-05-10 10:51:00-00:00 [id number] [place] [address] PATIENT NAME: LAKSHMI BATES ADMIT DATE: 05/08/20 ACCOUNT NO: [id number] ROOM NO: 5520 AGE: 60 REPORT TYPE: OPERATIVE REPORT SEX: F ADMITTING PHYSICIAN:Arjun Marc DO ATTENDING PHYSICIAN:Arjun Marc DO OPERATION DATE: 05/09/2020 PREOPERATIVE DIAGNOSIS: Postoperative wound infe ction, status post abdominoplasty. POSTOPERATIVE DIAGNOSIS: Postoperative wound inf ection, status post abdominoplasty. PROCEDURE: Incision and drainage of right abdomi nal postoperative wound infection. SURGEON: Kayla Raines MD WET ROOM WORKER: Dominga Child PA-C ANESTHESIA: General. COMPLICATION: None. INDICATIONS: The patient is a 60-year-old female who had undergone abdominoplasty in another facility. She was jaeger sferred here from an [facility] freestanding ER for wound care. The lore ent will need incision and drainage of the right lateral abdominal wall today. PROCEDURE IN DETAIL: The patient was barbie stephenie in supine position. After adequate general anesthesia, the patient's abdomen was pr epped and draped in sterile fashion. Her prior abdominoplasty area was noted . An incision was made on the incision on the right lateral aspect. The wound was then opened. Purulent drainage was obtained. Cultures were obt ained. After adequate drainage of this area and after obtaining adequate hemostasis, [facility] wound was then copiously irrigated with antibiotic-containing solution an d Betadine-soaked gauze was placed in the cavity. Another area was noted in the suprapubic area and this was opened and drained and cultures were obtained also and then this wound was also packed with Betadine-soaked gauze. Sterile dressing was applied. The patient was then extubated and transferred to [facility] recovery room without incident. The patient tolerated the procedure we ll. My embroidery assistant helped with exposure and dressing the wound. Dictated By: In Emmanuelle Raines MD WT: OP:RYLEE/MICAELA/LORIN PATIENT NAME: LAKSHMI BATES 64 Conf#: [id number]/DID#: [id number] Authenticated by In Emmanuelle Raines MD On 05/10/2020 06:0 7:42 PM Electronically Signed by In Emmanuelle Raines MD on at 1808 PATIENT NAME: LAKSHMI BATES 64 2020-05-09 12:31:00-00:00 [facility]) Brief Op Note REPORT#:[id number] REPORT STATUS: Signed DATE:05/09/20 TIME: 1231 PATIENT: LAKSHMI BATES UNIT #: [id number] ROOM/BED: 5520-1 : 60 AGE: 60 SEX: F ATTEND: Wan Marc riscarmen DO ADM AUTHOR: Dominga Child * ALL edits or amendments must be made on the el [employer]/computer document * Op/Inv Proc Note - Brief Pre-procedure diagnosis: Post op wound infection, abdominal wall abscess Post-procedure diagnosis: same as pre procedure dx Procedures performed: I D of right lateral and suprapubic abdominal wo und/abscess Primary Surgeon: Dr. Olu COL[place]ADO, FACS Roster Clerk(s): Dominga Child PA-C Findings: copious pus and fat necrosis; irrigated with 1L gentamycin/saline Complications: none Estimated blood loss in ml's: 10mL Specimens removed/altered: cultures taken x 2 Disposition: return to floor Electronically Signed by Dominga Child on at 1234 RPT #:[id number] END OF REPORT 2020-05-09 12:31:00-00:00 [facility] ([facility]) Brief Op Note REPORT#:[id number] REPORT STATUS: Signed DATE:05/09/20 TIME: 123 PATIENT: LAKSHMI BATES UNIT #: [id number] ROOM/BED: [place] [address] : 60 AGE: 60 SEX: F ATTEND: Wan Marc DO ADM AUTHOR: Dominga Child * ALL edits or amendments must be made on the el [employer]/computer document * Op/Inv Proc Note - Brief Pre-procedure diagnosis: Post op wound infection, abdominal wall abscess Post-procedure diagnosis: same as pre procedure dx Procedures performed: I D of right lateral and suprapubic abdominal wo und/abscess Primary Surgeon: Dr. Olu COLORADO, FACS Roster Clerk(s): Dominga Child PA-C Findings: copious pus and fat necrosis; irrigated with 1L gentamycin/saline Complications: none Estimated blood loss in ml's: 10mL Specimens removed/altered: cultures taken x 2 Disposition: return to floor Electronically Signed by Dominga Child on at 1234 Electronically Signed by Kayla Raines MD on 0 at 1431 RPT #:[id number] END OF REPORT 2020-05-09 09:43:00-00:00 [facility] ([facility]) Hospitalist Progress Note REPORT#:[id number] REPORT STATUS: Signed DATE:05/09/20 TIME: 942 PATIENT: LAKSHMI BATES UNIT #: [id number] ROOM/BED: [place] [address] : 60 AGE: 60 SEX: F ATTEND: Wan Marc luzcarmen DO ADM AUTHOR: Xavier Barrientos MD * ALL edits or amendments must be made on the [employer]/computer document * Subjective Chief Complaint: I D of the abdominal abscess today Objective General VS/I O: Vital Signs: Date Time Temp Pulse Resp B/P B/P Pulse O2 O2 Flow FiO2 Mean Ox Delivery Rate 05/09 1255 98.8 70 20 118/65 96 Room air 05/09 1250 71 23 129/75 95 05/09 1245 76 24 126/70 100 05/09 1240 72 23 125/67 100 05/09 1237 Simple 9 mask 05/09 1235 80 20 116/58 100 05/09 1233 100.3 60 16 100/50 100 Simple 9 mask 05/09 0945 99.2 71 18 135/55 98 Room air 05/09 0736 98.2 61 16 138/84 101.9 95 Room air 05/09 0353 98.4 66 16 129/74 92.2 95 Room air 05/08 2259 99.3 67 16 121/70 86.8 95 Room air 05/08 1846 98.8 65 16 128/82 97.3 95 Room air 05/08 1713 98.8 60 18 124/78 93.2 96 Room air 24 hour I O ending at 0700: 05/09 0700 05/08 1900 Intake Total 1440.00 Output Total Balance 1440.00 Intake, IV 700.00 Intake, Oral 740 Number Voids 1 3 Patient 84.8 kg Weight Weight Standing scale Measurement Method PATIENT WEIGHT: Weight (lb): 186 Weight (oz): 15.23 Weight (kg): 84.800 Medications: Active Meds + DC'd Last 24 Hrs Hydrocodone Bitart/Acetaminophen 1 TAB Q4H PRN P RN PO Hydrocodone Bitart/Acetaminophen 1 TAB Q4H PRN P RN PO Ondansetron HCl 4 MG Q6H PRN PRN IV Sodium Chloride 10 ML ASDIR IV Gentamicin Sulfate 0 .STK-MED ONE .ROUTE (DC) Phenylephrine HCl 0 .STK-MED ONE I-MARGAUX (DC) Fentanyl Citrate 0 .STK-MED ONE .ROUTE (DC) Lidocaine HCl 0 .STK-MED ONE .ROUTE (DC) Fentanyl Citrate 100 MCG PACU Q10MIN PRN PRN IV Fentanyl Citrate 50 MCG PACU Q10MIN PRN PRN IV Hydralazine HCl 2 MG PACU Q10MIN PRN PRN IV Hydrocodone Bitart/Acetaminophen 1 TAB PACU ONCE PO (CKD) Hydromorphone HCl 1 MG PACU Q10MIN PRN PRN IV Hydromorphone HCl 0.5 MG PACU Q5MIN PRN PRN IV Insulin Human Lispro 0 PACU ONCE PRN SUBQ Labetalol HCl 5 MG PACU Q10MIN PRN PRN IV Lactated Ringer's 1,000 ML .Q24H IV Meperidine HCl 12.5 MG PACU ONCE PRN IV Morphine Sulfate 2 MG PACU Q10MIN PRN PRN IV Ondansetron HCl 4 MG PACU ONCE PRN IV Promethazine HCl 25 MG PACU ONCE PRN IM Ropivacaine 150 MG ASDIR PRN LOCAL Sodium Chloride 1,000 ML .Q24H IV Tramadol HCl 50 MG PACU ONCE PO (CKD) Fentanyl Citrate 0 .STK-MED ONE .ROUTE (DC) Dexamethasone Sodium Phosphate 0 .STK-MED ONE .R OUTE (DC) Lidocaine HCl 0 .STK-MED ONE .ROUTE (DC) Midazolam HCl 0 .STK-MED ONE .ROUTE (DC) Ondansetron HCl 0 .STK-MED ONE .ROUTE (DC) Propofol 20 ML .STK-MED ONE IV (DC) Rocuronium [place] 0 .STK-MED ONE IV (DC) Vancomycin HCl 1,250 MG Q12H IV Sodium Chloride 250 ML Progesterone 200 MG BEDTIME PO Vancomycin HCl 1,750 MG ONCE ONE IV (DC) Sodium Chloride 500 ML Miscellaneous Information 1 EACH ASDIR IV (CKD) Enoxaparin Sodium 40 MG Q24H SUBQ (CKD) Piperacillin Sod/Tazobactam Sod 3.375 GM Q8H IV Sodium Chloride 100 ML Acetaminophen 650 MG Q4H PRN PRN PO Al Hydrox/Mg Hydrox/Simethicone 30 ML Q4H PRN MD N PO Docusate Sodium 100 MG BID PRN PRN PO Hydralazine HCl 10 MG Q6H PRN PRN IV Hydrocodone Bitart/Acetaminophen 1 TAB Q6H PRN P RN PO Morphine Sulfate 4 MG Q4H PRN PRN IV Ondansetron HCl 4 MG Q4H PRN PRN IV Sodium Chloride 1,000 ML .Q10H IV Nutrition assessment: The data set between the solid lines has been im ported from the dietitian's assessment. Any exceptions have been noted under Provider comments. BMI Calculated: 34.2 Nutrition related diagnosis: Nutrition diagnosis details: Nutrition problem: Nutrition etiology: Nutrition signs and symptoms: Nutrition prescription: Dietitian name: Assessment completed: Provider comments on imported dietitian assessme nt: Physical Exam General appearance: obese, alert, awake, oriente d Head/Eyes: atraumatic, clear cornea, EOMI, mohsen l conjunctiva/sclera, PERRLA ENT: moist mucosal membranes Cardiovascular: normal heart sounds, regular rat e rhythm Respiratory: clear to auscultation Abdomen: tenderness Extremities: moves all, no edema 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, oriented X 3, CNII-XII intact, normal speech, no motor deficits, no sensory deficits Considered stroke alert: no Results Findings/Data: Laboratory Tests 05/09 418 Chemistry Sodium (134 - 147 mEq/L) 134 Potassium (3.4 - 5.0 mEq/L) 3.6 Chloride (100 - 108 mEq/L) 105 Carbon Dioxide (21 - 33 mEq/l) 23 Anion Gap (0 - 20) 10 BUN (7 - 18 mg/dL) 8 Creatinine (0.6 - 1.3 mg/dL) 0.7 Glomerular Filtr Rate (80 - 90) 85.4 Glucose (70 - 110 mg/dL) 118 H Calcium (8.0 - 10.5 mg/dL) 8.5 Laboratory Tests 05/09 418 Hematology WBC (4.5 - 11.0 x10 3/uL) 12.8 H RBC (3.54 - 5.02 x10 6/uL) 2.67 L Hgb (11.0 - 15.0 g/dL) 7.5 L Hct (33.0 - 45.0 %) 24.5 L MCV (81.0 - 99.0 fL) 91.8 MCH (27.0 - 33.0 pg) 28.1 MCHC (33.0 - 37.0 g/dL) 30.6 L RDW (11.5 - 14.5 %) 14.6 H Plt Count (150 - 400 x10 3/uL) 541 H MPV (7.0 - 9.0 fL) 9.8 H Neut % (Auto) (56.0 - 77.0 %) 77.9 H Lymph % (Auto) (14.0 - 32.0 %) 10.6 L [place] % (Auto) (4.8 - 9.0 %) 8.5 Eos % (Auto) (0.3 - 3.7 %) 1.3 Baso % (Auto) (0.0 - 2.0 %) 0.3 Neut # (Auto) (2.0 - 7.6 x10 3/uL) 9.97 H Lymph # (Auto) (1.0 - 3.8 x10 3/uL) 1.36 [place] # (Auto) (0.1 - 0.8 x10 3/uL) 1.09 H Eos # (Auto) (0.0 - 0.2 x10 3/uL) 0.16 Baso # (Auto) (0.0 - 0.2 x10 3/uL) 0.04 Abs Immat Gran (auto) (0.00 - 0.03 x10 3/uL) 0. 18 H Add Manual Diff NO Immature Gran % (0.0 - 2.0 %) 1.4 Nucleated RBC % (0 - 0 %) 0.0 Nucleated RBCs # (Man) (0.0 - 0.1 x10 3/uL) 0.0 0 Laboratory Tests 05/09 0200 Serology SARS-CoV-2 Ag (Rapid) (Negative) Negative Radiology data: Recent Impressions: RADIOLOGY - XR CHEST 1 V 05/09 1108 Report Impression - Status: SIGNED Entered: 05/09/2020 1115 IMPRESSION: No acute abnormality as above discussed. SL: [id number] Impression By: [email or web address] - Francesco Lowe M.D. Free Text Obj Notes Free Text Obj Notes: General appearance: alert, awake, oriented Head/Eyes: atraumatic, normocephalic ENT: moist mucosal membranes, normal pharynx Neck: non-tender, supple/no meningismus, no JVD Cardiovascular: normal capillary refill, normal heart sounds, regular rate rhythm Respiratory: aerating well, clear to auscultatio n, symmetric expansion Abdomen: Tender to palpation , normal bowel sounds, erythema and skin induration in the lower abdomen and pelvis Extremities: no clubbing, no cyanosis, no edema 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, oriented X 3, CNII-XII intact Skin: dry, intact Psychiatry: normal affect, normal judgment/insig ht Diagnosis, Assessment Plan Hospital course to date: 05/09/2020: Scheduled for I D of the abdominal abscess as p er general surgery today Wound culture growing gram- negative apolinar, blood culture no growth for 24 hours. Continue Zosyn and vancomycin till blood culture is cleared. Hemoglobin dropped from 9 to 7.5. Likely diluti onal, monitor H H. Continue inpatient care Problem List/A P: 1. Cellulitis, abdominal wall Will start patient on IV Zo syn due to cellulitis and abscess of abdominal wall. 2. Abdominal abscess Antibiotics as above. General surgery consulted for drainage of abdominal abscess. Will need to send fluid for Gram stain and culture 3. Anemia Hemoglobin 9.3, will monitor. Transfuse PRBCs f or hemoglobin less than 7.0. 4. Hyponatremia 5. Sepsis Patient meets criteria for sepsis due to fever and leukocytosis, source abdominal cellulitis and abscess. Continue fluid resuscitation with IV normal saline, will treat with IV Zosyn as above. Quality: Gen Med Crit Care Current Medications Current medication review: I attest that the foregoing medication list in [facility] medical record is true, accurate, and complete to the best of my knowled ge. Electronically Signed by Xavier Barrientos MD on 0 at 1326 RPT #:[id number] END OF REPORT 2020-05-09 09:36:00-00:00 [id number] [place] [address] PATIENT NAME: LAKSHMI BATES ADMIT DATE: 05/08/20 ACCOUNT NO: [id number] [place]OM [place]: [facility] [place] AGE: 60 REPORT TYPE: eELECTROCARDIOGRAM REPORT SEX: F ADMITTING PHYSICIAN:Arjun Marc DO ATTENDING PHYSICIAN:Arjun Marc DO Order: [id number] Test Reason : PRE OP PROTOCOL Test Date/Time Stamp: SatMay 09 2020 09:36:21 Blood Pressure : / mmHG Vent. Rate : 069 BPM Atrial Rate : 069 BPM P-R Int : 168 ms QRS Dur : 122 ms QT Int : 408 ms P-R-T Axes : 046 -47 037 degree s QTc Int : 437 ms Normal sinus rhythm with sinus arrhythmia Left anterior fascicular block Abnormal ECG When compared with ECG of 29-JAN-2014 22:41, Significant changes have occurred Confirmed by JUAN WEATHERS MD ([id number]) on 10:08:31 AM Referred By: Self Referred Confirmed by:FLORENCIO WEATHERS MD at 1008 PATIENT NAME: LAKSHMI BATES 64 2020-05-08 11:01:00-00:00 [facility]-Vancom[facility] REPORT#:[id number] REPORT STATUS: Signed DATE:05/08/20 TIME: 1101 PATIENT: LAKSHMI BATES UNIT #: [id number] ROOM[address]BED: [address] : 60 AGE: 60 SEX: F ATTEND: Brandon Marc DO ADM AUTHOR: Allyson Self [facility] * ALL edits or amendments must be made on the [employer]/computer document * Vancomycin Vancomycin Goal trough: 15-20 mcg/ml Indication for treatment: Sepsis Current therapy: New start Day of therapy: VS and I/O: Vital Signs Date Temp Pulse Resp B/P B/P Mean Pulse Ox FiO2 05/08 98.2 56-59 14-20 121/71-73 87.9-89.2 95-9 9 72 hours ending at 0700 05/08 0700 05/07 1900 05/07 0700 05/06 1900 05/05 0700 1900 Intake 30.00 Total Output Total Balance 30.00 Intake, IV 30.00 Number 1 Voids 72 Hour I O Total 05/08 0700 05/07 0700 05/06 0700 Intake Total 30.00 Output Total Balance 30.00 Labs: Microbiology: 05/08 1043 ABDOMINAL: Wound Culture - ORD 05/08 1043 BLOOD: Blood Culture - ORD 05/08 1043 BLOOD: Blood Culture - ORD Treatment plan: consult, initiation of therapy Regimen: 68-year-old female with past medical history of arrhythmia status post pacemaker placement and recent abdominoplasty on 0 presents as a transfer from [facility] in [facility] due to ab dominal pain since last Saturday, 2019. Patient reports 7/10 abdominal pain worse in the right lower quadrant, associated with fevers, chills, and loca lized swelling. Patient also admits to yellow drainage from the area. Pharmacy has been consulted to dose vancomycin. Consulting MD: Dr. Xavier Barrientos Indication: Sepsis Trough goal: 15-20 mcg/mL 05/08 A P: 1. Vitals - Afebrile, BP stable, satting 95% on room air. 2. Labs - WBC 15.7, BUN 8, SCr 0.5, UOP not yet documented, CrCL >100mL/min. 3. Micro - Blood cx: ordered. Abdominal wound cx : ordered. 4. Imaging - CT A/P from OSH showed evid ence of multiple intra-abdominal fluid collections with bubbles gas. 5. Dosing Monitoring - Patient reportedly got a dose of vancomycin at OSH ED, but it's unclear how much. Reload patient with 1 750mg IV x1 dose (20mg/kg) followed by a maintenance regimen of 1250mg IV Q 12H. Will plan for a level at steady state. Thank you for the consult. Pharmacy will continu e to follow. Electronically Signed by Allyson Self [facility] on at 1227 RPT #:[id number] END OF REPORT 2020-05-08 10:45:00-00:00 [facility] ([facility]) Clinical Note REPORT#:[id number] REPORT STATUS: Signed DATE:05/08/20 TIME: 1045 PATIENT: LAKSHMI BATES UNIT #: [id number] ROOM/BED: [place] [address] : 60 AGE: 60 SEX: F ATTEND: Wan Marc DO ADM AUTHOR: Xavier Barrientos MD * ALL edits or amendments must be made on the [employer] document * Clinical Note Note: Patient has been seen and admitted by my colleag ue Dr. Galindo early in the morning. I have seen and examined the patient. Continues to have pain and discharge. Waiting for general surgery to see th e patient. On Zosyn, started on vancomycin. Pharmacy consult for vanc omycin. CBC, BMP, blood culture, wound culture ordered. Patient was given Zosyn and van comycin at the outside facility. Continue current management. Electronically Signed by Xavier Barrientos MD on 0 at 1400 RPT #:[id number] END OF REPORT 2020-05-08 03:26:00-00:00 [facility] ([facility]) Hospitalist History Physical REPORT#:[id number] REPORT STATUS: Signed DATE:05/08/20 TIME: 0326 PATIENT: LAKSHMI BATES UNIT #: [id number] ROOM/BED: [place] [address] : 60 AGE: 60 SEX: F ATTEND: Wan Marc ristopher DO ADM AUTHOR: Arjun Marc DO * ALL edits or amendments must be made on the [employer] document * History of Present Illness HPI Chief complaint: Abdominal pain and fever PCP: PCP: Dr. Marco augustin HPI: 68-year-old female with past medical history of arrhythmia status post pacemaker placement and recent abdominoplasty on 0 presents as a transfer from [facility] in [facility] due to ab dominal pain since last Saturday, 2019. Patient reports 7/10 abdominal pain worse in the right lower quadrant, associated with fevers, chills, and loca lized swelling. Patient also admits to yellow drainage from the area. She states that s he went to see her surgeon on , who said that everything was normal. Today patient presented to [facility] in [facility], where a CT of her abdomen and pelvis with contrast showed evidence of 18 x 3 x 9 cm crescent-shaped subcutaneous fluid collection overlying the ante rior right lower abdomen and right flank containing bubbles of gas. A second 12 x 2 x 4 cm subcutaneous fluid collection with bubbles of gas is seen in the soft tissues just superior to the pubic symphysis. A 4.8 cm right adrenal a denoma is noted. Patient was treated with vancomycin and Zosyn in add ition to IV fluids for sepsis. She was transferred to [facility] for higher level of care. History Past Medical Surgical Hx Patient History: 1. Arrhythmia Additional surgical history: Pacemaker placement Abdominoplasty Family History Additional family history: Mother hypertension Social History Alcohol use: Denies EtOH use Drug use: Denies recreational drugs Smoking status for patients 13 years old or olde r: Never Smoker Medication/Allergy-Vaccine Hx Allergies: Coded Allergies: No Known Allergies (01/29/14) Review of Systems Free Text ROS Notes Free Text ROS Notes: 14 point review of systems o btained, pertinent positives and negatives noted in HPI Physical Exam VS/I O: Vital Signs Date Temp Pulse Resp B/P B/P Mean Pulse Ox FiO2 05/08 98.2 56 20 121/73 89.2 99 Last Documented: Result Date Time Pulse Ox 99 05/08 0238 B/P 121/73 05/08 0238 B/P Mean 89.2 05/08 0238 Temp 98.2 05/08 0238 Pulse 56 05/08 0238 Resp 20 05/08 0238 24 hour I O ending at 0700: 05/08 0700 05/07 1900 Intake Total 30.00 Output Total Balance 30.00 Intake, IV 30.00 Number Voids 1 Patient Weight and BMI Weight (kg): BMI: Results Results: labs reviewed, vital signs stable Free Text PE Notes Free Text PE Notes: General appearance: alert, awake, oriented Head/Eyes: atraumatic, normocephalic ENT: moist mucosal membranes, normal pharynx Neck: non-tender, supple/no meningismus, no JVD Cardiovascular: normal capillary refill, normal heart sounds, regular rate rhythm Respiratory: aerating well, clear to auscultatio n, symmetric expansion Abdomen: Tender to palpation , normal bowel sounds, erythema and skin induration in the lower abdomen and pelvis Extremities: no clubbing, no cyanosis, no edema 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, oriented X 3, CNII-XII intact Skin: dry, intact Psychiatry: normal affect, normal judgment/insig ht Diagnosis, Assessment Plan Problem List/A P: 1. Cellulitis, abdominal wall Will start patient on IV Zo syn due to cellulitis and abscess of abdominal wall. 2. Abdominal abscess Antibiotics as above. General surgery consulted for drainage of abdominal abscess. Will need to send fluid for Gram stain and culture 3. Anemia Hemoglobin 9.3, will monitor. Transfuse PRBCs f or hemoglobin less than 7.0. 4. Hyponatremia 5. Sepsis Patient meets criteria for sepsis due to fever and leukocytosis, source abdominal cellulitis and abscess. Continue fluid resuscitation with IV normal saline, will treat with IV Zosyn as above. at 0713 RPT #:[id number] END OF REPORT
[2022-11-07] MEDS ORDERED: METOCLOPRAMIDE 10 MG/2mL INJ ONE (21:39)
[2022-11-07] MEDS ORDERED: DIPHENHYDRAMINE 50 MG/ML VIAL ONE (21:39)
[2022-11-07] MEDS ORDERED: KETOROLAC 30 MG/ML INJ ONE (21:39)
[2022-11-07] MEDS ORDERED: NA CHLORIDE 0.9% 50 ML ONE (21:39)
[2022-11-07 21:40] LABS: Hematocrit 39.2 % (36.0-45.0); Lymphocytes % 45.8 % (15.3-44.8); MCV 89.5 fL (80-100); MPV 7.4 fL (7.6-11.3); RBC Red Blood Cell Count 4.38 M/uL (3.86-4.86)
[2022-11-07 21:45] LABS: Protime INR 0.97
[2022-11-07 21:59] LABS: Albumin 3.7 g/dL (3.4-5.0); Bilirubin Direct 0.1 mg/dL (0-0.2); Bilirubin Indirect, Calculated 0.2 mg/dL (0.2-0.8); Bilirubin Total 0.3 mg/dL (0.2-1.0); Potassium 3.4 mEq/L (3.5-5.1); Protein, Total 7.6 g/dL (6.4-8.2)
--- NOTE | 2022-11-07 22:02 | RAD REPORT ---
EXAM DESCRIPTION: CT - CTHCSPWOC - 11/07/2022 9:34 pm CLINICAL HISTORY: DIZZINESS. Headache COMPARISON: No comparisons TECHNIQUE: Axial thin cut noncontrast CT images of the head were obtained. Axial thin cut noncontrast CT images of the cervical spine were obtained. Multiplanar reformatted images were generated and reviewed. All CT scans are performed using dose optimization technique as appropriate and may include automated exposure control or mA/KV adjustment according to patient size. FINDINGS: CT HEAD WITHOUT CONTRAST: No acute hemorrhage, hydrocephalus or extra-axial collection is identified.No areas of brain edema or midline shift. The paranasal sinuses and mastoids are clear.The calvarium is intact. CT CERVICAL SPINE WITHOUT CONTRAST: No fracture or subluxation.No prevertebral soft tissues swelling is identified. IMPRESSION: No acute traumatic intracranial or cervical spine findings.
[2022-11-07 22:46] LABS: Troponin High Sensitivity 106.6 pg/mL (<58.9)
--- NOTE | 2022-11-08 00:03 | EDPHYS ---
Physician Documentation [facility] Name: Crystal Bates Age: 62 yrs Sex: Female : 1960 Arrival Date: 11/07/2022 Time: 20:54 Bed 19 Private MD: ED Physician Julien Villalobos HPI: 11/07 21:15 This 62 yrs old Female presents to ER via Ambulatory with complaints of sp4 Dizziness, Headache, Blurred Vision. 21:17 . sp4 22:15 62-year-old female presents with acute onset headache associated with dizziness and sp4 blurred vision, headache is left-sided. Patient reports there is no prior history of headaches. She denies chest pain. She is concerned about stroke.. Historical: - PMHx: 21:12 Hypertension; kd3 - Immunization history:: Adult Immunizations up to date. - Social history:: Smoking status: Patient denies any tobacco usage or history of. - Family history:: not pertinent. ROS: 22:15 Constitutional: Negative for fever, chills, and weight loss, Eyes: Negative for injury, sp4 pain, redness, and discharge, ENT: Negative for injury, pain, and discharge, Neck: Negative for injury, pain, and swelling, Cardiovascular: Negative for chest pain, palpitations, and edema, Respiratory: Negative for shortness of breath, cough, wheezing, and pleuritic chest pain, Abdomen/GI: Negative for abdominal pain, nausea, vomiting, diarrhea, and constipation, Back: Negative for injury and pain, : Negative for injury, bleeding, discharge, and swelling, MS/Extremity: Negative for injury and deformity, Skin: Negative for injury, rash, and discoloration, Neuro: Negative for weakness, numbness, tingling, and seizure, positive headache and positive dizziness Psych: Negative for depression, anxiety, Allergy/Immunology: Negative for hives, rash, and allergies Endocrine: Negative for neck swelling, polydipsia, polyuria, polyphagia, and weight changes Hematologic/Lymphatic: Negative for swollen nodes, abnormal bleeding, and unusual bruising Exam: 22:15 Constitutional: This is a well developed, well nourished patient who is awake, alert, sp4 and in no acute distress. Head/Face: Normocephalic, atraumatic. Eyes: Pupils equal round and reactive to light, extra-ocular motions intact. Lids and lashes normal. Conjunctiva and sclera are not injected. Cornea within normal limits. Periorbital areas with no swelling, redness, or edema. Normal bilateral funduscopy, no papilledema. ENT: Nares patent. No nasal discharge, no septal abnormalities noted. Tympanic membranes are normal and external auditory canals are clear. Oropharynx with no redness, swelling, or masses, exudates, or evidence of obstruction, uvula midline. Mucous membranes moist. Neck: Trachea midline, no thyromegaly or masses palpated, and no cervical lymphadenopathy. Supple, full range of motion without nuchal rigidity, or vertebral point tenderness. Chest/axilla: Normal chest wall appearance and motion. Nontender with no deformity. No lesions are appreciated. Cardiovascular: Regular rate and rhythm with a normal S1 and S2. No gallops, murmurs, or rubs. Normal PMI, no JVD. No pulse deficits. Respiratory: Lungs have equal breath sounds bilaterally, clear to auscultation and percussion. No rales, rhonchi or wheezes noted. No increased work of breathing, no retractions or nasal flaring. Abdomen/GI: Soft, non-tender, with normal bowel sounds. No distension or tympany. No guarding or rebound. No evidence of tenderness throughout. Back: No spinal tenderness. No costovertebral tenderness. Skin: Warm, dry with normal turgor. Normal color with no rashes, no lesions, and no evidence of cellulitis. MS/ Extremity: Pulses equal, no cyanosis. Neurovascular intact. Full, normal range of motion. Neuro: Awake and alert, GCS 15, oriented to person, place, time, and situation. Cranial nerves II-XII grossly intact. Motor strength 5/5 in all extremities. Sensory grossly intact. Psych: Awake, alert, with orientation to person, place and time. Behavior, mood, and affect are within normal limits 11/08 00:05 ECG was reviewed by the Attending Physician. sp4 Vital Signs: 11/07 21:09 BP 152 / 89; Pulse 66; Resp 16; Temp 98.4(O); Pulse Ox 97% on R/A; Weight 84.37 kg; kd3 Height 5 ft. 2 in. ; 21:48 BP 160 / 80; Pulse 60; Resp 16; Pulse Ox 98% on R/A; ll3 23:04 BP 155 / 71; Pulse 55; Resp 17; Pulse Ox 98% on R/A; ll3 21:09 Body Mass Index 34.02 (84.37 kg, 157.48 cm) kd3 MDM: 21:26 Patient medically screened. 4 11/08 00:03 Differential diagnosis: cardiac arrhythmia, generalized weakness, hyperventilation, sp4 hypovolemia, idiopathic dizziness, near-syncope, syncope, TIA, vertigo. Data reviewed: vital signs, nurses notes, old medical records, lab test result(s), EKG, radiologic studies, CT scan. Consideration of Admission/Observation Patient was admitted/placed on observation. 00:05 Management of patient was discussed with the following: Hospitalist: Admitting team for [facility] Dr. Balderas. Windows Server Support Technician: Discussed with patient's ear flap binder on-call who advised admission here at [facility]. ED course: Patient and her report that her ear flap binder and commercial credit lead is at [facility]. Dr. Nick Tillman is patient's commercial credit lead at [facility] is telephone number [phone] . His partner returned call and said that [facility] she is at capacity not able to accept her at this time [facility] transfer center also said that hospitals at capacity. Patient is okay with admission here for troponin trending cardiology consultation. We will proceed with admission here. . 11/07 21:16 Order name: Basic Metabolic Panel; Complete Time: 22:48 4 11/07 21:16 Order name: CBC with Diff; Complete Time: 21:53 4 11/07 21:16 Order name: LFT's; Complete Time: 22:48 4 11/07 21:16 Order name: PT-INR; Complete Time: 21:53 4 11/07 21:16 Order name: Troponin HS; Complete Time: 22:48 sp4 11/08 00:04 Order name: Troponin High Sensitivity; Complete Time: 01:12 sp4 11/08 00:04 Order name: BNP; Complete Time: 01:12 sp4 11/08 00:24 Order name: DD; Complete Time: 01:12 la1 11/07 21:16 Order name: CT Head C Spine; Complete Time: 22:27 sp4 11/08 00:03 Order name: Chest Single View XRAY sp4 11/07 22:49 Order name: EKG; Complete Time: 22:49 sp4 11/07 21:16 Order name: IV Saline Lock; Complete Time: 21:27 sp4 11/07 21:16 Order name: Labs collected and sent; Complete Time: 21:27 sp4 11/07 21:16 Order name: O2 Per Protocol; Complete Time: :45 sp4 11/07 21:16 Order name: O2 Sat Monitoring; Complete Time: 21:45 sp4 11/07 22:49 Order name: EKG - Nurse/Tech; Complete Time: 23:03 sp4 EC:05 Rate is 58 beats/min. Rhythm is regular, Paced. Interpreted by me. sp4 Administered Medications: 11/07 21:45 Drug: metoCLOPramide IVP 10 mg Route: IVP; Site: right antecubital; ll3 22:38 Follow up: Response: No adverse reaction; Marked relief of symptoms ll3 21:45 Drug: diphenhydrAMINE IVP 25 mg Route: IVP; Site: right antecubital; ll3 22:38 Follow up: Response: No adverse reaction; Marked relief of symptoms ll3 21:45 Drug: Ketorolac IVP 30 mg Route: IVP; Site: right antecubital; ll3 22:38 Follow up: Response: No adverse reaction; Marked relief of symptoms 3 11/08 00:35 Drug: Lisinopril PO 5 mg Route: PO; ll3 01:18 Follow up: Response: No adverse reaction ll3 00:35 Drug: rosuvastatin Calcium Sprinkle 10 mg Route: Feeding Tube; ll3 01:18 Follow up: Response: No adverse reaction ll3 00:35 Drug: Aspirin PO Chewable Tablet 324 mg Route: PO; ll3 01:18 Follow up: Response: No adverse reaction ll3 00:35 Drug: Enoxaparin Sub-Q 90 mg Route: Sub-Q; Site: abdomen; ll3 01:18 Follow up: Response: No adverse reaction ll3 Disposition Summary: 11/08/22 00:02 Hospitalization Ordered Hospitalization Status: Inpatient Admission sp4 Provider: Austin Balderas sp4 Location: Telemetry/[facility] (Inpatient) sp4 Condition: Stable sp4 Problem: new sp4 Symptoms: have improved sp4 Bed/Room Type: Standard sp4 Room Assignment: 431(11/08/22 00:50) cg Diagnosis - Non-ST elevated [place], elevated troponin level sp4 Forms: - Medication Reconciliation Form sp4 - SBAR form sp4 Signatures: Dispatcher [employer] EDMS Jonas Gonzalez, PAUL-C FLIGHT COMMUNICATIONS OPERATOR-Cla1 Tg Crabtree RN RN Reuben Stoner RN RN ll3 Ranjana Saleh RN RN kd3 Julien Villalobos MD MD sp4 Corrections: (The following items were deleted from the chart) 00:50 00:02 sp4 cg
--- NOTE | 2022-11-08 00:03 | ER ---
Nurse's Notes [facility] Name: Crystal Bates Age: 62 yrs Sex: Female : 1960 Arrival Date: 11/07/2022 Time: 20:54 Bed 19 Private MD: Diagnosis: Non-ST elevated [place], elevated troponin level Presentation: 11/07 21:10 Chief complaint: Patient states: My head hurts on the left side and i started feeling kd3 really bad. It all started in the truck about 15 minutes ago. I was very dizzy. Coronavirus screen: Vaccine status: Patient reports receiving the 2nd dose of the covid vaccine. Ebola Screen: No symptoms or risks identified at this time. Initial Sepsis Screen: Does the patient meet any 2 criteria? No. Patient's initial sepsis screen is negative. Does the patient have a suspected source of infection? No. Patient's initial sepsis screen is negative. Risk Assessment: Do you want to hurt yourself or someone else? Patient reports no desire to harm self or others. Onset of symptoms was November 07, 2022. 21:10 Method Of Arrival: Ambulatory kd3 21:10 Acuity: SONIA 3 kd3 Triage Assessment: 21:12 Headache History: Denies prior headaches. General: Appears uncomfortable, Behavior is kd3 calm, cooperative. Pain: Complains of pain in left side headache. Pain: Pain currently is 10 out of 10 on a pain scale. Pain began suddenly, Also complains of inability to concentrate. Neuro: Level of Consciousness is awake, alert, obeys commands, Oriented to person, place, time, situation. Historical: - PMHx: 21:12 Hypertension; kd3 - Immunization history:: Adult Immunizations up to date. - Social history:: Smoking status: Patient denies any tobacco usage or history of. - Family history:: not pertinent. Screenin:47 Abuse screen: Denies threats or abuse. Denies injuries from another. Nutritional ll3 screening: No deficits noted. Tuberculosis screening: No symptoms or risk factors identified. 11/08 01:16 [facility] ED Fall Risk Assessment (Adult) History of falling in the last 3 months, ll3 including since admission No falls in past 3 months (0 pts) Confusion or Disorientation No (0 pts) Intoxicated or Sedated No (0 pts) Impaired Gait No (0 pts) Mobility Assist Device Used No (0 pt) Altered Elimination No (0 pt) Score/Fall Risk Level 0 - 2 = Low Risk Oriented to surroundings, Maintained a safe environment, Educated pt \T\ family on fall prevention, incl call for assistance when getting out of bed. Assessment: 11/07 21:46 General: Appears uncomfortable, Behavior is calm, cooperative. Pain: Complains of pain ll3 in H/A Pain does not radiate. Pain currently is 8 out of 10 on a pain scale. Pain began suddenly, Is continuous. 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 Respiratory: Respiratory effort is even, unlabored, Respiratory pattern is regular, symmetrical. Derm: Skin is pink, warm \T\ dry. Vital Signs: 21:09 BP 152 / 89; Pulse 66; Resp 16; Temp 98.4(O); Pulse Ox 97% on R/A; Weight 84.37 kg; kd3 Height 5 ft. 2 in. ; 21:48 BP 160 / 80; Pulse 60; Resp 16; Pulse Ox 98% on R/A; ll3 23:04 BP 155 / 71; Pulse 55; Resp 17; Pulse Ox 98% on R/A; ll3 21:09 Body Mass Index 34.02 (84.37 kg, 157.48 cm) kd3 ED Course: 20:58 Patient arrived in ED. ja2 21:12 Triage completed. kd3 21:12 Arm band placed on right wrist. kd3 21:15 Julien Villalobos MD is Attending Physician. sp4 21:27 Initial lab(s) drawn, by wy, sent to lab. Inserted saline lock: 20 gauge in right ll3 antecubital area, using aseptic technique. Blood collected. 21:36 CT Head C Spine In Process Unspecified. EDMS 21:47 Patient has correct armband on for positive identification. Bed in low position. Call ll3 light in reach. Side rails up X 1. Adult w/ patient. 11/08 00:02 Austin Balderas MD is Hospitalizing Provider. sp4 01:16 No provider procedures requiring assistance completed. Patient admitted, IV remains in ll3 place. Administered Medications: 11/07 21:45 Drug: metoCLOPramide IVP 10 mg Route: IVP; Site: right antecubital; ll3 22:38 Follow up: Response: No adverse reaction; Marked relief of symptoms ll3 21:45 Drug: diphenhydrAMINE IVP 25 mg Route: IVP; Site: right antecubital; ll3 22:38 Follow up: Response: No adverse reaction; Marked relief of symptoms ll3 21:45 Drug: Ketorolac IVP 30 mg Route: IVP; Site: right antecubital; ll3 22:38 Follow up: Response: No adverse reaction; Marked relief of symptoms ll3 11/08 00:35 Drug: Lisinopril PO 5 mg Route: PO; ll3 01:18 Follow up: Response: No adverse reaction ll3 00:35 Drug: rosuvastatin Calcium Sprinkle 10 mg Route: Feeding Tube; ll3 01:18 Follow up: Response: No adverse reaction ll3 00:35 Drug: Aspirin PO Chewable Tablet 324 mg Route: PO; ll3 01:18 Follow up: Response: No adverse reaction ll3 00:35 Drug: Enoxaparin Sub-Q 90 mg Route: Sub-Q; Site: abdomen; ll3 01:18 Follow up: Response: No adverse reaction ll3 Medication: 01:16 VIS not applicable for this client. ll3 Outcome: 00:02 Decision to Hospitalize by Provider. sp4 01:16 Admitted to Tele accompanied by tech, room 431, with chart, Report called to arian Reyes RN 01:16 Condition: stable 01:16 Instructed on the need for admit, Demonstrated understanding of instructions. 01:19 Patient left the ED. ll3 Signatures: Dispatcher [employer] EDTracey Jaime Lynsea, RN RN ll3 Ranjana Saleh RN RN kd3 Julien Villalobos MD MD sp4 Corrections: (The following items were deleted from the chart) 01:18 01:16 Admitted to Tele accompanied by tech, via wheelchair, room , with chart, Report ll3 called to MATTIE Reyes ll3
[2022-11-08] MEDS ORDERED: ASPIRIN 81 MG CHEWABLE TABLET ONE (00:25)
[2022-11-08] MEDS ORDERED: lisinopriL 5 MG TAB ONE (00:25)
[2022-11-08] MEDS ORDERED: ENOXAPARIN 100 MG/ML SYR SQ ONE (00:25)
[2022-11-08] MEDS ORDERED: ROSUVASTATIN 10 MG TAB ONE (00:29)
--- NOTE | 2022-11-08 00:39 | P.HP ---
Certification for Inpatient Patient admitted to: Inpatient With expected LOS: >2 Midnights Patient will require the following post-hospital care: None Practitioner: I am a practitioner with admitting privileges, knowledge of patient current condition, hospital course, and medical plan of care. 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 She reports she was driving her vehicle when she became dizzy and had a headache, felt like she was going to pass out. She reports a similar episode on Saturday which lasted for about 15 to 20 minutes while she was taking a shower, this episode lasted for approximately 5 to 10 minutes. She denies any chest pain or palpitations during the episode. In 2018 she had her pacemaker battery repl aced, had a heart catheterization which she reports was normal, in May of this year she had a stress test and echocardiogram which she also was told were normal. She was evaluated in the emergency department her labs were significant for elevated high-sensitivity troponin 106.6 potassium 3.4 EKG without STEMI criteria present. She was given aspirin, Lovenox, statin in ED. ED provider wishes to admit for further evaluation and management of NSTEMI. Allergies latex Allergy (Verified 06/09/20 09:44) Rash Home Medications: Cholecalciferol (Vitamin D3) [Vitamin D3] 5,000 unit PO DAILY 06/11/20 Docusate [Colace Cap] 300 mg PO DAILY 06/11/20 Piper Tazo [Zosyn] 3.375 gm IV TID 06/11/20 Progesterone, Micronized [Progesterone] 200 mg PO DAILY 06/11/20 - Past Medical/Surgical History -: Hypertension -: Hyperlipidemia -: Pacemaker Psychosocial/ Personal History: Patient is retired, lives at home with her spouse - Family History Father -: Heart disease Mother -: Cancer Sister -: Cancer - Social History Smoking Status: Never smoker Alcohol use: No CD- Drugs: No Caffeine use: Yes Place of Residence: Home Review of Systems 10-point ROS is otherwise unremarkable Cardiovascular: Light Headedness, Other (Near syncope) Neurological: Other (Headache/dizziness) Physical Examination - Physical Exam General: Alert, In no apparent distress, Oriented x3 HEENT: Atraumatic, PERRLA, Mucous membr. moist/pink, EOMI, Sclerae nonicteric Neck: Supple, 2+ carotid pulse no bruit, No LAD, Without JVD or thyroid abnormality Respiratory: Clear to auscultation bilaterally, Normal air movement Cardiovascular: Regular rate/rhythm, Normal S1 S2 Gastrointestinal: Normal bowel sounds, No tenderness Musculoskeletal: No tenderness Integumentary: No rashes Neurological: Normal gait, Normal speech, Normal strength at 5/5 x4 extr, Normal tone, Normal affect Lymphatics: No axilla or inguinal lymphadenopathy - Studies Laboratory Data (last 24 hrs) 11/07/22 21:26: PT 10.7, INR 0.97 11/07/22 21:26: WBC 6.60, Hgb 13.1, Hct 39.2, Plt Count 268 11/07/22 21:26: Sodium 136, Potassium 3.4 L, BUN 13, Creatinine 0.74, Glucose 1 21 H, Total Bilirubin 0.3, AST 16, ALT 27, Alkaline Phosphatase 84 Assessment and Plan - Plan Assessment: NSTEMI Hypertension Hyperlipidemia Plan: NSTEMI Unclear etiology currently. Had heart catheterization which she reports was normal in 2018 along with replacement of her pacemaker battery, had stress test and echo in May of this year which her soldering inspector told her were normal as well. She denies any chest pain or shortness of breath currently, troponin elevated without EKG findings to suggest STEMI. She is on hormone replacement therapy will obtain D-dimer, she is not tachycardic or hypoxic currently. Continue aspirin, statin, therapeutic Lovenox. Cardiology consult in place, will continue to trend troponin levels and obtain echocardiogram. Hypertension Hyperlipidemia Continue home medications. DVT PPX: Therapeutic Lovenox Code status: Full Discharge Plan: Home Plan to discharge in: 48 Hours - Advance Directives Does patient have a Living Will: No Does patient have a Durable POA for Healthcare: No - Code Status/Comfort Care Code Status Assessed: Yes (Full code) Critical Care: No Time Spent Managing Pts Care (In Minutes): 55
[2022-11-08 01:10] LABS: Troponin High Sensitivity 96.1 pg/mL (<58.9)
[2022-11-08] MEDS ORDERED: ONDANSETRON 4 MG/2 ML VIAL IV PRN (01:24)
[2022-11-08] MEDS ORDERED: MORPHINE 2 MG/ML SYR IV PRN (01:24)
[2022-11-08 02:10] VITALS: BMI 34.0
[2022-11-08 06:29] LABS: Absolute Lymphocytes (CBC) 2.2 K/uL (0.7-4.9); Hematocrit 36.9 % (36.0-45.0); Lymphocytes % 29.8 % (15.3-44.8); MCV 88.8 fL (80-100); MPV 7.6 fL (7.6-11.3); RBC Red Blood Cell Count 4.15 M/uL (3.86-4.86)
[2022-11-08 06:56] LABS: Potassium 3.9 mEq/L (3.5-5.1); Thyroid Stimulating Hormone 2.5 uIU/mL (0.358-3.740)
[2022-11-08 06:57] LABS: Troponin High Sensitivity 93.8 pg/mL (<58.9)
[2022-11-08] MEDS ORDERED: ASPIRIN EC 81 MG TAB PO SCH (09:00)
[2022-11-08] MEDS ORDERED: ENOXAPARIN 80 MG/0.8 ML SQ SCH (09:00)
[2022-11-08] MEDS ORDERED: lisinopriL 5 MG TAB PO SCH (09:00)
--- NOTE | 2022-11-08 09:00 | P.PN ---
Date of Service: 11/08/22 Subjective: tentative thursday 11/09 note ROS: 10 point ROS as noted above, otherwise negative Physical Exam: GEN: Alert, oriented, NAD HEENT: Normal conjunctiva, sclera anicteric CV: Regular rate and rhythm, no edema Pulm: Nonlabored respirations on room air ABD: Soft, nontender, nondistended MSK: No joint tenderness Integumentary: No rashes Neuro: Normal speech, normal affect vitals reviewed Problem List: NSTEMI Hypertension Hyperlipidemia NSTEMI Unclear etiology currently. Had heart catheterization which she reports was normal in 2018 along with replacement of her pacemaker battery, had stress test and echo in May of this year which her warehouse insulation worker told her were normal as well. troponin elevated without EKG findings to suggest STEMI. She is on hormone replacement therapy since ~2019 will obtain D-dimer Continue aspirin, statin, therapeutic Lovenox. Cardiology consulted continue to trend troponin levels echocardiogram ordered Hypertension Hyperlipidemia Continue home medications. VTE: therapeutic lovenox Code: Full Dispo: Home ~1-2 days
[2022-11-08 12:09] VITALS: O2SAT 99
--- NOTE | 2022-11-08 14:27 | RAD REPORT ---
EXAM DESCRIPTION: RAD - Chest Single View - 11/08/2022 12:45 am CLINICAL HISTORY: The patient is 62 years old and is Female; CHEST PAIN TECHNIQUE: Frontal view of the chest. COMPARISON: No relevant prior studies available. FINDINGS: LUNGS: Unremarkable. No consolidation. PLEURAL SPACE: Unremarkable. No pneumothorax. HEART: Unremarkable. No cardiomegaly. MEDIASTINUM: Unremarkable. BONES/JOINTS: Unremarkable. TUBES, LINES AND DEVICES: A left-sided pacemaker is present. UPPER ABDOMEN: Unremarkable as visualized. IMPRESSION: No acute cardiopulmonary process. Electronically signed by: Beatriz Beach MD 11/08/2022 12:57 AM CDT Due to temporary technical issues with the PACS/Fluency reporting system, reports are being signed by the in house radiologists without review as a courtesy to insure prompt reporting. The interpreting radiologist is fully responsible for the content of the report.
[2022-11-08 17:28] VITALS: BP 140/77; TEMP 98.5
--- NOTE | 2022-11-08 17:40 | EKG ---
Test Date: 2022-11-07 Test Time: 23:00:04 Assignment Clerk: ALLA MEASUREMENT RESULTS: Intervals: Rate: 58 HI: 246 QRSD: 124 QT: 434 QTc: 426 [place]: P: 106 HI: 246 QRS: -43 T: 0 INTERPRETIVE STATEMENTS: Electronic atrial pacemaker Left axis deviation Septal infarct, age undetermined Abnormal ECG Compared to ECG 05/16/2018 18:13:39 Ventricular-paced complex(es) or rhythm no longer present Myocardial infarct finding still present Electronically Signed On 11-08-22 17:39:17 CDT by Elias Woodard
[2022-11-08] MEDS ORDERED: ROSUVASTATIN 10 MG TAB PO SCH (21:00)
--- NOTE | 2022-11-09 06:49 | ECHO ---
HEIGHT: 5 ft 2 in WEIGHT: 186 lb 0 oz DATE OF STUDY: 11/08/[address]: Jonas Gonzalez NP 2-DIMENSIONAL: YES M.MODE: YES DOPPLER: YES COLOR FLOW: YES TDS: PORTABLE: YES DEFINITY: BUBBLE STUDY: DIAGNOSIS: NON ST ELEVATION MYOCARDIAL INFARCTION CARDIAC HISTORY: CATHERIZATION: YES SURGERY: NO PROSTHETIC VALVE: NO PACEMAKER: YES MEASUREMENTS (cm) DIASTOLIC (NORMALS) SYSTOLIC (NORMALS) IVSd 1.1 (0.6-1.2) LA Diam 3.1 (1.9-4.0) LVEF 65% LVIDd 4.5 (3.5-5.7) LVIDs 2.9 (2.0-3.5) %FS 36% LVPWd 1.1 (0.6-1.2) Ao Diam 2.3 (2.0-3.7) 2 DIMENSIONAL ASSESSMENT: RIGHT ATRIUM: NORMAL LEFT ATRIUM: NORMAL RIGHT VENTRICLE: NORMAL LEFT VENTRICLE: NORMAL TRICUSPID VALVE: MILD TRICUSPID REGURGITATION MITRAL VALVE: NORMAL PULMONIC VALVE: NORMAL AORTIC VALVE: NORMAL PERICARDIAL EFFUSION: NONE AORTIC ROOT: NORMAL LEFT VENTRICULAR WALL MOTION: NORMAL DOPPLER/COLOR FLOW: MILD TRICUSPID REGURGITATION COMMENTS: 1. NORMAL LEFT VENTRICULAR EJECTION FRACTION 60-65% 2. NORMAL WALL MOTION 3. MILD TRICUSPID REGURGITATION TECHNOLOGIST: ELIJAH ALAS
--- NOTE | 2022-11-09 06:53 | P.DS ---
Admission Date: 11/08/22 Discharge Date: 11/08/22 Disposition: ROUTINE DISCHARGE Discharge Condition: GOOD Reason for Admission: NSTEMI Consultations: Cardiology - Dr. 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 She reports she was driving her vehicle when she became dizzy and had a headache, felt like she was going to pass out. She reports a similar episode on Saturday which lasted for about 15 to 20 minutes while she was taking a shower, this episode lasted for approximately 5 to 10 minutes. She denies any chest pain or palpitations during the episode. In 2018 she had her pacemaker battery replaced, had a heart catheterization which she reports was normal, in May of this year she had a stress test and echocardiogram which she also was told were normal. She was given aspirin, Lovenox, statin in ED Hospital Course: Problem List: NSTEMI Hypertension Hyperlipidemia Patient presented after episode of dizziness/lightheadedness and near-syncope. She was found to have mildly elevated troponin levels up to 100. These were trended and remained 90-100. She was monitored on telemetry without any events. Her pacemaker was interrogated without any noted events reported. Labs were otherwise unremarkable. CT head/neck without acute findings. She was afebrile, and vitals were within normal limits and stable. She did not h ave any recurrence of her symptoms and was ambulating without difficulty. Orthostatic vital signs were negative. Cardiology was consulted and deemed patient stable for discharge home, no further inpatient workup warranted at this time. Unclear etiology of this event. This seems to be the worst of many episodes she has had over the last several months-year. She has undergone further evaluation with her physicians in the recent past with negative stress testing, normal echocardiogram, no events on prior pacemaker interrogations. Heart cath in 2019 was clean. Patient to follow up with her Electric Installer in the next few weeks. Follow up with PCP within 1 week No change in medications Physical Exam: GEN: Alert, oriented, NAD HEENT: Normal conjunctiva, sclera anicteric CV: Regular rate and rhythm, no edema Pulm: Nonlabored respirations on room air ABD: Soft, nontender, nondistended MSK: No joint tenderness Integumentary: No rashes Neuro: Normal speech, normal affect Vital Signs/Physical Exam: Temp Pulse Resp BP Pulse Ox 98.5 F 64 18 140/77 99 11/08/22 16:00 11/08/22 16:00 11/08/22 16:00 11/08/22 16:00 11/08/22 16:00 Laboratory Data at Discharge: WBC 7.30 thou/uL (4.3-10.9) 11/08/22 06:04 Hgb 12.6 g/dL (12.0-15.0) 11/08/22 06:04 Hct 36.9 % (36.0-45.0) 11/08/22 06:04 Plt Count 249 thou/uL (152-406) 11/08/22 06:04 PT 10.7 SECONDS (9.5-12.5) 11/07/22 21:26 INR 0.97 11/07/22 21:26 Sodium 134 mEq/L (136-145) L 11/08/22 06:04 Potassium 3.9 mEq/L (3.5-5.1) D 11/08/22 06:04 BUN 17 mg/dL (7-18) 11/08/22 06:04 Creatinine 0.83 mg/dL (0.55-1.02) 11/08/22 06:04 Glucose 115 mg/dL (74-106) H 11/08/22 06:04 Total Bilirubin 0.3 mg/dL (0.2-1.0) 11/07/22 21:26 AST 16 U/L (15-37) 11/07/22 21:26 ALT 27 U/L (13-56) 11/07/22 21:26 Alkaline Phosphatase 84 U/L (45-117) 11/07/22 21:26 Home Medications: Cholecalciferol (Vitamin D3) [Vitamin D3] 5,000 unit PO DAILY 06/11/20 Docusate [Colace Cap] 300 mg PO DAILY 06/11/20 Progesterone, Micronized [Progesterone] 200 mg PO DAILY 06/11/20 Lisinopril [Zestril] 5 mg PO DAILY 11/08/22 Rosuvastatin [Crestor] 10 mg PO DAILY 11/08/22 Thyroid,Pork [[place] Thyroid] 60 mg PO DAILY 11/08/22 Physician Discharge Instructions: Patient presented after episode of dizziness/lightheadedness and near-syncope. She was found to have mildly elevated troponin levels up to 100. These were trended and remained 90-100. She was monitored on telemetry without any events. Her pacemaker was interrogated without any noted events reported. Labs were otherwise unremarkable. CT head/neck without acute findings. She was afebrile, and vitals were within normal limits and stable. She did not have any recurrence of her symptoms and was ambulating without difficulty. Orthostatic vital signs were negative. Cardiology was consulted and deemed patient stable for discharge home, no further inpatient workup warranted at this time. Unclear etiology of this event. This seems to be the worst of many episodes she has had over the last several months-year. She has undergone further evaluation with her physicians in the recent past with negative stress testing, normal echocardiogram, no events on prior pacemaker interrogations. Heart cath in 2019 was clean. Patient to follow up with her Electric Installer in the next few weeks. Follow up with PCP within 1 week No change in medications Followup: Kolby Dang MD [ACTIVE - CAN ADMIT] - 1 Week (Call for appointment.) Elias Woodard MD [ACTIVE - CAN ADMIT] - 11/12/22 (Call for appointment.) Time spent managing pt's care (in minutes): 45
== END 2022-11-08 18:28 | disposition home or self-care (01) | DRG 282 ==
LOC: ER 20:54 → ERHOLD 11-08 00:27 → 4TH 11-08 00:51
PROVIDERS: ADMIT Hospitalist; ATTEND Hospitalist
DX: I21.4 Non-ST elevation (NSTEMI) myocardial infarction (principal); I10 Essential (primary) hypertension; E78.5 Hyperlipidemia, unspecified; Z95.0 Presence of cardiac pacemaker; Z91.040 Latex allergy status; Z79.899 Other long term (current) drug therapy
CPT/HCPCS: 36415; 70450; 71045; 72125; 80048; 80076; 83880; 84439; 84443; 84484; 85025; 85379; 85610; 93005; 93280; 93306; 96372; 96374; 96375; 99285; J1200; J1650; J2765